=== PATIENT | male | born 1935 | race Hispanic/Latino ===

== ENCOUNTER 2019-06-24 15:06 | Observation (INO) | payer MEDICARE ==
[~2019-06-24] VITALS: Ht 172.7 cm; Wt 88.1 kg
[~2019-06-24 15:06] MED LIST: ASPI-1197 PO; DOCU100T PO; INSU200I SQ; INSU3INS3 SQ; LOSA1TAB54 PO; SERT25TA5 PO; SIMV20TA6 PO
[2019-06-24] MEDS ORDERED: AZITHROMYCIN 500MG+NS 250ML 250 ML IV ONE (15:35)
[2019-06-24] MEDS ORDERED: METHYLPREDNISOLONE SOD SUCC 40MG/ML 1ML ONE (15:35)
[2019-06-24] MEDS ORDERED: CEFTRIAXONE SODIUM 1 GM ONE (15:36)
[2019-06-24] MEDS ORDERED: 1/2 NORMAL SALINE 1,000 ML IV ONE (15:36)
[2019-06-24 15:37] LABS: BASOPHILS % (AUTO) 0.5 % (0.0-5.0); EOSINOPHILS % (AUTO) 2.3 % (0.0-8.0); HEMATOCRIT 35.9 % (42-54); LYMPHOCYTES % (AUTO) 16.8 % (21.0-51.0); MEAN CORPUSCULAR HGB CONC 33.4 g/dL (32.0-36.0); MEAN CORPUSCULAR VOLUME 83.8 fL (79-99); MONOCYTES % (AUTO) 5.6 % (3.0-13.0); NEUTROPHILS % (AUTO) 74.8 % (40.0-77.0); PLATELET COUNT (AUTO) 263 K/uL (130-400); RED BLOOD CELL COUNT(AUTO) 4.28 MIL/uL (4.50-6.20); RED CELL DISTRIBUTION WIDTH 14.7 % (11.0-15.5); WHITE BLOOD COUNT (AUTO) 15.5 K/uL (4.8-10.8)
[2019-06-24] MEDS ORDERED: SODIUM CHLORIDE 0.9% 50 ML IV ONE (15:37)
[2019-06-24 15:47] LABS: CREATININE 1.8 mg/dL (0.5-1.5); POTASSIUM 4.7 mmol/L (3.5-5.1)
[2019-06-24 15:52] LABS: ALBUMIN 3.3 g/dL (3.5-5.0); BILIRUBIN,DIRECT 0.1 mg/dL (0.0-0.3); BILIRUBIN,TOTAL 0.4 mg/dL (0.2-1.0); TOTAL PROTEIN, SERUM 8.2 g/dL (6.0-8.3)
[2019-06-24] MEDS ORDERED: IPRATROPIUM/ALBUTEROL SULFATE 3 ML SOLUTION IH ONE ×2 (16:11→18:04)
--- NOTE | 2019-06-24 19:30 | NUR ---
ADMISSION. PT ADMITTED INTO ROOM 415. PT AWAKE, ALERT AND RESPONSIVE ABLE TO VERBALIZE NEEDS. PT IN NO RESPIRATORY DISTRESS AT THIS TIME, ADMISSION VITALS ASSESSES OXYGEN SATURATION 97% ON ROOM AIR. PT DAUGHTER AT BEDSIDE, PT AND DAUGHTER ORIENTED TO ROOM, CALL GONZALEZ WITHIN REACH, BED IN LOWEST POSITION. Addendum: 06/24/19 at 2238 by ZARINA CARDONA RN Amended: Links added.
[2019-06-24 19:40] VITALS: BP 144/63
[2019-06-24 20:00] VITALS: BP 144/63
[2019-06-24] MEDS ORDERED: ENOXAPARIN SODIUM 40 MG/0.4 ML SYRINGE SQ SCH (20:00)
[2019-06-24] MEDS ORDERED: NITROGLYCERIN 0.4 MG SL TAB SL PRN (20:00)
[2019-06-24] MEDS ORDERED: DIPHENHYDRAMINE HCL 25 MG CAPSULE PO PRN (20:00)
[2019-06-24] MEDS ORDERED: GUAIFENESIN-DM 200/20 MG 10 ML PO PRN (20:00)
[2019-06-24] MEDS: 1/2 NORMAL SALINE 1,000 ML IV SCH (20:00)
[2019-06-24] MEDS ORDERED: ONDANSETRON HCL 4 MG/2 ML VIAL IVP PRN (20:00)
[2019-06-24] MEDS ORDERED: ALBUTEROL SULFATE 0.083% 2.5 MG/3 ML INH IH PRN (20:00)
[2019-06-24] MEDS ORDERED: ACETAMINOPHEN 325 MG TAB PO PRN (20:00)
[2019-06-24] MEDS ORDERED: ZOLPIDEM TARTRATE 5 MG TAB PO PRN (20:00)
[2019-06-24] MEDS ORDERED: GLUCAGON 1MG KIT 1 MG ML IM PRN (20:30)
[2019-06-24] MEDS ORDERED: DEXTROSE 50%-WATER 50 ML DISP.SYRIN IV PRN (20:30)
[2019-06-24] MEDS ORDERED: INSULIN LISPRO 100 UNIT/ML 3ML SQ SCH (21:00)
[2019-06-24] MEDS ORDERED: ALBU8.5H8 IH (23:07)
[2019-06-24] MEDS ORDERED: RIVA20TA PO (23:07)
[2019-06-24] MEDS ORDERED: IPRA3AMP24 IH (23:07)
[2019-06-24] MEDS ORDERED: FURO20TA4 PO (23:07)
[2019-06-24] MEDS ORDERED: LEVO100T12 PO (23:07)
[2019-06-24] MEDS ORDERED: DULA1.5P SQ (23:07)
[2019-06-24] MEDS ORDERED: MEMA10TA11 PO (23:07)
[2019-06-24] MEDS ORDERED: LOSA1TAB37 PO (23:07)
[2019-06-24] MEDS ORDERED: PROP150T28 PO (23:07)
[2019-06-24] MEDS ORDERED: OLME20TA22 PO (23:07)
[2019-06-24] MEDS ORDERED: MEMA10TA20 PO (23:07)
[2019-06-24] MEDS ORDERED: ATOR40TA71 PO (23:07)
[2019-06-24] MEDS ORDERED: BACL10TA PO (23:07)
[2019-06-24] MEDS ORDERED: DONE5TAB33 PO (23:07)
[2019-06-24] MEDS ORDERED: IBUP-2784 PO (23:07)
[2019-06-24] MEDS: IPRATROPIUM/ALBUTEROL SULFATE 3 ML SOLUTION IH SCH (23:31)
[2019-06-25 00:07] VITALS: BP 147/76
[2019-06-25 04:00] VITALS: BP 161/71
[2019-06-25 04:23] LABS: BASOPHILS % (AUTO) 0.2 % (0.0-5.0); EOSINOPHILS % (AUTO) 0.1 % (0.0-8.0); HEMATOCRIT 31.8 % (42-54); MEAN CORPUSCULAR HEMOGLOBIN 27.9 pg (27.0-33.0); MEAN CORPUSCULAR HGB CONC 33.9 g/dL (32.0-36.0); MEAN CORPUSCULAR VOLUME 82.4 fL (79-99); MONOCYTES % (AUTO) 1.2 % (3.0-13.0); NEUTROPHILS % (AUTO) 93.5 % (40.0-77.0); PLATELET COUNT (AUTO) 259 K/uL (130-400); RED BLOOD CELL COUNT(AUTO) 3.86 MIL/uL (4.50-6.20); RED CELL DISTRIBUTION WIDTH 14.9 % (11.0-15.5); WHITE BLOOD COUNT (AUTO) 13.3 K/uL (4.8-10.8)
[2019-06-25 04:41] LABS: BILIRUBIN,DIRECT 0.1 mg/dL (0.0-0.3); BILIRUBIN,TOTAL 0.3 mg/dL (0.2-1.0); CREATININE 1.8 mg/dL (0.5-1.5); TOTAL PROTEIN, SERUM 7.7 g/dL (6.0-8.3)
[2019-06-25] MEDS: INSULIN LISPRO 100 UNIT/ML 3ML SQ SCH ×2 (06:08→16:36)
[2019-06-25] MEDS: IPRATROPIUM/ALBUTEROL SULFATE 3 ML SOLUTION IH SCH ×3 (07:03→20:59)
[2019-06-25 07:30] VITALS: BP 129/63
[2019-06-25 11:00] VITALS: BP 122/61
[2019-06-25] MEDS ORDERED: AZITHROMYCIN 500MG+NS 250ML 250 ML IV SCH (15:00)
[2019-06-25] MEDS ORDERED: CEFTRIAXONE SODIUM 1 GM IVP SCH (15:00)
[2019-06-25 16:00] VITALS: BP 151/69
[2019-06-25] MEDS: METHYLPREDNISOLONE SOD SUCC 125MG/2ML VIAL IVP SCH (16:21)
[2019-06-25] MEDS: 1/2 NORMAL SALINE 1,000 ML IV SCH (16:22)
[2019-06-25 20:00] VITALS: BP 146/71
[2019-06-26 00:41] VITALS: BP 106/52
[2019-06-26] MEDS: IPRATROPIUM/ALBUTEROL SULFATE 3 ML SOLUTION IH SCH ×2 (01:53→06:45)
[2019-06-26 04:11] LABS: HEMATOCRIT 31.1 % (42-54); MEAN CORPUSCULAR HEMOGLOBIN 28.1 pg (27.0-33.0); MEAN CORPUSCULAR HGB CONC 33.6 g/dL (32.0-36.0); MEAN CORPUSCULAR VOLUME 83.5 fL (79-99); PLATELET COUNT (AUTO) 222 K/uL (130-400); RED BLOOD CELL COUNT(AUTO) 3.72 MIL/uL (4.50-6.20); RED CELL DISTRIBUTION WIDTH 15.1 % (11.0-15.5); WHITE BLOOD COUNT (AUTO) 19.1 K/uL (4.8-10.8)
[2019-06-26] MEDS: METHYLPREDNISOLONE SOD SUCC 125MG/2ML VIAL IVP SCH (04:14)
[2019-06-26 04:38] VITALS: BP 129/62
[2019-06-26 04:42] LABS: CREATININE 1.6 mg/dL (0.5-1.5); POTASSIUM 4.1 mmol/L (3.5-5.1)
[2019-06-26] MEDS: INSULIN LISPRO 100 UNIT/ML 3ML SQ SCH (06:32)
--- NOTE | 2019-06-26 07:40 | NUR ---
Pt awake,alert, oriented and able to answer questions appropriately. Denies pain at the moment. He is sitting up on the edge of the bed having breakfast.
[2019-06-26 08:00] VITALS: BP 138/62
--- NOTE | 2019-06-26 09:45 | NUR ---
Pt's daughter called to check on pt, informed her that her father has been discharged and her father will need to be pick out hand, she said she will send her sister Ashli to pick him up
--- NOTE | 2019-06-26 10:40 | NUR ---
Discharge instructions and follow up appointment given to pt and his daughter Ashli, verbalized understanding.
== END 2019-06-26 10:55 | disposition home or self-care (01) ==
LOC: EDH 15:06 → EDHIP 15:07 → UNDOADMOB 15:07 → 3AH 15:07 → 4CH 19:31
PROVIDERS: ADMIT Internal Medicine; ATTEND Internal Medicine
DX: J44.1 Chronic obstructive pulmonary disease with (acute) exacerbation (principal); A41.9 Sepsis, unspecified organism; D64.9 Anemia, unspecified; E11.9 Type 2 diabetes mellitus without complications; E78.5 Hyperlipidemia, unspecified; N17.9 Acute kidney failure, unspecified; Z79.01 Long term (current) use of anticoagulants; Z95.2 Presence of prosthetic heart valve
CPT/HCPCS: 36415 ×3; 71046; 80048 ×3; 80076 ×2; 82948 ×5; 85025 ×2; 85027; 94640 ×7; 94664; 96365; 96366; 96372 ×3; 96375; 96376; 99284; G0378 ×37; J0456 ×2; J0696 ×2; J1650; J2920; J2930 ×2

== ENCOUNTER → 2021-12-30 | Outpatient (CLI) | payer MEDICARE ==
[~2021-12-30] MED LIST changes: +ALBU8.5H8 IH; +ATOR40TA71 PO; +BACL10TA PO; -DOCU100T PO; +DONE5TAB33 PO; +DULA1.5P SQ; +FURO20TA4 PO; +IBUP-2784 PO; -INSU200I SQ; +IPRA3AMP24 IH; +LEVO100T12 PO; +LOSA1TAB37 PO; -LOSA1TAB54 PO; +MEMA10TA11 PO; +MEMA10TA55 PO; +OLME20TA22 PO; +PROP150T28 PO; +RIVA20TA PO; +SERT-438 PO; -SERT25TA5 PO; -SIMV20TA6 PO
== END | disposition home or self-care (01) ==
LOC: SHCH 12:09
PROVIDERS: ATTEND Internal Medicine Cardiovascular Disease
DX: I08.0 Rheumatic disorders of both mitral and aortic valves (principal); I48.0 Paroxysmal atrial fibrillation; R00.2 Palpitations; Z95.2 Presence of prosthetic heart valve
CPT/HCPCS: 93306

== ENCOUNTER 2024-11-10 16:16 | Emergency (ER) | payer MEDICARE ==
[~2024-11-10] VITALS: Ht 182.9 cm; Wt 77.1 kg
[~2024-11-10 16:16] MED LIST changes: -ALBU8.5H8 IH; -ASPI-1197 PO; -ATOR40TA71 PO; -BACL10TA PO; -DONE5TAB33 PO; -DULA1.5P SQ; -FURO20TA4 PO; -IBUP-2784 PO; -INSU3INS3 SQ; -IPRA3AMP24 IH; -LEVO100T12 PO; +LINE600T11 PO; -LOSA1TAB37 PO; -MEMA10TA11 PO; -MEMA10TA55 PO; +NYST100033 PO; -OLME20TA22 PO; -PROP150T28 PO; -RIVA20TA PO; -SERT-438 PO
--- NOTE | 2024-11-10 16:43 | ERN ---
General Chief Complaint: Abnormal Labs Stated Complaint: ABNORMAL LABS Time Seen by MD: 16:19 Source: patient, EMS History of Present Illness Initial Comments Patient is a an 88-year-old male coming in to be evaluated for abnormal labs. Per EMS patient was sent in for further he evaluation due to abnormal labs. Unknown what labs are abnormal. Allergies: Coded Allergies: No Known Allergies (Unverified Allergy, Unknown, 06/20/15) Home Meds Reported Medications Linezolid (Zyvox) 600 Mg Tablet, 1 TAB PO BID for 14 Days, #28 TAB 0 Refills with food 10/20/24 Nystatin (Nystatin) 100,000 Unit/Ml Oral.susp, 5 ML PO QID for 10 Days, #200 ML 0 Refills 10/20/24 Past Medical History Past Medical History: A-Fib, CAD, COPD, Dementia, Depression, Diabetes-Type II, High Cholesterol, Heart Disease, Hypertension, Hypothyroid, Renal Disese Medical History Other: CELLULITIS, OSTEOMYLITIS, DYSPHAGIA, ULCERS TO LEFT HEEL & MIDFOOT, AMS Past Surgical History: None Family History Family History: Negative Social History Social History: Negative ROS Dictation CONSTITUTIONAL: No chills, no fever, no weakness, no diaphoresis, no malaise. HEAD/FACE: No signs of trauma. EENT: No eye pain, no blurred vision, no tearing, no double vision, no ear pain, no ear discharge, no nose pain, no nasal congestion, no throat pain, no throat swelling, no mouth pain. RESPIRATORY: No cough, no orthopnea, no SOB, no stridor, no wheezing. CARDIOVASCULAR: No chest pain, no edema, no palpitations, no syncope. GASTROINTESTINAL/ABDOMINAL: No abdominal pain, no constipation, no diarrhea, no nausea, no vomiting. GENITOURINARY: No abnormal discharge, no dysuria, no frequent urination, no hematuria. No complaints of pain in the genitals. MUSCULOSKELETAL: No back pain, no gout, no joint pain, no joint swelling, no muscle pain, no muscle stiffness, no neck pain. INTEGUMENTARY: No change in color, no change in hair/nails, no dryness, no lesion, no lumps, no rash. NEUROLOGICAL/PSYCH: No anxiety, not depressed, no emotional problem, no headache, no numbness, no pre-existing deficit, no history of seizures, no tremors, no weakness. HEMATOLOGIC/LYMPHATIC: Not anemic, no history of blood clots, no apparent bleeding, no bruising, glands not swollen. All Systems Negative, Except as Noted. Physical Exam Physical Exam Dictation VITAL SIGNS: Reviewed. GENERAL APPEARANCE: Alert, disoriented, no acute distress, obese. HEAD AND FACE: Non-traumatic. EYES: PERRL, pink conjunctivas, eyelid no trauma, anterior chamber clear. EARS: Pinnas intact and no signs of trauma or erythema. Ear canals clear and no discharge. TMs no erythema. NOSE: No discharge, no bleeding. OROPHARYNX: Mouth normal, teeth no caries, tongue pink. Pharynx clear, no erythema. Tonsils no exudates, no abscesses noted. Mucous membrane moist. NECK: Supple, non-tender, no thyromegaly, no masses, no JVD, no bruits. BREAST: Deferred. CHEST: No tenderness, no crepitus, no paradoxical movement, no retractions. LUNGS: Clear, well-ventilated, symmetric, no rales, no wheezing, no rhonchi, no stridor, good breath sounds bilaterally. HEART: Regular rate, regular rhythm, no murmur, no gallops. VASCULAR: No peripheral edema. ABDOMEN: Soft, positive bowel sounds, nondistended, no guarding, nontender, no rebound, no masses no hepatomegaly, no splenomegaly, no Juarez's sign, no hernias. RECTAL: Deferred. GENITAL: Deferred. NEUROLOGICAL: Normal speech, gross motor function intact, gross sensory function intact. MUSCULOSKELETAL: Neck nontender, full range of motion, back nontender, full range of motion. EXTREMITIES: Nontender, full range of motion. SKIN: Color pink, dry, no turgor, no rash, no lacerations, no abrasions, no contusions. LYMPHATICS: Deferred. Results Laboratory and Microbiology Lab and Micro Result Laboratory Tests Test 11/10/24 15:20 11/10/24 16:40 Urine Color YELLOW (YELLOW) Urine Appearance CLOUDY (CLEAR) H Urine pH 5.0 (5.0-8.0) Urine Specific [place] 1.014 (1.001-1.031) Urine Protein 50 mg/dL (NEGATIVE) H Urine Glucose (UA) 150 mg/dL (NEGATIVE) H Urine Ketones 5 mg/dL (NEGATIVE) H Urine Occult Blood SMALL (NEGATIVE) H Urine Nitrate 1+ (NEGATIVE) H Urine Bilirubin NEGATIVE mg/dL (NEGATIVE) Urine Urobilinogen 0.2 mg/dL (0.2-1.0) Urine Leukocyte Esterase 500 Parish/uL (NEGATIVE) H Urine RBC 26-50 /HPF (0-1) H Urine WBC 51-100 /HPF (0-1) H Urine WBC Clumps (Auto) FEW /HPF (0-1) Urine Other Crystals (Auto) 9 /HPF (None Seen) Urine Bacteria RARE /HPF (None Seen) Urine Yeast MOD /HPF (None Seen) White Blood Count 16.1 K/uL (4.8-10.8) H Red Blood Count 3.26 MIL/uL (4.50-6.20) L Hemoglobin 8.6 g/dL (14.0-18.0) L Hematocrit 29.4 % (42-54) L Mean Corpuscular Volume 90.2 fL (79-99) Mean Corpuscular Hemoglobin 26.4 pg (27.0-33.0) L Mean Corpuscular Hemoglobin Concent 29.3 g/dL (32.0-36.0) L Red Cell Distribution Width 16.9 % (11.0-15.5) H Platelet Count 259 K/uL (130-400) Mean Platelet Volume 9.1 fL (7.5-10.5) Immature Granulocyte % (Auto) 3.2 % (0-1) H Neutrophils (%) (Auto) 83.1 % (40.0-77.0) H Lymphocytes (%) (Auto) 6.3 % (21.0-51.0) L Monocytes (%) (Auto) 4.0 % (3.0-13.0) Eosinophils (%) (Auto) 3.0 % (0.0-8.0) Basophils (%) (Auto) 0.4 % (0.0-5.0) Neutrophils # (Auto) 13.4 K/uL (1.8-7.7) H Lymphocytes # (Auto) 1.0 K/uL (1.0-4.8) Monocytes # (Auto) 0.6 K/uL (0.1-1.0) Eosinophils # (Auto) 0.49 K/uL (0.00-0.70) Basophils # (Auto) 0.06 K/uL (0.00-0.20) Absolute Immature Granulocyte (auto 0.51 K/uL (0-1) Nucleated Red Blood Cells 0.0 % (0.0-0.19) Sodium Level 153 mmol/L (136-145) H Potassium Level 3.6 mmol/L (3.5-5.1) Chloride Level 102 mmol/L (101-111) Carbon Dioxide Level 35 mmol/L (21-32) H Blood Urea Nitrogen 179 mg/dL (7-18) *H Creatinine 14.6 mg/dL (0.5-1.3) *H Glomerular Filtration Rate Calc 3 mL/min (>90) Random Glucose 282 mg/dL (70-105) H Total Calcium 8.0 mg/dL (8.5-10.1) L EKG/XRAY/US/CT/MRI X-RAY Comment [place] [id number] [id number] IMAGING REPORT Signed PATIENT: IDANIA GOLD JR MR#: [id number] : 1935 SEX: M AGE: 88 LOCATION: [facility] ORDER 13 STATUS: REG REPORT#: [id number] SERVICE 12 REASON: cough ORDERING PHYSICIAN: CALVIN ESPANA MD PROCEDURE: CXR1VW - CHEST 1VW PORTABLE CHEST RADIOGRAPH INDICATION: cough COMPARISON: 10/19/2024 FINDINGS: desk monitor leads overlie the field of view. Median sternotomy wires are in appropriate alignment. Patient positioning is not optimal, in this exam is limited as result. Heart size is normal. The pulmonary vascularity and jessie appear normal. No abnormal pulmonary parenchymal opacity or consolidation identified. Right hilar/perihilar calcified lymph nodes and subcentimeter left upper lung calcified granulomas. No significant pleural effusion noted. No pneumothorax detected. IMPRESSION: Significant limitations as reported. Suspect mild left lung pulmonary edema, but may be artifactual secondary to suboptimal patient positioning. Follow-up dedicated two-view chest radiograph is advised in order to ensure resolution. DICTATED BY: DARLENE DEAN MD DATE: 11/10/241739 ELECTRONICALLY SIGNED BY: DARLENE DEAN MD DATE: 11/10/241743 [facility] MDM: Differential diagnosis: UTI, leukocytosis, history of dysphagia, Patient is a an 88-year-old male on hospitalist coming in for further evaluation. Per EMS patient had normal labs. In speaking to and the with the patient's primary care physician's patient was to be evaluated , patient did present with a urinary tract infection and mild leukocytosis. Patient was hydrated with 250 bag of IV fluids since he does have a history of end-stage renal disease in his not on dialysis and the urinary tract infection. Patient will be discharged back to custodial after receiving fluids and antibiotics. ED Course Orders Procedure Category Date Status Time Cbc With Differential LAB 11/10/24 In Process 16:26 Basic Metabolic Panel LAB 11/10/24 Complete 16:26 Urinalysis LAB 11/10/24 Complete W/Microscopic 16:26 Chest 1vw RAD 11/10/24 Resulted 17:13 0.9%Nacl 1000ml (Ns PHA 11/10/24 Complete 1000ml) 17:30 Culture Urine REAL 11/10/24 In Process 17:40 0.9% Nacl 250ml (Ns PHA 11/10/24 In Process 250ml) 19:00 Current Medications Medications (Trade) Dose Ordered Sig/Drew Route PRN Reason Start Time Stop Time Status Last Admin Dose Admin Sodium Chloride 1,000 ml @ 0 mls/hr ONCE ONCE IV 11/10/24 17:30 11/10/24 17:31 DC Sodium Chloride 1,551 ml @ 517 mls/hr ONCE ONCE IV 11/10/24 19:00 11/10/24 21:59 11/10/24 18:36 Vital Signs Date Time Temp Pulse Resp B/P (MAP) Pulse Ox O2 Delivery O2 Flow Rate FiO2 11/10/24 18:27 98.1 111 16 129/55 96 Nasal Cannula* 4 36 11/10/24 16:17 97.0 105 20 141/65 99 Nasal Cannula 4.0 DX & DISP Disposition: Discharge Departure Impression: Primary Impression: URINARY TRACT INFECTION, SITE NOT SPECIFIED Additional Impression: Hospice care Condition: Stable Additional Instructions: FOLLOW-UP WITH PRIMARY CARE PROVIDER IN 1 TO 2 DAYS. TAKE MEDICATIONS DIRECTED HERE IN THE EMERGENCY ROOM. OKAY TO CONTINUE HOME MEDICATIONS UNLESS OTHERWISE DISCUSSED DURING YOUR VISIT IN THE EMERGENCY ROOM TODAY. RETURN TO YOUR NEAREST EMERGENCY ROOM IF SYMPTOMS WORSEN OR IF THERE IS NO IMPROVEMENT. CALL 911 IF YOU NEED IMMEDIATE ASSISTANCE. TAKE TYLENOL [id number] NEEDED AND IF NO CONTRAINDICATIONS ARE PRESENT. INCREASE ORAL HYDRATION. A WOUND CULTURE OR URINE CULTURE WAS ORDERED HERE IN THE EMERGENCY ROOM DEPARTMENT PLEASE FOLLOW-UP WITH PRIMARY CARE PROVIDER AND ADVISE THEM TO GET REPEAT PORTS FROM OUR FACILITY. IF YOU HAD ANY ELE WRAP/SPLINTS THAT WERE APPLIED HERE, PLEASE DO NOT REMOVE THEM UNTIL YOU SEE YOUR PRIMARY CARE OR SPECIALTY. Referrals: Referrals: ROSLYN CURRY MD (PCP) Time of Disposition: 18:58 CALVIN ESPANA MD Nov 10, 2024 16:43
[2024-11-10 17:02] LABS: BASOPHILS # (AUTO) 0.06 K/uL (0.00-0.20); BASOPHILS % (AUTO) 0.4 % (0.0-5.0); EOSINOPHILS # (AUTO) 0.49 K/uL (0.00-0.70); HEMATOCRIT 29.4 % (42-54); IMMATURE GRANULOCYTE ABSOLUTE 0.51 K/uL (0-1); LYMPHOCYTES % (AUTO) 6.3 % (21.0-51.0); MEAN CORPUSCULAR HEMOGLOBIN 26.4 pg (27.0-33.0); MEAN CORPUSCULAR HGB CONC 29.3 g/dL (32.0-36.0); MEAN CORPUSCULAR VOLUME 90.2 fL (79-99); MONOCYTES # (AUTO) 0.6 K/uL (0.1-1.0); NEUTROPHILS # (AUTO) 13.4 K/uL (1.8-7.7); NEUTROPHILS % (AUTO) 83.1 % (40.0-77.0); PLATELET COUNT (AUTO) 259 K/uL (130-400); RED BLOOD CELL COUNT(AUTO) 3.26 MIL/uL (4.50-6.20); RED CELL DISTRIBUTION WIDTH 16.9 % (11.0-15.5); WHITE BLOOD COUNT (AUTO) 16.1 K/uL (4.8-10.8)
[2024-11-10 17:26] LABS: POTASSIUM 3.6 mmol/L (3.5-5.1)
--- NOTE | 2024-11-10 17:27 | NUR ---
URINE SPECIMEN WAS COLLECTED FROM PENA CATHETER PORT, PER DAUGHTER PENA WAS SURGICALLY INSERTED IN SEPTEMBER, THEREFORE SHOULD NOT BE REMOVED OR CHANGED. URINE IN PENA BAG IS CLOUDY, MILKY YELLOW IN COLOR WITH FOUL ODOR
[2024-11-10 17:33] LABS: APPEARANCE,URINE CLOUDY (CLEAR); BILIRUBIN,URINE NEGATIVE (NEGATIVE); COLOR,URINE YELLOW (YELLOW); GLUCOSE, URINE (UA) 150 mg/dL (NEGATIVE); KETONES,URINE 5 mg/dL (NEGATIVE); LEUKOCYTE ESTERASE ,URINE 500 Leu/uL (NEGATIVE); NITRATE,URINE 1+ (NEGATIVE); OCCULT BLOOD,URINE SMALL (NEGATIVE); PROTEIN,URINE 50 mg/dL (NEGATIVE); UROBILINOGEN,URINE 0.2 mg/dL (0.2-1.0)
[2024-11-10 17:37] LABS: CREATININE 14.6 mg/dL (0.5-1.3)
[2024-11-10 17:41] LABS: BACTERIA,URINE RARE /HPF (None Seen); MUCUS,URINE RARE LPF (None Seen); RBC,URINE 26-50 /HPF (0-1); UNCLASSIFIED CRYSTAL 9 /HPF (None Seen); WBC CLUMP FEW /HPF (0-1); WBC,URINE 51-100 /HPF (0-1); YEAST,URINE BUDDING MOD /HPF (None Seen)
--- NOTE | 2024-11-10 17:44 | HMCIMG ---
PORTABLE CHEST RADIOGRAPH INDICATION: cough COMPARISON: 10/19/2024 FINDINGS: clinical rn liaison leads overlie the field of view. Median sternotomy wires are in appropriate alignment. Patient positioning is not optimal, in this exam is limited as result. Heart size is normal. The pulmonary vascularity and jessie appear normal. No abnormal pulmonary parenchymal opacity or consolidation identified. Right hilar/perihilar calcified lymph nodes and subcentimeter left upper lung calcified granulomas. No significant pleural effusion noted. No pneumothorax detected. IMPRESSION: Significant limitations as reported. Suspect mild left lung pulmonary edema, but may be artifactual secondary to suboptimal patient positioning. Follow-up dedicated two-view chest radiograph is advised in order to ensure resolution.
--- NOTE | 2024-11-10 17:45 | NUR ---
DR. ESPANA MADE AWARE OF CRITICAL LABS BUN 179 CREAT 14.6, NO NEW ORDERS AT THIS TIME
[2024-11-10] MEDS: NACL IV ONE (18:36)
[2024-11-10] MEDS: 0.9%NACL 1000ML 1,000 ML IV ONE (18:37)
[2024-11-10] MEDS: cefTRIAXone 1G VIAL IVPB ONE (19:37)
[2024-11-10 22:29] VITALS: BP 136/40; PULSE 112; RESP 16; TEMP 98; O2SAT 97
--- NOTE | 2024-11-10 22:31 | NUR ---
[facility] EMS AT BEDSIDE FOR TRANSPORT BACK TO SNF, REPORT GIVEN TO EVERARDO LONGORIA AT [facility], NURSE EXPECTING PT ARRIVAL TO THE SNF, PT TO GO TO BED 404A. ALL QUESTIONS ANSWERED AT THIS TIME. NO SIGNS OF ACUTE DISTRESS NOTED AT TIME OF DEPARTURE, ALL PT BELONGINGS SENT WITH PT AT THIS TIME.
== END 2024-11-10 22:36 ==
LOC: EDH 16:16
DX: N39.0 Urinary tract infection, site not specified (principal); I48.91 Unspecified atrial fibrillation; E03.9 Hypothyroidism, unspecified; E11.9 Type 2 diabetes mellitus without complications; E78.00 Pure hypercholesterolemia, unspecified; F03.90 Unspecified dementia, unspecified severity, without behavioral disturbance, psychotic disturbance, mood disturbance, and anxiety; I10 Essential (primary) hypertension; I25.10 Atherosclerotic heart disease of native coronary artery without angina pectoris; J44.9 Chronic obstructive pulmonary disease, unspecified; Z79.899 Other long term (current) drug therapy
CPT/HCPCS: 99285; 96365; 96361; J0696; 36415; 71045; 80048; 81001; 85025; 87086; 87186

== ENCOUNTER 2024-11-11 15:43 | Inpatient (IN) | payer MEDICARE ==
[~2024-11-11] VITALS: Ht 172.7 cm; Wt 78.5 kg
--- NOTE | 2024-11-11 17:27 | HMCIMG ---
FRONTAL CHEST RADIOGRAPH INDICATION: hypoxia COMPARISON: 11/10/2024 FINDINGS/IMPRESSION: hall monitor leads overlie the field of view. Median sternotomy wires are in appropriate alignment. Patient positioning is not optimal, but the radiologic examination is still believed to be of reasonable diagnostic quality. Stable heart size without pulmonary vascular congestion. Unchanged left lung greater than right midlung pulmonary edema or other airspace disease, without pneumothorax.
[2024-11-11 17:33] LABS: BASOPHILS # (AUTO) 0.08 K/uL (0.00-0.20); BASOPHILS % (AUTO) 0.5 % (0.0-5.0); EOSINOPHILS # (AUTO) 0.48 K/uL (0.00-0.70); EOSINOPHILS % (AUTO) 3.2 % (0.0-8.0); HEMATOCRIT 29.5 % (42-54); IMMATURE GRANULOCYTE ABSOLUTE 0.69 K/uL (0-1); LYMPHOCYTES % (AUTO) 6.3 % (21.0-51.0); MEAN CORPUSCULAR HEMOGLOBIN 26.4 pg (27.0-33.0); MEAN CORPUSCULAR HGB CONC 29.5 g/dL (32.0-36.0); MEAN CORPUSCULAR VOLUME 89.7 fL (79-99); MONOCYTES # (AUTO) 0.6 K/uL (0.1-1.0); MONOCYTES % (AUTO) 3.9 % (3.0-13.0); NEUTROPHILS # (AUTO) 12.3 K/uL (1.8-7.7); NEUTROPHILS % (AUTO) 81.5 % (40.0-77.0); NUCLEATED RED BLOOD CELLS 0.1 % (0.0-0.19); PLATELET COUNT (AUTO) 234 K/uL (130-400); RED BLOOD CELL COUNT(AUTO) 3.29 MIL/uL (4.50-6.20); WHITE BLOOD COUNT (AUTO) 15.1 K/uL (4.8-10.8)
[2024-11-11 17:41] LABS: ABG BASE EXCESS 4.6 mmol/L (-2.0-3.0); ABG HCO3 29.1 mmol/L (21.0-28.0); ABG OXYGEN SATURATION 96.8 % (94.0-98.0); ABG PCO2 44 mmHg (35-48); ABG PH 7.444 (7.350-7.450); CARBON MONOXIDE 0.4 % (0.5-1.5); HHb 3.2; PO2, ARTERIAL BG 93.3 mmHg (83.0-108.0); VENT MODE, BG NC (ROOM AIR)
[2024-11-11 17:57] LABS: B-TYPE NATRIURETIC PEPTIDE 839 pg/mL (0-100)
--- NOTE | 2024-11-11 18:02 | ERN ---
General Chief Complaint: Shortness of Breath Stated Complaint: SOB Time Seen by MD: 15:49 History of Present Illness Initial Comments 88-year-old male brought in by EMS from [facility] for episodes of hypoxia. Patient has a history of dementia, currently being treated for UTI, bed-bound. According to family he has been a little bit more active than usual although he is not speak much. He is producing urine. Decreased oral intake. He was in no respiratory distress currently, EMS found him to be on 3 L of oxyg en which is his baseline. He was tachycardic heart rate in the 120s, appears to be AFib. According to family, patient was recently on hospice, but this was developed because they felt that he was doing better. They would like IV antibiotics, but patient is a DNR/DNI. Allergies: Coded Allergies: No Known Allergies (Unverified Allergy, Unknown, 06/20/15) Home Meds Reported Medications Linezolid (Zyvox) 600 Mg Tablet, 1 TAB PO BID for 14 Days, #28 TAB 0 Refills with food 10/20/24 Nystatin (Nystatin) 100,000 Unit/Ml Oral.susp, 5 ML PO QID for 10 Days, #200 ML 0 Refills 10/20/24 Past Medical History Past Medical History: A-Fib, CAD, COPD, Dementia, Depression, Diabetes-Type II, High Cholesterol, Heart Disease, Hypertension, Hypothyroid, Renal Disese Medical History Other: CELLULITIS, OSTEOMYLITIS, DYSPHAGIA, ULCERS TO LEFT HEEL & MIDFOOT, AMS Past Surgical History: None Family History Family History: Negative Social History Social History: Negative ROS Dictation Unable to obtain, patient has a history of dementia Physical Exam Physical Exam Dictation VITAL SIGNS: Reviewed. GENERAL APPEARANCE: Baseline mentation HEAD AND FACE: Non-traumatic. EYES: PERRL, pink conjunctivas, eyelid no trauma, anterior chamber clear. EARS: Pinnas intact and no signs of trauma or erythema. Ear canals clear and no discharge. TMs no erythema. NOSE: No discharge, no bleeding. OROPHARYNX: Mouth normal, teeth no caries, tongue pink. Pharynx clear, no erythema. Tonsils no exudates, no abscesses noted. Mucous membrane moist. NECK: Supple, non-tender, no thyromegaly, no masses, no JVD, no bruits. BREAST: Deferred. CHEST: No tenderness, no crepitus, no paradoxical movement, no retractions. LUNGS: Coarse lungs HEART: Regular rate, regular rhythm, no murmur, no gallops. VASCULAR: No peripheral edema. ABDOMEN: Soft, positive bowel sounds, nondistended, no guarding, nontender, no rebound, no masses no hepatomegaly, no splenomegaly, no Juarez's sign, no hernias. RECTAL: Deferred. GENITAL: Deferred. NEUROLOGICAL: Normal speech, gross motor function intact, gross sensory function intact. MUSCULOSKELETAL: Decreased range of motion baseline for patient EXTREMITIES: Nontender, full range of motion. SKIN: Color pink, dry, no turgor, no rash, no lacerations, no abrasions, no contusions. LYMPHATICS: Deferred. Results Laboratory and Microbiology Lab and Micro Result Laboratory Tests Test 11/11/24 17:00 11/11/24 17:40 White Blood Count 15.1 K/uL (4.8-10.8) H Red Blood Count 3.29 MIL/uL (4.50-6.20) L Hemoglobin 8.7 g/dL (14.0-18.0) L Hematocrit 29.5 % (42-54) L Mean Corpuscular Volume 89.7 fL (79-99) Mean Corpuscular Hemoglobin 26.4 pg (27.0-33.0) L Mean Corpuscular Hemoglobin Concent 29.5 g/dL (32.0-36.0) L Red Cell Distribution Width 17.0 % (11.0-15.5) H Platelet Count 234 K/uL (130-400) Mean Platelet Volume 9.1 fL (7.5-10.5) Immature Granulocyte % (Auto) 4.6 % (0-1) H Neutrophils (%) (Auto) 81.5 % (40.0-77.0) H Lymphocytes (%) (Auto) 6.3 % (21.0-51.0) L Monocytes (%) (Auto) 3.9 % (3.0-13.0) Eosinophils (%) (Auto) 3.2 % (0.0-8.0) Basophils (%) (Auto) 0.5 % (0.0-5.0) Neutrophils # (Auto) 12.3 K/uL (1.8-7.7) H Lymphocytes # (Auto) 1.0 K/uL (1.0-4.8) Monocytes # (Auto) 0.6 K/uL (0.1-1.0) Eosinophils # (Auto) 0.48 K/uL (0.00-0.70) Basophils # (Auto) 0.08 K/uL (0.00-0.20) Absolute Immature Granulocyte (auto 0.69 K/uL (0-1) Nucleated Red Blood Cells 0.1 % (0.0-0.19) Sodium Level 155 mmol/L (136-145) H Potassium Level 3.6 mmol/L (3.5-5.1) Chloride Level 105 mmol/L (101-111) Carbon Dioxide Level 33 mmol/L (21-32) H Blood Urea Nitrogen 182 mg/dL (7-18) *H Creatinine 13.7 mg/dL (0.5-1.3) *H Glomerular Filtration Rate Calc 3 mL/min (>90) Random Glucose 316 mg/dL (70-105) H Lactic Acid Level 1.8 mmol/L (0.8-2.5) Total Calcium 8.0 mg/dL (8.5-10.1) L Magnesium Level 2.20 mg/dL (1.80-2.40) Total Creatine Kinase 34 U/L (21-232) Troponin I High Sensitivity 55.1 ng/L (4-75) B-Type Natriuretic Peptide 839 pg/mL (0-100) H Blood Gas Specimen Type Arterial Arterial Blood pH 7.444 (7.350-7.450) Arterial Blood Partial Pressure CO2 44 mmHg (35-48) Arterial Blood Partial Pressure O2 93.3 mmHg (83.0-108.0) Arterial Blood HCO3 29.1 mmol/L (21.0-28.0) H Arterial Blood Oxygen Saturation 96.8 % (94.0-98.0) Arterial Blood Base Excess 4.6 mmol/L (-2.0-3.0) H Hemoglobin (Blood Gas) 9.0 g/dL (13.5-17.5) L Sodium (Blood Gas) 153 MMOL/L (136-145) H Bedside Potassium (Blood Gas) 3.5 MMOL/L (3.4-4.5) Bedside Chloride (Blood Gas) 106 MMOL/L (98-107) Bedside Glucose (Blood Gas) 282 MG/DL (65-95) H Bedside Ionized Calcium (Blood Gas) 0.94 MMOL/L (1.15-1.33) L Bedside Lactic Acid (Blood Gas) 1.59 MMOL/L (0.36-0.75) H Blood Gas Temperature 37.0 CELSIUS (35.5-37.0) Blood Gas Flow-by 3.00 L/min (0.00-15.00) Blood Gas Vent Mode NC (ROOM AIR) FiO2 32.0 % Blood Gas Specimen Comment LB DR FERNANDEZ MDM CC: Episodes of hypoxia, cough Historian: EMS, patient does not speak date of dementia at baseline. Comorbidities: Advanced age, hypertension, diabetes, atrial fibrillation, dementia. Differential diagnosis: Sepsis UTI other Vital signs: Heart rate 124, respiratory rate Toradol, blood pressure 114/67, 98% on 3 L oxygen. Labs (independently ordered and interpreted by me): Leukocytosis [id number] left shift. No bands. Normocytic anemia hemoglobin 8.7. Chemistry shows sodium 155 the creatinine 13.7 a BUN of 182. On chart review this appears to be NATASHA on CKD. Also hyperglycemia blood glucose 316. Patient meets sepsis criteria, so started on sepsis protocol. in the ER patient placed on oxygen, 4 L, 2 L lactated Ringer given, Rocephin IV. On sepsis focused re-evaluation patient was stable perfusion. CXR (independently interpreted by me): Some congestion on the left side, no cardiomegaly, no focal infiltrates. Consultation: Dr. Hernandez for admission ED Course Orders Procedure Category Date Status Time Cardiac Panel LAB 11/11/24 Complete 15:58 Cbc With Differential LAB 11/11/24 Complete 15:58 Basic Metabolic Panel LAB 11/11/24 Complete 15:58 B-Type Natriuretic LAB 11/11/24 Complete Peptide 15:58 Magnesium LAB 11/11/24 Complete 15:58 Urinalysis Profile LAB 11/11/24 Logged 15:58 Lactated Ringers PHA 11/11/24 Complete 1000ml (Lactated 16:00 12 Lead Ekg Tracing- EKG 11/11/24 Logged Technical 15:58 Chest 1vw RAD 11/11/24 Resulted 15:58 Arterial Blood Gas + RT 11/11/24 Transmitted 15:58 Lactic Acid LAB 11/11/24 Complete 16:20 Blood Cult REAL 11/11/24 Logged 16:20 Ceftriaxone 1g Vial PHA 11/11/24 Complete (Rocephine 1g Inj) 18:00 Arterial Blood Gas LAB 11/11/24 Complete Arterial + 17:40 Lactated Ringers PHA 11/11/24 Complete 1000ml (Lactated 18:30 Current Medications Medications (Trade) Dose Ordered Sig/Drew Route PRN Reason Start Time Stop Time Status Last Admin Dose Admin Ceftriaxone Sodium (ROCEphine 1G INJ) 1 gm ONCE ONCE IVPB 11/11/24 18:00 11/11/24 18:01 DC Lactated Ringer's 1,000 ml @ 0 mls/hr ONCE ONCE IV 11/11/24 16:00 11/11/24 16:01 DC Lactated Ringer's 1,000 ml @ 0 mls/hr ONCE ONCE IV 11/11/24 18:30 11/11/24 18:31 DC DX & DISP Disposition: Inpatient Departure Impression: Primary Impression: Sepsis Additional Impressions: Hypernatremia, Renal failure, Pneumonia, Dehydration, Respiratory failure with hypoxia Critical Time: 30 minutes (Critical Care Procedure NoteAuthorized and Performed by: meTotal critical care time: Approximately 36 minutesDue to a high probability of clinically significant, life threatening deterioration, the patient required my highest level of preparedness to intervene emergently and I personally spent this critical care time directly and personally managing the patient. This critical care time included obtaining a history; examining the patient; pulse oximetry; ordering and review of studies; arranging urgent treatment with development of a management plan; evaluation of patient's r esponse to treatment; frequent reassessment; and, discussions with other providers.This critical care time was performed to assess and manage the high probability of imminent, life-threatening deterioration that could result in multi-organ failure. It was exclusive of separately billable procedures and treating other patients and teaching time.Please see MDM section and the rest of the note for further information on patient assessment and treatment.) Condition: Stable Referrals: ROSLYN CURRY MD (PCP) ELIJAH FERNANDEZ DO Nov 11, 2024 18:02
[2024-11-11 18:07] LABS: MAGNESIUM 2.2 mg/dL (1.80-2.40); POTASSIUM 3.6 mmol/L (3.5-5.1)
--- NOTE | 2024-11-11 18:12 | NUR ---
SAYRA MADE AWARE
[2024-11-11 18:13] LABS: CREATININE 13.7 mg/dL (0.5-1.3)
[2024-11-11] MEDS: LACTATED RINGERS 1000ML 1,000 ML IV ONE ×2 (18:30→21:11)
--- NOTE | 2024-11-11 19:40 | NUR ---
assume care of this patient. at this time
--- NOTE | 2024-11-11 20:11 | HP ---
History of Present Illness Reason for Visit: sob History of Present Illness Mr. Robson mari is an 88-year-old male that was seen and examined today on 11/11/2024. Patient is a poor historian and personal health due to underlying dementia. There was no family members at bedside to provide any additional information. The following was obtained from a combination of emergency room physician report and previous medical records available to me from prior ad missions to this hospital. Patient came to the emergency department with a chief complaint of shortness of breath. Onset was 11/11/2024. Location is to lungs. Duration is constant. Character is described as labored respirations and low O2 saturation at the intermediate. There was no alleviating factors. There was no aggravating factors. There is associated tachycardia. Today in the emergency department WBCs 15.1, left shift neutrophils 81.5, sodium 155, creatinine 13.7, BUN 182, glucose 360 mg/dL, BNP 839, at time of admission there was no documented vital signs in the EMR, no urinalysis has been collected or sent to lab, chest x-ray shows pulmonary edema. Additionally [facility] 10[facility]24/2024 under hospice care. Today family decided to reverse hospice due to patient's declining condition. Patient's PCP, Dr. Ware was contacted who informed ER staff that he has since discharge this patient from his care. Also physician who resume care after patient was discharged from Dr. Sorensen service, Dr. Hernandez states that he no longer provides medical care to this patient. Therefore hospitalist service was contacted for admission. Past Medical History Patient History: Unknown ADDITIONAL PAST MEDICAL HISTORY: [Atrial fibrillation, CAD, aortic stenosis, Diabetes mellitius type2, COPD, hyperlipidemia, CKD, dementia, hypothyroidism] SOCIAL HISTORY: [Negative for current smoking, alcohol use, drug use] SURGICAL HISTORY: [CABG, heart catheterization, circumcision, aortic valve replacement] Review of Systems General: No Fever, No Chills, No Night Sweats, No Fatigue, No Malaise, No Appetite, No Other HEENT: No Head Aches, No Visual Changes, No Eye Pain, No Ear Pain, No Dysphasia, No Sinus Congestion, No Post Nasal Drip, No Sore Throat, No Other Pulmonary: Dyspnea; No Cough, No Pleuritic Chest Pain, No Other Cardiovascular: No: Chest Pain, Palpitations, Orthopnea, Paroxysmal Noc. Dyspnea, Edema, Lt Headedness, Other Gastrointestinal: No: Nausea, Vomiting, Abdominal Pain, Diarrhea, Constipation, Melena, Hematochezia, Other Genitourinary: No Dysuria, No Frequency, No Incontinence, No Hematuria, No Retention, No Other Musculoskeletal: No: other, neck pain, shoulder pain, arm pain, back pain, hand pain, leg pain, foot pain Skin: No Urticaria, No Rash, No Other Neurological: No: Weakness, Numbness, Incoordination, Change in speech, Confusion, Seizures, Other Allergies: Coded Allergies: No Known Allergies (Unverified Allergy, Unknown, 06/20/15) Scheduled Linezolid (Zyvox), 1 TAB PO BID, (Reported) Nystatin (Nystatin), 5 ML PO QID, (Reported) Exam General Appearance: Alert (X1), No acute distress HEENT: Atraumatic Respiratory: Other (Diminished air entry to bilateral lower lobes) Cardiovascular: Regular rate, Regular rhythm, Normal S1, Normal S2 Abdominal: Normal bowel sounds, Soft, No tenderness Extremities: No cyanosis, No edema Skin: Other (Unable to assess, no assistance to turn patient at this time, patient is in the hallway, details per nursing skin assessment) Neuro: Other (Unable to assess) Psych/Mental Status: Other (Patient unable to answer any questions.) Assessment/Plan ASSESSMENT: [ COPD exacerbation, POA Pulmonary edema, POA NATASHA on CKD, POA Uncontrolled Diabetes mellitius type2, POA Leukocytosis, POA Hypernatremia, POA Atrial fibrillation Hyperlipidemia Dementia Hypothyroidism] PLAN: [ Admit patient to [facility] as inpatient status. Place patient on telemetry monitoring. DuoNebs every 6 hours. Pulmicort twice daily. Supplemental oxygen to maintain O2 saturation greater 92%. Consult patient's manager store, Dr. Tim hair for evaluation and recommendations regarding patient's NATASHA on CKD and electrolyte derangement. For now, start 0.45% NS at 50 mL/HR Monitor intake and output every shift Weight patient daily Avoid nephrotoxic agents when possible Renally dose all medications when possible Monitor patient's labs Check glucometer a.c. and HS Consider starting 1800 ADA diet if patient is able to passed bedside swallow eval by TANK CAR REPAIRER Bedside swallow eval by TANK CAR REPAIRER in a.m. Humulin R sliding scale Check hemoglobin A1c in a.m. Check blood culture, follow up with the results Check urinalysis, follow up with the results Check procalcitonin, follow up with the results reviewed patient's lactic acid, unremarkable Consider restarting home medications once they are reconciled For now, Hydralazine 10 mg IV every 4 hours for systolic blood pressure greater than 160 mmHg Fall precautions Check TSH in a.m. GI prophylaxis, IV Protonix DVT prophylaxis, Beny's and SCDs This document was generated in part using voice recognition software, occasional wrong word or sound alike substitutions may have occurred due to the inherent limitations of voice recognition software. Read the chart carefully and recognize using context, where the substitutions have occurred. Although every effort was made to edit the content, outsole caser and typing errors may occur ATTESTATION BY PHYSICIAN I have seen and examined the patient. I reviewed the documentation, medical decision making, and treatment plan as noted by the mid-level provider above. I agree with the findings and plan of care. MIKE HERRMANN WASTE MANAGEMENT RECYCLING TECHNICIAN Nov 11, 2024 20:11
[2024-11-11] MEDS ORDERED: acetaMINOPHEN 650 MG SUPPOSITORY RC PRN (20:30)
[2024-11-11] MEDS ORDERED: morPHINE 2 MG SYG IVP PRN (20:30)
[2024-11-11] MEDS ORDERED: hydrALAZine 20MG/ML VIAL IV PRN (20:30)
[2024-11-11 21:04] VITALS: PULSE 110; RESP 20; O2SAT 100
[2024-11-11] MEDS: cefTRIAXone 1G VIAL IVPB ONE (21:12)
[2024-11-11] MEDS: INSULIN humuLIN R 100 UNIT/ML 3ML SQ SCH (21:15)
[2024-11-11 23:42] VITALS: PULSE 126; RESP 20; O2SAT 98
[2024-11-11] MEDS: IpraTROPium/alBUTERol SULFATE 3 ML SOLUTION IH SCH (23:42)
[2024-11-12] MEDS: 1/2 NS 1000ML 1,000 ML IV SCH (00:17)
--- NOTE | 2024-11-12 01:03 | NUR ---
ASSUMED CARE AT THIS TIME
[2024-11-12] MEDS: BUDESONIDE 0.5 MG/2 ML INH IH SCH (06:25)
[2024-11-12 06:28] VITALS: PULSE 117; RESP 21; O2SAT 98
--- NOTE | 2024-11-12 07:02 | EKG ---
[facility] Test Date: 2024-11-11 Test Time: 16:08:16 Pat Name: IDANIA GOLD Department: [facility] Room: 225 Gender: M Precipitator: [id number] [phone] [id number] Requested By: ELIJAH FERNANDEZ Order Number: [id number] Reading MD: Kip Leroy Measurements Intervals [place] Rate: 118 P: 0 [place]: 0 QRS: -20 QRSD: 89 T: 117 QT: 361 QTc: 506 Interpretive Statements Atrial fibrillation Nonspecific T abnormalities, lateral leads Prolonged QT interval Compared to ECG 10/19/2024 23:35:07 T-wave abnormality now present Sinus tachycardia no longer present Electronically Signed On 11-13-2024 17:36:06 TERRITORY ACCOUNT REPRESENTATIVE by Kip Leroy Please click the below link to view image of tracing.
[2024-11-12 07:28] LABS: BASOPHILS # (AUTO) 0.07 K/uL (0.00-0.20); BASOPHILS % (AUTO) 0.5 % (0.0-5.0); EOSINOPHILS # (AUTO) 0.54 K/uL (0.00-0.70); EOSINOPHILS % (AUTO) 3.5 % (0.0-8.0); HEMATOCRIT 29.4 % (42-54); IMMATURE GRANULOCYTE ABSOLUTE 0.69 K/uL (0-1); LYMPHOCYTES # (AUTO) 1.2 K/uL (1.0-4.8); LYMPHOCYTES % (AUTO) 7.7 % (21.0-51.0); MEAN CORPUSCULAR HEMOGLOBIN 25.9 pg (27.0-33.0); MEAN CORPUSCULAR HGB CONC 28.6 g/dL (32.0-36.0); MEAN CORPUSCULAR VOLUME 90.7 fL (79-99); MONOCYTES # (AUTO) 0.6 K/uL (0.1-1.0); MONOCYTES % (AUTO) 3.8 % (3.0-13.0); NEUTROPHILS # (AUTO) 12.3 K/uL (1.8-7.7); NUCLEATED RED BLOOD CELLS 0.1 % (0.0-0.19); PLATELET COUNT (AUTO) 253 K/uL (130-400); RED BLOOD CELL COUNT(AUTO) 3.24 MIL/uL (4.50-6.20); RED CELL DISTRIBUTION WIDTH 17.2 % (11.0-15.5); WHITE BLOOD COUNT (AUTO) 15.4 K/uL (4.8-10.8)
[2024-11-12 07:51] LABS: MAGNESIUM 1.9 mg/dL (1.80-2.40); PHOSPHORUS 8.2 mg/dL (2.5-4.9); POTASSIUM 3.5 mmol/L (3.5-5.1); THYROID STIMULATING HORMONE 26.56 uIU/mL (0.36-3.74)
[2024-11-12 08:14] LABS: CREATININE 12.5 mg/dL (0.5-1.3)
[2024-11-12] MEDS ORDERED: 0.9%NACL 1000ML 1,000 ML IV SCH (08:30)
[2024-11-12] MEDS ORDERED: 0.9% NACL 500ML IV.SOLN 500 ML IV ONE (08:30)
[2024-11-12 09:38] LABS: BILIRUBIN,URINE NEGATIVE (NEGATIVE); COLOR,URINE YELLOW (YELLOW); GLUCOSE, URINE (UA) NEGATIVE (NEGATIVE); KETONES,URINE NEGATIVE (NEGATIVE); LEUKOCYTE ESTERASE ,URINE 500 Leu/uL (NEGATIVE); NITRATE,URINE 2+ (NEGATIVE); PH,URINE 5.5 (5.0-8.0); PROTEIN,URINE 30 mg/dL (NEGATIVE); UROBILINOGEN,URINE 0.2 mg/dL (0.2-1.0)
[2024-11-12 09:39] LABS: ADD UA MICROSCOPIC YES; APPEARANCE,URINE CLOUDY (CLEAR)
[2024-11-12 09:40] LABS: CREATININE,URINE RANDOM 87.22 mg/dL (30-135); SODIUM,URINE RANDOM 47 mmol/l (40-220)
[2024-11-12 09:48] LABS: BACTERIA,URINE FEW /HPF (None Seen); WBC CLUMP RARE /HPF (0-1); WBC,URINE TNTC /HPF (0-1); YEAST,URINE BUDDING MANY /HPF (None Seen)
[2024-11-12] MEDS: cefTRIAXone 1G VIAL IVPB SCH (09:55)
[2024-11-12] MEDS: metoPROLOL tartRATE 25 MG TAB PO SCH (09:55)
[2024-11-12] MEDS ORDERED: metoPROLOL tartRATE 1 MG/ML 5ML VIAL IV PRN (10:00)
[2024-11-12] MEDS ORDERED: hydrALAZine 20MG/ML VIAL IV PRN ×2 (10:00→14:30)
[2024-11-12 10:03] LABS: INR 1.16 (0.85-1.15); PROTHROMBIN TIME 12.8 SEC (9.6-11.6)
[2024-11-12 10:09] LABS: % IRON SATURATION 19.3 % (30-44)
[2024-11-12 10:12] LABS: ABG OXYGEN SATURATION 53.4 % (94.0-98.0); BASE EXCESS,VENOUS BLOOD GAS -0.7 (-2.0-3.0); HCO3,VENOUS BLOOD GAS 24.8 (22.0-29.0); PCO2,VENOUS BLOOD GAS 45 (38-54); PH,VENOUS BLOOD GAS 7.362 (7.320-7.430); PO2,VENOUS BLOOD GAS 31.5 mmHg (23.0-48.0); VENT MODE, BG RA (ROOM AIR)
--- NOTE | 2024-11-12 10:15 | NUR ---
DAV PAGED CONSULTS, AWAITING CALL BACKS
[2024-11-12 10:24] LABS: COVID19 (SARS ANTIGEN RAPID) PRESUMPTIVE NEGATIVE (NEGATIVE); INFLUENZA TYPE A Negative For Type A (NEGATIVE); INFLUENZA TYPE B Negative For Type B (NEGATIVE)
--- NOTE | 2024-11-12 10:40 | HMCIMG ---
Exam Type: ABD 1VW Clinical Information: sepsis Comparison: None Findings: Abdomen demonstrates no evidence of pathologic calcification or soft tissue mass. There are no radiopacities to suggest calculous disease. The intestinal gas pattern is within normal limits without evidence of dilatation to suggest obstruction or adynamic ileus. The bony structures are unremarkable. There is residual contrast within bowel. IMPRESSION: Normal abdomen.
--- NOTE | 2024-11-12 10:56 | NUR ---
AWAITING PHARMACY TO DELIVER CARDIRAÚLM GUSTAVO
--- NOTE | 2024-11-12 10:56 | HMCIMG ---
Exam Type: CHEST 1VW Clinical Information: sepsis Comparison: None Findings: Status post median sternotomy. Ill-defined infiltrates of the left lower lobe are seen consistent with pneumonia. . The heart is large in size. The bony and soft tissue structures show no worrisome pathology. IMPRESSION: Findings consistent with pneumonia. Follow-up is advised.
--- NOTE | 2024-11-12 11:01 | NUR ---
SPOKE TO IAN RODRIGUEZ FOR PULMONOLOGY CONSULT, NO NEW ORDERS AT THIS TIME
[2024-11-12] MEDS: DOXYCYCLINE 100MG+NS 250ML 250 ML IV SCH (11:03)
[2024-11-12 11:05] VITALS: PULSE 113; RESP 21
[2024-11-12 11:07] VITALS: PULSE 113; RESP 21; O2SAT 95
--- NOTE | 2024-11-12 11:22 | NUR ---
DCP: RETURN TO [facility] WITHOUT HOSPICE Sw called and spoke to daughter Federico Chance 622 2016. Per daughter, pt has [facility] since 09/23. Pt was sent here 11/10 and returned to [facility] , with [facility]. Daughter revoked to bring back to [facility] and [place] not want hosp[place] services [place]. Daughter states they are working with [facility] for [facility] placement and pt will return at [place]. Daughter gave verbal consent for pt to return when medically cleared. Argelia skinner [facility] made aware Addendum: 11/12/24 at 1134 by RAYRAY GANT Amended: Links added.
--- NOTE | 2024-11-12 12:36 | HMCIMG ---
Exam Type: US RENAL SONOGRAM Clinical Information: renal failure Comparison: None Findings and impression: Right kidney is obscured. Left kidney is normal in size and echogenicity and vascularity. No hydronephrosis.
--- NOTE | 2024-11-12 12:45 | PN ---
[facility] PROGRESS NOTE Date of Service: Nov 12, 2024 Time of Service: 12:39 SUBJECTIVE: 11/12 patient is seen and examined at bedside, case discussed with the RN. No family members at bedside during my visit. BP 109/54, patient is still tachycardic, heart rate between 105-117, atrial fibrillation. Patient is saturating 97% on 3 L via nasal cannula. Blood tests reviewed, CBC with a hem oglobin 8.4, hematocrit 29.4, WBC 15.4, platelet count of 253. CMP with sodium 160, potassium 3.5, BUN of 159, creatinine 2.5. Chest x-ray showing left lung greater than right mid lung pulmonary edema or other space disease, without pneumothorax. REVIEW OF SYSTEMS CONSTITUTIONAL: Denies fevers, chills, or night sweats. No unintentional weight loss reported. NEUROLOGICAL: Denies headache, amaurosis fugax, motor weakness, sensory deficit, vertigo/spinning sensation, gait abnormalities, or tremors. ENT: No hearing loss, otalgia, otorrhea, rhinitis, rhinorrhea, hoarseness, or sore throat. CARDIOVASCULAR: Denies any exertional angina, dyspnea on exertion, orthopnea, paroxysmal nocturnal dyspnea, palpitations, life-threatening arrhythmias, claudication. PULMONARY: Denies any shortness of breath, cough, phlegm/sputum, hemoptysis, pleuritic chest pain. SLEEP: Denies morning headaches, daytime somnolence or napping. Denies difficulty falling asleep, staying asleep, waking from sleep. Denies knowledge of snoring. GASTROINTESTINAL: Denies any type of dysphagia to either liquids or solids. Denies nausea, vomiting, pyrosis, early satiety, abdominal pain, diarrhea, constipation, or changes in stool consistency or caliber. Denies coffee-ground emesis, hematemesis, hematochezia, or melanotic stools. GENITOURINARY: Denies frequency, urgency, nocturia, hematuria or incontinence (Storage/Irritative symptoms.) Low urinary stream, straining to void, urinary intermittency or hesitancy, splitting of the voiding stream, terminal dribbling. ENDOCRINOLOGIC: Denies polyuria, polydipsia, polyphagia or heat/cold intolerances. HEMATOLOGIC: Denies thrombophilia/previous clots, or coagulopathy/bleeding disorders. ONCOLOGIC: Denies personal history of malignancy. DERMATOLOGIC: Denies rashes or pruritus. PSYCHIATRIC: Denies any suicidal or homicidal ideation. Denies hallucinations. PHYSICAL EXAM GENERAL APPEARANCE: The patient comfortably in bed, not verbalizing, withdrawing to painful stimulation, looks very dehydrated. NEUROLOGICAL: Cranial nerves II-XII grossly intact. Motor is 5/5 in bilateral upper and lower extremities proximal to distal. No sensory deficits. HEENT: Face is symmetric. Pupils are equal and reactive. Extraocular movements are intact. NECK: Supple. No JVD. No thyromegaly. No submental, submandibular, pre- /postauricular, occipital or supraclavicular lymphadenopathy. CHEST: Normal chest expansion. No Telemetry. LUNGS: Absence of any rales, rhonchi or any wheezing. CARDIOVASCULAR: Regular. S1 and S2 normal. No appreciable rubs, murmurs or gallops. ABDOMEN: Soft, nontender, and nondistended. There is no rebound, voluntary guarding, or rigidity. : Deferred. No Rivas. EXTREMITIES: Non-edematous and not cyanotic. No clubbing. Good capillary refill. SKIN: No skin breakdown. Vital Signs (last 8hr) Date Time Temp Pulse Resp B/P (MAP) Pulse Ox O2 Delivery O2 Flow Rate FiO2 11/12/24 11:56 98.4 105 18 109/54 97 Nasal Cannula* 3.0 N/A 11/12/24 11:07 113 21 N/Cannula Low lpm 3.0 11/12/24 11:05 113 21 11/12/24 08:00 97.9 109 21 139/49 99 Nasal Cannula* 3 32 11/12/24 06:28 117 21 N/Cannula Low lpm 3.0 11/12/24 06:28 117 21 11/12/24 05:21 115 13 110/35 98 Nasal Cannula* 3 32 LABS: Laboratory: Test 11/12/24 11:42 11/12/24 10:10 11/12/24 09:23 11/12/24 06:57 Range/Units Group A Streptococcus Rapid negative NEGATIVE Blood Gas Specimen Type Venous Arterial Blood Oxygen Saturation 53.4 L 94.0-98.0 % Venous Blood pH 7.362 7.320-7.430 Venous Blood pCO2 at Patient Temp 45 38-54 Venous Blood pO2 at Patient Temp 31.5 23.0-48.0 mmHg Venous Blood HCO3 24.8 22.0-29.0 Venous Blood Base Excess -0.7 -2.0-3.0 Venous Blood Total Hemoglobin 8.8 L 13.5-17.5 Sodium (Blood Gas) 159 *H 136-145 MMOL/L Bedside Potassium (Blood Gas) 3.4 3.4-4.5 MMOL/L Bedside Chloride (Blood Gas) 108 H 98-107 MMOL/L Bedside Glucose (Blood Gas) 218 H 65-95 MG/DL Bedside Ionized Calcium (Blood Gas) 0.79 L 1.15-1.33 MMOL/L Bedside Lactic Acid (Blood Gas) 2.19 H 0.36-0.75 MMOL/L Blood Gas Temperature 37.0 35.5-37.0 CELSIUS Blood Gas Vent Mode RA ROOM AIR FiO2 21.0 % Blood Gas Specimen Comment BRITTANIE MCMANUS Influenza Type A Antigen Negative For Type A NEGATIVE Influenza Type B Antigen Negative For Type B NEGATIVE SARS-CoV-2 Antigen (Rapid) PRESUMPTIVE NEGATIVE NEGATIVE White Blood Count 15.4 H 4.8-10.8 K/uL Red Blood Count 3.24 L 4.50-6.20 MIL/uL Hemoglobin 8.4 L 14.0-18.0 g/dL Hematocrit 29.4 L 42-54 % Mean Corpuscular Volume 90.7 79-99 fL Mean Corpuscular Hemoglobin 25.9 L 27.0-33.0 pg Mean Corpuscular Hemoglobin Concent 28.6 L 32.0-36.0 g/dL Red Cell Distribution Width 17.2 H 11.0-15.5 % Platelet Count 253 130-400 K/uL Mean Platelet Volume 9.3 7.5-10.5 fL Immature Granulocyte % (Auto) 4.5 H 0-1 % Neutrophils (%) (Auto) 80.0 H 40.0-77.0 % Lymphocytes (%) (Auto) 7.7 L 21.0-51.0 % Monocytes (%) (Auto) 3.8 3.0-13.0 % Eosinophils (%) (Auto) 3.5 0.0-8.0 % Basophils (%) (Auto) 0.5 0.0-5.0 % Neutrophils # (Auto) 12.3 H 1.8-7.7 K/uL Lymphocytes # (Auto) 1.2 1.0-4.8 K/uL Monocytes # (Auto) 0.6 0.1-1.0 K/uL Eosinophils # (Auto) 0.54 0.00-0.70 K/uL Basophils # (Auto) 0.07 0.00-0.20 K/uL Absolute Immature Granulocyte (auto 0.69 0-1 K/uL Nucleated Red Blood Cells 0.1 0.0-0.19 % Prothrombin Time 12.8 H 9.6-11.6 SEC Prothromb Time International Ratio 1.16 H 0.85-1.15 Sodium Level 160 *H 136-145 mmol/L Potassium Level 3.5 3.5-5.1 mmol/L Chloride Level 109 101-111 mmol/L Carbon Dioxide Level 31 21-32 mmol/L Blood Urea Nitrogen 159 #*H 7-18 mg/dL Creatinine 12.5 *H 0.5-1.3 mg/dL Glomerular Filtration Rate Calc 4 >90 mL/min Random Glucose 216 H 70-105 mg/dL Total Calcium 7.9 L 8.5-10.1 mg/dL Phosphorus Level 8.2 H 2.5-4.9 mg/dL Magnesium Level 1.90 1.80-2.40 mg/dL Iron Level 24 L 65-175 mcg/dL Total Iron Binding Capacity 124 L 250-450 mcg/dL Percent Iron Saturation 19.3 L 30-44 % Thyroid Stimulating Hormone (TSH) 26.56 #H 0.36-3.74 uIU/mL Test 11/11/24 21:05 11/11/24 17:40 11/11/24 17:00 11/11/24 09:30 Range/Units Whole Blood Glucose 235 H 70-110 MG/DL Arterial Blood pH 7.444 7.350-7.450 Arterial Blood Partial Pressure CO2 44 35-48 mmHg Arterial Blood Partial Pressure O2 93.3 83.0-108.0 mmHg Arterial Blood HCO3 29.1 H 21.0-28.0 mmol/L Arterial Blood Base Excess 4.6 H -2.0-3.0 mmol/L Hemoglobin (Blood Gas) 9.0 L 13.5-17.5 g/dL Blood Gas Flow-by 3.00 0.00-15.00 L/min Lactic Acid Level 1.8 0.8-2.5 mmol/L Total Creatine Kinase 34 21-232 U/L Troponin I High Sensitivity 55.1 4-75 ng/L B-Type Natriuretic Peptide 839 H 0-100 pg/mL Procalcitonin 1.14 H 0.05-0.5 ng/mL Urine Color YELLOW YELLOW Urine Appearance CLOUDY H CLEAR Urine pH 5.5 5.0-8.0 Urine Specific [place] 1.016 1.001-1.031 Urine Protein 30 H NEGATIVE mg/dL Urine Glucose (UA) NEGATIVE NEGATIVE mg/dL Urine Ketones NEGATIVE NEGATIVE mg/dL Urine Occult Blood +- (TRACE) H NEGATIVE Urine Nitrate 2+ H NEGATIVE Urine Bilirubin NEGATIVE NEGATIVE mg/dL Urine Urobilinogen 0.2 0.2-1.0 mg/dL Urine Leukocyte Esterase 500 H NEGATIVE [place]/uL Urine RBC 11-25 H 0-1 /HPF Urine WBC TNTC H 0-1 /HPF Urine WBC Clumps (Auto) RARE 0-1 /HPF Urine Bacteria FEW None Seen /HPF Urine Yeast MANY None Seen /HPF Urine Random Creatinine 87.22 30-135 mg/dL Urine Random Sodium 47 40-220 mmol/l Current Medications Medications (Trade) Dose Ordered Sig/Drew Route PRN Reason Start Time Stop Time Status Last Admin Dose Admin Acetaminophen (TYLenol 650MG SUPPOSITORY) 650 mg Q6H PRN RC MILD PAIN (1-3) 11/11/24 20:30 12/11/24 20:29 Albuterol (DUOneb) 1 UDVIAL [id number] IH 11/12/24 00:00 12/12/24 00:00 11/12/24 11:04 1 UDVIAL Budesonide (Pulmicort 0.5 Mg/2ml) 0.5 mg BIDRESP IH 11/12/24 06:00 12/12/24 05:59 11/12/24 06:25 0.5 MG Ceftriaxone Sodium (ROCEphine 1G INJ) 1 gm Q24H IVPB 11/12/24 10:00 11/22/24 09:59 11/12/24 09:55 1 GM Diltiazem HCl 125 mg/Sodium Chloride 125 ml @ 0 mls/hr PROTOCOL IV 11/12/24 11:00 12/12/24 10:59 Doxycycline Hyclate 250 ml @ 125 mls/hr Q12H IV 11/12/24 11:00 11/22/24 10:59 11/12/24 11:03 125 MLS/HR Hydralazine HCl (APRESOLine 20MG INJ) 5 mg Q6H PRN IV ADMINISTER FOR SBP > 160 11/12/24 10:00 11/12/24 09:50 DC Hydralazine HCl (APRESOLine 20MG INJ) 5 mg Q6H PRN IV For:SBP above 160;DBP above 90 11/12/24 14:30 12/12/24 14:29 Hydralazine HCl (APRESOLine 20MG INJ) 10 mg Q6H PRN IV For:SBP above 160;DBP above 90 11/11/24 20:30 11/12/24 09:44 DC Insulin Human Regular (humuLIN R 100 UNIT/ML 3ML) INSULIN SLIDING SCAL... ACHS SQ 11/11/24 21:00 11/12/24 09:44 DC 11/12/24 09:26 3 UNIT Metoprolol Tartrate (loprESSOR) 5 mg Q6H PRN IV INCREASED HEART RATE 11/12/24 10:00 12/12/24 09:59 Metoprolol Tartrate (loprESSOR) 12.5 mg BID PO 11/12/24 10:00 12/12/24 09:59 11/12/24 09:55 12.5 MG Morphine Sulfate (morPHINE 2MG SYG) 2 mg Q4H PRN IVP SEVERE PAIN (7-10) 11/11/24 20:30 11/12/24 09:44 DC Ondansetron HCl (zoFRAN 4MG INJ) 4 mg Q6H PRN IV NAUSEA/VOMITING 11/11/24 20:30 12/11/24 20:29 Sodium Chloride 1,000 ml @ 50 mls/hr Q20H IV 11/11/24 20:30 12/11/24 20:29 11/12/24 00:17 50 MLS/HR Sodium Chloride 1,000 ml @ 120 mls/hr Q8H20M IV 11/12/24 08:30 11/12/24 08:27 DC DIAGNOSTICS / RADIOLOGY: [ ] FRONTAL CHEST RADIOGRAPH INDICATION: hypoxia COMPARISON: 11/10/2024 FINDINGS/IMPRESSION: drum barker operator leads overlie the field of view. Median sternotomy wires are in appropriate alignment. Patient positioning is not optimal, but the radiologic examination is still believed to be of reasonable diagnostic quality. Stable heart size without pulmonary vascular congestion. Unchanged left lung greater than right midlung pulmonary edema or other airspace disease, without pneumothorax. ASSESSMENT: Acute COPD exacerbation, POA Acute Pulmonary edema, POA NATASHA on CKD, POA Possible sepsis due to pneumonitis, POA Atrial fibrillation with a RVR Uncontrolled Diabetes mellitius type2, POA Leukocytosis, POA Hypernatremia, POA Hyperlipidemia Dementia Hypothyroidism Anemia of chronic disease can not exclude acute GI bleed PLAN: Patient to be admitted to the PCU Continue the patient on custom tailor apprentice Start the patient on Cardizem drip Echocardiogram to evaluate ejection fraction Cardiology consultation requested, follow input and recommendation Continue the patient on IV fluids, monitor renal function in a.m. Nephrology consultation requested, follow input and recommendation Venous blood gas requested to assess metabolic status Renal ultrasound to rule out obstructive uropathy Follow septic workup, start the patient on broad-spectrum IV antibiotics. Serology tests requested Infectious disease consulted, we will follow input and recommendation Pulmonary consultation requested, follow input and recommendation Follow stool occult blood, if positive we will request GI consultation Serial CBC transfuse as needed Follow iron level studies NEURO: Minimize central acting medications as possible. Fall Precautions. Well lighted room through the day and minimize interruptions through the night to prevent acute delirium. PULMONARY: Supplemental 02 as needed BiPAP as necessary, for respiratory distress Titrate Fio2 to keep Spo2 > or = 90% DuoNebs and CPT as needed IS hourly while awake for pulmonary hygiene prn Out of bed to chair as tolerated Maintain aspiration precautions at all times CARDIOVASCULAR: Follow hemodynamics. Vital signs per facility protocol GI & NUTRITION: Continue nutritional support Aspirations precautions Prokinetic agents and laxatives as needed KIDNEYS & ELECTROLYTES: Strict monitoring of intake and output Daily weights Avoid nephrotoxic agents Monitor electrolytes and replace as needed Goal urine output of 30mL/hr or 0.5mL/kg/hr Medications to be dosed according to renal function. Avoid contrast if possible ENDOCRINE: Maintain blood glucose between 100-180 at all times. Insulin sliding scale for blood glucose management Hypoglycemia and hyperglycemia protocol in place INFECTIOUS DISEASE: Trend temperature, WBC and procalcitonin level Follow cultures, deescalate antibiotics as soon as possible. Panculture if new onset fever HEMATOLOGY & COAGULATION: Monitor H&H. Keep Hgb > 7 Transfuse 1 unit of PRBC for Hgb < 7 Transfuse 1 pack of platelets of platelets < 20, 000 Watch for any signs and symptoms of bleeding SKIN: Pressure ulcer prevention per facility protocol Specialty mattress as needed ORTHO/REHAB Continue PT/OT PRN: MEDICATIONS Tylenol 650 mg po every 4 hrs for fever zofran 4 mg IV every 6 hrs for n/v Hydralazine 5 mg IV every 4 hrs systolic pressure > 160 bowel regiment: lactulose 20 gm PO BID PRN constipation Supportive measures: Continue GI and DVT prophylaxis Disposition: Admit the patient to the PCU. All questions answered time spent: > 35 min NAHID RICCI MD Nov 12, 2024 12:45
--- NOTE | 2024-11-12 12:47 | NUR ---
DR KIRK AT BEDSIDE CARDIOLOGY CONSULT
[2024-11-12] MEDS ORDERED: IRON sUCROse COMPLEX 100 MG/5 ML VIAL IV SCH (13:00)
--- NOTE | 2024-11-12 13:00 | NUR ---
CC SPEECH NOTE: MICA SIZER coordinated with nurse Dowling. Nurse recommended to hold off on bedside due to emesis. Will complete once patient is stable. All questions answered. Addendum: 11/13/24 at 1708 by GALA LEONARD Amended: Links added.
[2024-11-12 13:04] LABS: HEMATOCRIT 30.3 % (42-54); MEAN CORPUSCULAR HEMOGLOBIN 26.9 pg (27.0-33.0); MEAN CORPUSCULAR HGB CONC 29.7 g/dL (32.0-36.0); MEAN CORPUSCULAR VOLUME 90.4 fL (79-99); NUCLEATED RED BLOOD CELLS 0.1 % (0.0-0.19); RED BLOOD CELL COUNT(AUTO) 3.35 MIL/uL (4.50-6.20); RED CELL DISTRIBUTION WIDTH 17.4 % (11.0-15.5); WHITE BLOOD COUNT (AUTO) 17.8 K/uL (4.8-10.8)
--- NOTE | 2024-11-12 13:04 | CONS ---
[facility] CONSULTATION NOTE Date Patient Seen: Nov 12, 2024 Time of Visit: 13:04 Supervising Physician: [ ] Reason for Consultation: Primary Care Physician: Dr. Ware Outpatient Specialists: [ ] Inpatient Consults: Pulmonary, cardiology, Nephrology PROBLEM LIST: Acute respiratory failure currently requiring nasal cannula supplementation. Hospital-acquired pneumonia. Acute urinary tract infection, with the presence of indwelling catheter. Acute sepsis and shock suspect from pulmonary source versus urinary tract source. Acute hypernatremia. Dehydration. Atrial fibrillation with RVR, hypercoagulable state, not on anticoagulation due to recurrent anemia CKD stage V Hypothyroidism, TSH is elevated at 26.56 Iron deficiency Anemia Hypertension Dyslipidemia Diabetes mellitus type 2 History of SVT with successful ablation CAD s/p remote CABG Critical aortic stenosis s/p bioprosthetic valve replacement 06/2015 Dementia HPI: This is a 88-year-old male patient who is a poor historian. He is coming in from the local long term. Based on the emergency department documentation, the patient was admitted at the custodial facility under hospice care. He unfortunately, developed worsening respiratory distress and family members decided to recent hospice care and transfer the patient to the emergency department for further evaluation and management of his condition. The patient does have past medical history significant for HTN, DLD, DM type II, SVT with successful ablation, CAD s/p CABG, critical aortic stenosis s/p bioprosthetic valve replacement, paroxysmal atrial fibrillation with hypercoagulable state not on anticoagulation due to recurrent anemia, CKD stage V, hypothyroidism, and dementia. The patient was recently hospitalized for a left foot osteomyelitis prior to being discharged to the custodial facility. Upon presentation to the emergency department, the entry vital signs showed tachycardia, tachypnea and hypotensive changes as well as requirement for oxygen supplementation via nasal cannula. Laboratory data of significance showed elevated WBC initially at 15.1. H and H and platelet count has maintained stable. Chemistry panel did show hypernatremia currently sodium of 160 and elevated renal parameters with a BUN of 159, creatinine of 12.5 with a GFR of four. The random glucose was 216. TSH of 26.56. The patient had a PT of 12.8, INR of 1.16. Urinalysis did show suspicion for urinary tract infection. Of note, the patient has a Rivas catheter in place and urinary consistency was cloudy yellow. Urine WBC was too numerous to count, many budding yeast and leukocyte esterase was elevated with 2+ nitrates. Influenza capital A, B, SARS-CoV-2 and group a strep was negative. Blood and urine cultures have been ordered. Initial chest x-ray showed did sh ow concern for pneumonic infiltrates and early pulmonary congestion. Abdomen x- ray showed presence of residual contrast and there was increase colonic stool burden. Based on the finding, the patient was admitted. Pulmonology was consulted due to the underlying pneumonia and need for oxygen supplementation currently on nasal cannula. During my visit, the patient was in the emergency department awaiting bed assignment. During the ER stay, the patient developed AFib and was started on Cardizem drip. No new complaint. PAST MEDICAL HX: see above PAST SURGICAL HX: noncontributory SOCIAL HISTORY: No tobacco, ETOH, or illicit drug use Coded Allergies: No Known Allergies (Unverified Allergy, Unknown, 06/20/15) REVIEW OF SYSTEMS: 12 point ROS reviewed with patient. Pertinent positives mentioned above. Otherwise negative. PHYSICAL EXAM: GENERAL: alert, weak, awake oriented x self HEENT: EOMI, Sclera non icteric, moist mucosa NECK: Supple, no JVD, trachea midline LUNGS: Clear breath sounds bilaterally. No wheezes HEART: Regular rate and rhythm. Normal S1 and S2, without murmurs ABD: Abdomen soft, nontender. Bowel sounds present EXT: No clubbing cyanosis or edema NEURO: Alert and oriented to person, follows commands Vital Signs (last 8hr) Date Time Temp Pulse Resp B/P (MAP) Pulse Ox O2 Delivery O2 Flow Rate FiO2 11/12/24 11:56 98.4 105 18 109/54 97 Nasal Cannula* 3.0 N/A 11/12/24 11:07 113 21 N/Cannula Low lpm 3.0 11/12/24 11:05 113 21 11/12/24 08:00 97.9 109 21 139/49 99 Nasal Cannula* 3 32 11/12/24 06:28 117 21 N/Cannula Low lpm 3.0 11/12/24 06:28 117 21 11/12/24 05:21 115 13 110/35 98 Nasal Cannula* 3 32 LABS: Hematology Labs: Test 11/12/24 06:57 Range/Units White Blood Count 15.4 H 4.8-10.8 K/uL Red Blood Count 3.24 L 4.50-6.20 MIL/uL Hemoglobin 8.4 L 14.0-18.0 g/dL Hematocrit 29.4 L 42-54 % Mean Corpuscular Volume 90.7 79-99 fL Mean Corpuscular Hemoglobin 25.9 L 27.0-33.0 pg Mean Corpuscular Hemoglobin Concent 28.6 L 32.0-36.0 g/dL Red Cell Distribution Width 17.2 H 11.0-15.5 % Platelet Count 253 130-400 K/uL Mean Platelet Volume 9.3 7.5-10.5 fL Immature Granulocyte % (Auto) 4.5 H 0-1 % Neutrophils (%) (Auto) 80.0 H 40.0-77.0 % Lymphocytes (%) (Auto) 7.7 L 21.0-51.0 % Monocytes (%) (Auto) 3.8 3.0-13.0 % Eosinophils (%) (Auto) 3.5 0.0-8.0 % Basophils (%) (Auto) 0.5 0.0-5.0 % Neutrophils # (Auto) 12.3 H 1.8-7.7 K/uL Lymphocytes # (Auto) 1.2 1.0-4.8 K/uL Monocytes # (Auto) 0.6 0.1-1.0 K/uL Eosinophils # (Auto) 0.54 0.00-0.70 K/uL Basophils # (Auto) 0.07 0.00-0.20 K/uL Absolute Immature Granulocyte (auto 0.69 0-1 K/uL Nucleated Red Blood Cells 0.1 0.0-0.19 % Chemistry Labs: Test 11/12/24 06:57 11/11/24 21:05 11/11/24 17:00 Range/Units Sodium Level 160 *H 136-145 mmol/L Potassium Level 3.5 3.5-5.1 mmol/L Chloride Level 109 101-111 mmol/L Carbon Dioxide Level 31 21-32 mmol/L Blood Urea Nitrogen 159 #*H 7-18 mg/dL Creatinine 12.5 *H 0.5-1.3 mg/dL Glomerular Filtration Rate Calc 4 >90 mL/min Random Glucose 216 H 70-105 mg/dL Total Calcium 7.9 L 8.5-10.1 mg/dL Phosphorus Level 8.2 H 2.5-4.9 mg/dL Magnesium Level 1.90 1.80-2.40 mg/dL Iron Level 24 L 65-175 mcg/dL Total Iron Binding Capacity 124 L 250-450 mcg/dL Percent Iron Saturation 19.3 L 30-44 % Thyroid Stimulating Hormone (TSH) 26.56 #H 0.36-3.74 uIU/mL Whole Blood Glucose 235 H 70-110 MG/DL Lactic Acid Level 1.8 0.8-2.5 mmol/L Total Creatine Kinase 34 21-232 U/L Troponin I High Sensitivity 55.1 4-75 ng/L B-Type Natriuretic Peptide 839 H 0-100 pg/mL Procalcitonin 1.14 H 0.05-0.5 ng/mL Coagulation Labs: Test 11/12/24 06:57 Range/Units Prothrombin Time 12.8 H 9.6-11.6 SEC Prothromb Time International Ratio 1.16 H 0.85-1.15 DIAGNOSTICS / RADIOLOGY RESULTS: [ ] PLAN During my visit, the patient remained in the emergency department awaiting bed assignment. He was generally confused and was not able to participate in in his bedside assessment. There was no family members present at the bedside during my visit. The patient will continue on oxygen supplementation via nasal cannula and we will adjust as necessary. Cardiac-kowalski, he is hemodynamically stable and was started on Cardizem due to the recent AFib RVR event. Currently, the patient will remain NPO. Bedside swallow exam was ordered and we will possibly require an MBSS. The patient will remain on IV half NS and we will follow the sodium trend. The patient initially received antibiotic coverage with Rocephin and doxycycline. Hospitalist team brought in covered with IV Merrem. We will continue this regimen for now and we will follow the culture reports. We will monitor the patient's progress and response to management. We will repeat surveillance labs in the morning. We will continue to provide general supportive care, GI and DVT prophylaxis. Appreciate the opportunity given to participate in patient care. Further orders per attending MD and hospital course. NEURO: Minimize central acting medications as possible. Maintain fall precautions, adequate lighting during the day PULMONARY: Supplemental 02 as needed. Maintain aspiration precautions at all times CARDIOVASCULAR: Follow hemodynamics. Vital signs per facility protocol GI & NUTRITION: Continue with nutritional support. Continue stool softeners and laxatives as needed. KIDNEYS & ELECTROLYTES: Strict monitoring of intake, output and overall fluid balance. Avoid nephrotoxic medications to the extent possible. Medications to be dosed according to renal function. Monitor electrolytes and replace as needed ENDOCRINE: Maintain blood glucose between 100-180 at all times. Hypoglycemia protocol in place INFECTIOUS DISEASE: Trend temperature, WBC and procalcitonin level Follow cultures, deescalate antibiotics as soon as possible. Panculture if new onset fever ONCOLOGY/HEMATOLOGY/COAGULATION: Monitor for s/s of bleeding Monitor hemoglobin, coagulation studies as needed SKIN: Pressure ulcer prevention per facility protocol Specialty mattress ORTHO/REHAB: Continue PT/OT Prophylaxis: Continue GI and DVT prophylaxis Code Status: Full Resuscitation Disposition: TBD Other: Total patient care time exceeds 35 minutes excluding all procedures. TED SOSA NP Nov 12, 2024 13:04
--- NOTE | 2024-11-12 13:13 | NUR ---
CARDIZEM STARTED AT 5 MCG/HR AND GRADUALLY INCREASED Q 15 MINUTES TO 9 MCG. HR CAME FROM 120'S TO HIGH 90'S
[2024-11-12 13:17] LABS: ALBUMIN 1.9 g/dL (3.5-5.0); BILIRUBIN,TOTAL 0.3 mg/dL (0.2-1.0); MAGNESIUM 1.9 mg/dL (1.80-2.40); POTASSIUM 3.5 mmol/L (3.5-5.1); TOTAL PROTEIN, SERUM 7.6 g/dL (6.0-8.3)
[2024-11-12 13:20] LABS: CREATININE 12.5 mg/dL (0.5-1.3)
--- NOTE | 2024-11-12 14:29 | NUR ---
NOTIFIED DR. RICCI PT HAS PENA PLACED BY DR. PECK IN SEPTEMBER AFTER HAVING PENILE SURGERY, DAUGHTER STATES PENIS WAS REMOVED. DR. RICCI STATES NOT TO CHANGE PENA AND THAT HE WILL COME TO ASSESS THE SITUATION
--- NOTE | 2024-11-12 14:33 | NUR ---
[facility]POFER NOT AVAILABLE IN [place], HÉCTORIED [facility] IN PHARMACY, STATES WILL FIX PROBLEM
[2024-11-12] MEDS: MEROPENEM 500MG 500 MG VIAL IV SCH (14:53)
--- NOTE | 2024-11-12 15:04 | CONS ---
NEPHROLOGY CONSULTATION NOTE Date/Time Patient Seen: Nov 12, 2024 1415 Reason for Consultation: Shortness of breath, renal failure HISTORY OF PRESENT ILLNESS: This is an 88-year-old male with a past medical history of atrial fibrillation on chronic anticoagulation, coronary artery disease, aortic stenosis, diabetes mellitus type 2, COPD, hyperlipidemia, chronic kidney disease, dementia, hypothyroidism, history of osteomyelitis and history of ulcers on his heels and midfoot. Patient was discharged to a local [facility] facility on 10/24/2024 under hospice care. Family decided to revoke hospice due to patient's declining condition. He was noted with elevated BUN/creatinine, hypernatremia. We has been consulted for renal failure. Renal function remains elevated Sodium today was 161. Renal ultrasound showed obscured right kidney. Left kidney is normal in size and echogenicity and vascularity. No hydronephrosis Rivas catheter in place. Chest x-ray showed findings consistent with pneumonia He has been started on antibiotics. He was seen in the emergency room, in no acute distress Family at the bedside Condition is critical and guarded REVIEW OF SYSTEMS: Unable to obtain due to patient's status PAST MEDICAL HISTORY: Atrial fibrillation on chronic anticoagulation, coronary artery disease, aortic stenosis, diabetes mellitus type 2, COPD, hyperlipidemia, chronic kidney d isease, dementia, hypothyroidism, history of osteomyelitis and history of ulcers on his heels and midfoot. PAST SURGICAL HISTORY: CABG, heart catheterization, circumcision, aortic valve replacement PAST SOCIAL HISTORY: Denies use of alcohol, tobacco or illicit drugs FAMILY HISTORY: Noncontributory PHYSICAL EXAM: GENERAL: Lethargic No acute distress. Well-nourished. EYES: EOMI. Anicteric. HENT: Moist mucous membranes. No scleral icterus. No cervical lymphadenopathy. LUNGS: Clear to auscultation bilaterally. No accessory muscle use. CARDIOVASCULAR: Regular rate and rhythm. No murmur. No JVD. ABDOMEN: Soft, non-tender and non-distended. No palpable masses. EXTREMITIES: No edema. Non-tender. SKIN: No rashes or lesions. Warm. NEUROLOGIC: No focal neurological deficits. CN II-XII grossly intact, but not individually tested. PSYCHIATRIC: Cooperative. Appropriate mood and affect. MEDICATIONS: [ ] Current Medications Medications (Trade) Dose Ordered Sig/Drew Route PRN Reason Start Time Stop Time Status Last Admin Dose Admin Acetaminophen (TYLenol 650MG SUPPOSITORY) 650 mg Q6H PRN RC MILD PAIN (1-3) 11/11/24 20:30 12/11/24 20:29 Albuterol (DUOneb) 1 UDVIAL [id number] IH 11/12/24 00:00 12/12/24 00:00 11/12/24 11:04 1 UDVIAL Budesonide (Pulmicort 0.5 Mg/2ml) 0.5 mg BIDRESP IH 11/12/24 06:00 12/12/24 05:59 11/12/24 06:25 0.5 MG Ceftriaxone Sodium (ROCEphine 1G INJ) 1 gm Q24H IVPB 11/12/24 10:00 11/12/24 14:30 DC 11/12/24 09:55 1 GM Diltiazem HCl 125 mg/Sodium Chloride 125 ml @ 0 mls/hr PROTOCOL IV 11/12/24 11:00 12/12/24 10:59 Doxycycline Hyclate 250 ml @ 125 mls/hr Q12H IV 11/12/24 11:00 11/12/24 14:31 DC 11/12/24 11:03 125 MLS/HR Hydralazine HCl (APRESOLine 20MG INJ) 5 mg Q6H PRN IV ADMINISTER FOR SBP > 160 11/12/24 10:00 11/12/24 09:50 DC Hydralazine HCl (APRESOLine 20MG INJ) 5 mg Q6H PRN IV For:SBP above 160;DBP above 90 11/12/24 14:30 12/12/24 14:29 Hydralazine HCl (APRESOLine 20MG INJ) 10 mg Q6H PRN IV For:SBP above 160;DBP above 90 11/11/24 20:30 11/12/24 09:44 DC Insulin Human Regular (humuLIN R 100 UNIT/ML 3ML) INSULIN SLIDING SCAL... ACHS SQ 11/11/24 21:00 11/12/24 09:44 DC 11/12/24 09:26 3 UNIT Insulin Human Regular (humuLIN R 100 UNIT/ML 3ML) INSULIN SLIDING SCAL... ACHS SQ 11/12/24 16:30 12/12/24 16:29 Iron Sucrose (VenoFER) 100 mg DAILY IV 11/12/24 13:00 11/12/24 14:07 DC Iron Sucrose (VenoFER) 100 mg DAILY IV 11/12/24 14:30 12/12/24 14:29 Meropenem (Merrem 500mg) 500 mg Q12H9 IV 11/12/24 14:30 11/22/24 14:29 Metoprolol Tartrate (loprESSOR) 5 mg Q6H PRN IV INCREASED HEART RATE 11/12/24 10:00 12/12/24 09:59 Metoprolol Tartrate (loprESSOR) 12.5 mg BID PO 11/12/24 10:00 12/12/24 09:59 11/12/24 09:55 12.5 MG Morphine Sulfate (morPHINE 2MG SYG) 2 mg Q4H PRN IVP SEVERE PAIN (7-10) 11/11/24 20:30 11/12/24 09:44 DC Ondansetron HCl (zoFRAN 4MG INJ) 4 mg Q6H PRN IV NAUSEA/VOMITING 11/11/24 20:30 12/11/24 20:29 Sodium Chloride 1,000 ml @ 50 mls/hr Q20H IV 11/11/24 20:30 12/11/24 20:29 11/12/24 00:17 50 MLS/HR Sodium Chloride 1,000 ml @ 120 mls/hr Q8H20M IV 11/12/24 08:30 11/12/24 08:27 DC Thiamine HCl (Vitamin B-1) 100 mg DAILY IVP 11/13/24 09:00 12/13/24 08:59 Vital Signs (last 8hr) Date Time Temp Pulse Resp B/P (MAP) Pulse Ox O2 Delivery O2 Flow Rate FiO2 11/12/24 13:13 99 20 129/39 100 Nasal Cannula* 3.0 N/A 11/12/24 11:56 98.4 105 18 109/54 97 Nasal Cannula* 3.0 N/A 11/12/24 11:07 113 21 N/Cannula Low lpm 3.0 11/12/24 11:05 113 21 11/12/24 08:00 97.9 109 21 139/49 99 Nasal Cannula* 3 32 DIAGNOSTICS / RADIOLOGY: REASON: renal failure ORDERING PHYSICIAN: NAHID RICCI MD PROCEDURE: RENAL - US RENAL SONOGRAM Exam Type: US RENAL SONOGRAM Clinical Information: renal failure Comparison: None Findings and impression: Right kidney is obscured. Left kidney is normal in size and echogenicity and vascularity. No hydronephrosis. DICTATED BY: HENRY FRANKS MD DATE: 11/12/24 1233 REASON: sepsis ORDERING PHYSICIAN: NAHID RICCI MD PROCEDURE: CXR1VW - CHEST 1VW Exam Type: CHEST 1VW Clinical Information: sepsis Comparison: None Findings: Status post median sternotomy. Ill-defined infiltrates of the left lower lobe are seen consistent with pneumonia. . The heart is large in size. The bony and soft tissue structures show no worrisome pathology. IMPRESSION: Findings consistent with pneumonia. Follow-up is advised. DICTATED BY: HENRY FRANKS MD DATE: 11/12/24 1052 REASON: sepsis ORDERING PHYSICIAN: NAHID RICCI MD PROCEDURE: ABD 1VW - ABD 1VW Exam Type: ABD 1VW Clinical Information: sepsis Comparison: None Findings: Abdomen demonstrates no evidence of pathologic calcification or soft tissue mass. There are no radiopacities to suggest calculous disease. The intestinal gas pattern is within normal limits without evidence of dilatation to suggest obstruction or adynamic ileus. The bony structures are unremarkable. There is residual contrast within bowel. IMPRESSION: Normal abdomen. DICTATED BY: HENRY FRANKS MD DATE: 11/12/24 1036 REASON: hypoxia ORDERING PHYSICIAN: ELIJAH FERNANDEZ DO PROCEDURE: CXR1VW - CHEST 1VW FRONTAL CHEST RADIOGRAPH INDICATION: hypoxia COMPARISON: 11/10/2024 FINDINGS/IMPRESSION: monitor tech leads overlie the field of view. Median sternotomy wires are in appropriate alignment. Patient positioning is not optimal, but the radiologic examination is still believed to be of reasonable diagnostic quality. Stable heart size without pulmonary vascular congestion. Unchanged left lung greater than right midlung pulmonary edema or other airspace disease, without pneumothorax. DICTATED BY: DARLENE DEAN MD DATE: 11/11/24 1723 LABORATORY: [ ] Hematology Labs: Test 11/12/24 12:56 11/12/24 06:57 Range/Units White Blood Count 17.8 H 4.8-10.8 K/uL Red Blood Count 3.35 L 4.50-6.20 MIL/uL Hemoglobin 9.0 L 14.0-18.0 g/dL Hematocrit 30.3 L 42-54 % Mean Corpuscular Volume 90.4 79-99 fL Mean Corpuscular Hemoglobin 26.9 L 27.0-33.0 pg Mean Corpuscular Hemoglobin Concent 29.7 L 32.0-36.0 g/dL Red Cell Distribution Width 17.4 H 11.0-15.5 % Platelet Count 250 130-400 K/uL Mean Platelet Volume 9.0 7.5-10.5 fL Nucleated Red Blood Cells 0.1 0.0-0.19 % Immature Granulocyte % (Auto) 4.5 H 0-1 % Neutrophils (%) (Auto) 80.0 H 40.0-77.0 % Lymphocytes (%) (Auto) 7.7 L 21.0-51.0 % Monocytes (%) (Auto) 3.8 3.0-13.0 % Eosinophils (%) (Auto) 3.5 0.0-8.0 % Basophils (%) (Auto) 0.5 0.0-5.0 % Neutrophils # (Auto) 12.3 H 1.8-7.7 K/uL Lymphocytes # (Auto) 1.2 1.0-4.8 K/uL Monocytes # (Auto) 0.6 0.1-1.0 K/uL Eosinophils # (Auto) 0.54 0.00-0.70 K/uL Basophils # (Auto) 0.07 0.00-0.20 K/uL Absolute Immature Granulocyte (auto 0.69 0-1 K/uL Chemistry Labs: Test 11/12/24 12:56 11/12/24 06:57 11/11/24 21:05 11/11/24 17:00 Range/Units Sodium Level 161 *H 136-145 mmol/L Potassium Level 3.5 3.5-5.1 mmol/L Chloride Level 111 101-111 mmol/L Carbon Dioxide Level 33 H 21-32 mmol/L Blood Urea Nitrogen 163 *H 7-18 mg/dL Creatinine 12.5 *H 0.5-1.3 mg/dL Glomerular Filtration Rate Calc 4 >90 mL/min Random Glucose 168 H 70-105 mg/dL Total Calcium 8.0 L 8.5-10.1 mg/dL Magnesium Level 1.90 1.80-2.40 mg/dL Total Bilirubin 0.3 0.2-1.0 mg/dL Aspartate Amino Transf (AST/SGOT) 30 10-37 U/L Alanine Aminotransferase (ALT/SGPT) 8 L 12-78 U/L Alkaline Phosphatase 86 50-136 U/L Total Protein 7.6 6.0-8.3 g/dL Albumin 1.9 L 3.5-5.0 g/dL Phosphorus Level 8.2 H 2.5-4.9 mg/dL Iron Level 24 L 65-175 mcg/dL Total Iron Binding Capacity 124 L 250-450 mcg/dL Percent Iron Saturation 19.3 L 30-44 % Thyroid Stimulating Hormone (TSH) 26.56 #H 0.36-3.74 uIU/mL Whole Blood Glucose 235 H 70-110 MG/DL Lactic Acid Level 1.8 0.8-2.5 mmol/L Total Creatine Kinase 34 21-232 U/L Troponin I High Sensitivity 55.1 4-75 ng/L B-Type Natriuretic Peptide 839 H 0-100 pg/mL Procalcitonin 1.14 H 0.05-0.5 ng/mL Coagulation Labs: Test 11/12/24 06:57 Range/Units Prothrombin Time 12.8 H 9.6-11.6 SEC Prothromb Time International Ratio 1.16 H 0.85-1.15 ASSESSMENT: Hyponatremia Acute renal failure COPD exacerbation Pulmonary edema Uncontrolled diabetes mellitus type 2 Leukocytosis Atrial fibrillation Coronary artery disease Hypothyroidism Dementia PLAN: Labs, diagnostic, radiologic exams reviewed and interpreted by myself and supervising physician. We have reviewed external records in detail Recommend speech evaluation for possible aspiration Start thiamine 100 mg IV daily Recommend urology follow up for Rivas catheter management There is no need for emergent renal replacement therapy at this time Continue with D5W for hypernatremia We will continue to monitor the patient closely Require close monitoring of renal function and electrolytes Order CBC, CMP, and electrolytes in am Continue with renally dose antibiotics as per ID BiPAP as necessary, for respiratory distress Monitor blood pressure adjust medication doses as needed Continue with the renally dose antibiotic Avoid hypotensive episodes May use Dilaudid 0.5 mg IV every 6 hours as needed for severe pain Monitor blood sugars Strict intake, output, and daily weight should be monitored Please renally adjust medications Avoid nephrotoxic and nonsteroidal drugs Avoid contrast if possible Will continue to monitor renal function, anemia, electrolytes Treatment plan discussed with patient Questions were answered We have discussed with the other team physicians in detail about the care plan We will continue to monitor the patient closely Thank you for allowing us to participate in the care of this patient ATTESTATION BY PHYSICIAN I have seen and examined the patient. I reviewed the documentation, medical decision making, and treatment plan as noted by the mid-level provider above. I agree with the findings and plan of care. DAXA NARVAEZ MD, [facility] Nov 12, 2024 15:04
--- NOTE | 2024-11-12 15:09 | HMCSR ---
APPROVED REPORT EXAM: Two-dimensional and M-mode echocardiogram with Doppler and color Doppler. INDICATION ICD: Atrial fibrillation 2D Dimensions RVDd3.7 cmLVEF(%)51.9 (>50%)LVED Vol(simp.)53.9 mL IVSd0.8 (0.7-1.1cm)FS(%)27 %LVES Vol(simp.)21.9 mL LVDd4.9 (3.8-5.6cm)LA (2D)4.4 (1.6-4.0cm)LVEF(%, simp.)59 % PWd0.9 (0.7-1.1cm)Ao Root(2D)3.4 (2.0-3.7cm)LA ESV INDEX (4CH)22.40 mL/m2 IVSs1.0 cmLVOT diam2.1 (1.8-2.4cm)LA ESV INDEX (2CH)33.60 mL/m2 LVDs3.6 (2.5-4.0cm) PWs1.1 cm Aortic Valve AoV Vmax3.0 m/Keith Peak GR38.0 mmHgLVOT VTI0.11 m AoV VTI0.6 mAo Mean GR20.0 mmHgAVA (VTI) 0.6 cm2 HUGH (VMAX)0.7 cm2 Mitral Valve MV E Yffx244.6 cm/sDECEL [id number] msMV Mean GR6 mmHg MV A Lbyd730.8 cm/sMVA (VTI)1.0 cm2 E/A ratio1.1 MR Max PG74 mmHg Tricuspid Valve RAP (EST) 8 mmHgRVSP8.0 mmHg Left Ventricle The left ventricle is normal size. There is normal left ventricular wall thickness. The LVEF is 55-60 %. The LV diastolic function was unable to be assessed. E/A flow is fused. Right Ventricle The right ventricle is normal size. The right ventricular systolic function is reduced. Atria The left atrium size is normal. The right atrium size is normal. Aortic Valve Prosthetic aortic valve is present. No paravalvular/perivalvular leak noted. No aortic regurgitation is present. AV Dimensionless Index is 0.18 cm Prosthetic aortic valve gradients are elevated maximum pressure gradient of 38 mmHg and mean pressure gradient of 20 mmHg. PV 3.1 m/s. Abnormal DVI 0.18 cm . Mitral Valve The mitral valve is thickened. There is trace of mitral valve regurgitation noted. There is moderate mitral valve stenosis with a mean gradient of 6mmHg. Tricuspid Valve The tricuspid valve is normal in structure. There is no tricuspid valve regurgitation noted. Pulmonic Valve The pulmonary valve is normal in structure. There is no pulmonic valvular regurgitation. Great Vessels The aortic root is normal in size. IVC is not visualized. Pericardium There is no pericardial effusion. Conclusion The left ventricle is normal size. The LVEF is 55-60%. The LV diastolic function was unable to be assessed. E/A flow is fused. The right ventricle is normal size. The right ventricular systolic function is reduced. The left atrium size is normal. The right atrium size is normal. Prosthetic aortic valve is present. No paravalvular/perivalvular leak noted. Prosthetic aortic valve gradients are elevated maximum pressure gradient of 38 mmHg and mean pressure gradient of 20 mmHg. PV 3.1 m/s. Abnormal DVI 0.18 cm. The mitral valve is thickened. There is moderate mitral valve stenosis with a mean gradient of 6mmHg. There is no pericardial effusion.
--- NOTE | 2024-11-12 15:21 | NUR ---
CALLED PHARMACY AND NOTIFIED [facility] THAT VENOFER IS STILL NOT AVAILABLE IN [place], STATES WILL HAVE TECHS [place]
--- NOTE | 2024-11-12 15:27 | CONS ---
[facility] CARDIOLOGY CONSULTATION REPORT Date Patient Seen: Nov 12, 2024 Requesting Physician: Tonio Smith MD Reason for Consultation: Atrial fibrillation History of Present Illness: This is an 88-year-old male from [facility] who was brought in to the ED for hypoxia. 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 He was recently hospitalized 10/19- for left foot osteomyelitis, UTI, acute renal failure, and failure to thrive. He then had an ED visit on 11/10/2024 for UTI and leukocytosis. Cardiology has been consulted for atrial fibrillation. The patient is lethargic, noncommunicative, and bed-bound. HPI has been obtained from medical and clinic records. Bedside telemetry demonstrated atrial fibrillation with heart rates in the 100-120s. The patient was started on diltiazem drip at 5 mg/hr. Hospice was rescinded. WBC of 15.4, Hgb 8.4, Hct 29.4, BUN 159, creatinine 12.5, GFR 4, BNP 839, Troponin 55.1, procalcitonin is elevated at 1.14, TSH is elevated at 26.56. Chest x-ray demonstrated pneumonia. 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 Habits: The patient does not consume alcohol, tobacco, or illicit drugs. Home Meds: Medications pending reconciliation Current Meds: Current Medications Medications Dose Ordered Sig/Drew Start Time Stop Time Status Last Admin Sodium Chloride 1,000 ml @ 50 mls/hr Q20H 11/11/24 20:30 12/11/24 20:29 11/12/24 14:53 Acetaminophen 650 mg Q6H PRN 11/11/24 20:30 12/11/24 20:29 Ondansetron HCl 4 mg Q6H PRN 11/11/24 20:30 12/11/24 20:29 Albuterol 1 UDVIAL [id number] 11/12/24 00:00 12/12/24 00:00 11/12/24 11:04 Budesonide 0.5 mg BIDRESP 11/12/24 06:00 12/12/24 05:59 11/12/24 06:25 Metoprolol Tartrate 5 mg Q6H PRN 11/12/24 10:00 12/12/24 09:59 Metoprolol Tartrate 12.5 mg BID 11/12/24 10:00 12/12/24 09:59 11/12/24 09:55 Hydralazine HCl 5 mg Q6H PRN 11/12/24 14:30 12/12/24 14:29 Diltiazem HCl 125 mg/Sodium Chloride 125 ml @ 0 mls/hr PROTOCOL 11/12/24 11:00 12/12/24 10:59 Insulin Human Regular INSULIN SLIDING SCAL... ACHS 11/12/24 16:30 12/12/24 16:29 Iron Sucrose 100 mg DAILY 11/12/24 14:30 12/12/24 14:29 Thiamine HCl 100 mg DAILY 11/13/24 09:00 12/13/24 08:59 Meropenem 500 mg Q12H9 11/12/24 14:30 11/22/24 14:29 11/12/24 14:53 Review of Systems: Unable to obtain a review of systems as the patient is lethargic Physical Examination: GENERAL: No acute distress. On 3L of O2 via NC. HEAD: Normal with no signs of head trauma. EYES: PERRLA, EOMI, conjunctiva and sclera normal. ENT: Unable to assess hearing. Oropharynx is dry. NECK: Supple without JVD. No thyromegaly. Normal carotid upstrokes without bruits. LUNGS: Diminished breath sounds bilaterally heard anteriorly. Apneic episodes witnessed. HEART: Irregularly irregular rate and rhythm. 2/6 RENATA at the RUSB that radiates to the carotids. VASC: Unable to palpate bilateral DP pulses. ABD: Bowel sounds normal, soft, nontender, no masses, no organomegaly. No audible bruits. : Rivas catheter draining cloudy marielena urine. LYMPH: No lymphadenopathy noted. EXT: No clubbing, cyanosis or edema. SKIN: Left fifth toe with dry gangrene. Left heel with open ulcer and eschar. NEURO: Lethargic. Vital Signs (last 8hr) Date Time Temp Pulse Resp B/P (MAP) Pulse Ox O2 Delivery O2 Flow Rate FiO2 11/12/24 13:13 99 20 129/39 100 Nasal Cannula* 3.0 N/A 11/12/24 11:56 98.4 105 18 109/54 97 Nasal Cannula* 3.0 N/A 11/12/24 11:07 113 21 N/Cannula Low lpm 3.0 11/12/24 11:05 113 21 11/12/24 08:00 97.9 109 21 139/49 99 Nasal Cannula* 3 32 Laboratory: Hematology Labs: Test 11/12/24 12:56 11/12/24 06:57 Range/Units White Blood Count 17.8 H 4.8-10.8 K/uL Red Blood Count 3.35 L 4.50-6.20 MIL/uL Hemoglobin 9.0 L 14.0-18.0 g/dL Hematocrit 30.3 L 42-54 % Mean Corpuscular Volume 90.4 79-99 fL Mean Corpuscular Hemoglobin 26.9 L 27.0-33.0 pg Mean Corpuscular Hemoglobin Concent 29.7 L 32.0-36.0 g/dL Red Cell Distribution Width 17.4 H 11.0-15.5 % Platelet Count 250 130-400 K/uL Mean Platelet Volume 9.0 7.5-10.5 fL Nucleated Red Blood Cells 0.1 0.0-0.19 % Immature Granulocyte % (Auto) 4.5 H 0-1 % Neutrophils (%) (Auto) 80.0 H 40.0-77.0 % Lymphocytes (%) (Auto) 7.7 L 21.0-51.0 % Monocytes (%) (Auto) 3.8 3.0-13.0 % Eosinophils (%) (Auto) 3.5 0.0-8.0 % Basophils (%) (Auto) 0.5 0.0-5.0 % Neutrophils # (Auto) 12.3 H 1.8-7.7 K/uL Lymphocytes # (Auto) 1.2 1.0-4.8 K/uL Monocytes # (Auto) 0.6 0.1-1.0 K/uL Eosinophils # (Auto) 0.54 0.00-0.70 K/uL Basophils # (Auto) 0.07 0.00-0.20 K/uL Absolute Immature Granulocyte (auto 0.69 0-1 K/uL Chemistry Labs: Test 11/12/24 12:56 11/12/24 06:57 11/11/24 21:05 11/11/24 17:00 Range/Units Sodium Level 161 *H 136-145 mmol/L Potassium Level 3.5 3.5-5.1 mmol/L Chloride Level 111 101-111 mmol/L Carbon Dioxide Level 33 H 21-32 mmol/L Blood Urea Nitrogen 163 *H 7-18 mg/dL Creatinine 12.5 *H 0.5-1.3 mg/dL Glomerular Filtration Rate Calc 4 >90 mL/min Random Glucose 168 H 70-105 mg/dL Total Calcium 8.0 L 8.5-10.1 mg/dL Magnesium Level 1.90 1.80-2.40 mg/dL Total Bilirubin 0.3 0.2-1.0 mg/dL Aspartate Amino Transf (AST/SGOT) 30 10-37 U/L Alanine Aminotransferase (ALT/SGPT) 8 L 12-78 U/L Alkaline Phosphatase 86 50-136 U/L Total Protein 7.6 6.0-8.3 g/dL Albumin 1.9 L 3.5-5.0 g/dL Phosphorus Level 8.2 H 2.5-4.9 mg/dL Iron Level 24 L 65-175 mcg/dL Total Iron Binding Capacity 124 L 250-450 mcg/dL Percent Iron Saturation 19.3 L 30-44 % Thyroid Stimulating Hormone (TSH) 26.56 #H 0.36-3.74 uIU/mL Whole Blood Glucose 235 H 70-110 MG/DL Lactic Acid Level 1.8 0.8-2.5 mmol/L Total Creatine Kinase 34 21-232 U/L Troponin I High Sensitivity 55.1 4-75 ng/L B-Type Natriuretic Peptide 839 H 0-100 pg/mL Procalcitonin 1.14 H 0.05-0.5 ng/mL Coagulation Labs: Test 11/12/24 06:57 Range/Units Prothrombin Time 12.8 H 9.6-11.6 SEC Prothromb Time International Ratio 1.16 H 0.85-1.15 Diagnostics / Radiology: Impression and Plan: Atrial fibrillation with RVR, hypercoagulable state, not on anticoagulation due to recurrent anemia UTI Pneumonia Leukocytosis CKD stage V Hypothyroidism, TSH is elevated at 26.56 Iron deficiency Anemia Hypertension Dyslipidemia Diabetes mellitus type 2 History of SVT with successful ablation CAD s/p CABG (ROBLERO-LAD, VG-OM, without grafting of 85% posterior descending stenosis 06/2015) Critical aortic stenosis s/p post 23mm [employer] Trifecta bioprosthetic valve replacement 06/2015 2D echo on 12/30/2021 of poor quality with an EF of greater than 50%, mild aortic stenosis and mild mitral stenosis with mild mitral regurgitation, chamber dimensions could not be accurately measured and the right heart chambers did not appear dilated Dementia Recent hospitalization 10/19- for left foot osteomyelitis, UTI, acute renal failure, and failure to thrive Recent ED visit on 11/10/2024 for UTI and leukocytosis Atrial fibrillation with RVR Hypercoagulable state, not on anticoagulation due to recurrent anemia Telemetry demonstrated atrial fibrillation with heart rates in the 100-120s The patient has been placed on a Diltiazem drip at 5 mg/hr and Metoprolol tartrate 12.5mg BID Continue to treat inciting factors of UTI and Pneumonia and gangrenous left 5th toe -Echocardiogram to assess LV function and aortic bioprosthetic valve -Recommend primary team to speak to the daughter in regards to comfort care EMILY SAM Nov 12, 2024 15:27 MARK KIRK MD Nov 12, 2024 18:06
--- NOTE | 2024-11-12 15:32 | HMCIMG ---
Exam Type: CT ABDOMEN/PELVIS W/O CONTRAST Clinical Information: renal failure, r/o hydronephrosis Comparison: None CT Dose Index (CTDI): 10.20 mGy Dose Length Product (DLP): 530.00 total mGy-cm PROTOCOL: Routine noncontrast helical scanning of the abdomen and pelvis was performed at 5mm collimation. Findings: No evidence of nephro or ureterolithiasis is found. No hydronephrosis or ureteral dilatation is seen. Ill-defined densities of the left upper lobe, lingula and left lower lobe seen consistent with pneumonia. Coronary arterial and cardiac valvular calcifications are identified. The stomach is unremarkable. It shows no wall thickening. No gross ulceration is seen. It is not overly distended. There are no surrounding inflammatory changes. No wall lesions are identified to suggest cancer. The spleen is unremarkable except for benign calcifications. It is not enlarged. The pancreas shows normal anatomy. It is not fatty replaced. It shows no lesions. The pancreatic duct is not dilated. The gallbladder is surgically absent. The adrenal glands are unremarkable. There is no enlargement. No lesions are noted. The liver is unremarkable. It shows no focal masses. The appendix is unremarkable. It shows no evidence of inflammation. No appendicolith is seen. The small bowel is unremarkable. There is no evidence of dilatation to suggest obstruction. No evidence of adynamic ileus is seen. There is no small bowel wall thickening to suggest enteritis. The colon is unremarkable. The urinary bladder is unremarkable. There is no wall thickening to suggest tumor or inflammation. There are no intraluminal calculi. There are no diverticula. There is no evidence of chronic bladder outlet obstruction. There is no evidence of urinary bladder distention to suggest urinary retention. The other pelvic structures are unremarkable. The bony and vascular structures are unremarkable for the patient's age. IMPRESSION: Left-sided pneumonia. Follow-up to complete radiographic resolution recommended. Other chronic findings as noted. This study was performed using dose reduction techniques to include automated exposure control and/or adjustment of the mA and/or kV according to patient size.
[2024-11-12] MEDS: INSULIN humuLIN R 100 UNIT/ML 3ML SQ SCH (16:30)
[2024-11-12] MEDS: IRON sUCROse COMPLEX 100 MG/5 ML VIAL IV SCH (16:57)
[2024-11-12 19:10] VITALS: PULSE 101; RESP 18; O2SAT 97
[2024-11-12] MEDS ORDERED: PHARMACY COMMUNICATION MISC SCH (21:00)
[2024-11-12 22:01] LABS: HEMATOCRIT 30.5 % (42-54); MEAN CORPUSCULAR HEMOGLOBIN 26.3 pg (27.0-33.0); MEAN CORPUSCULAR HGB CONC 29.2 g/dL (32.0-36.0); MEAN CORPUSCULAR VOLUME 90.2 fL (79-99); NUCLEATED RED BLOOD CELLS 0.1 % (0.0-0.19); RED BLOOD CELL COUNT(AUTO) 3.38 MIL/uL (4.50-6.20); RED CELL DISTRIBUTION WIDTH 17.5 % (11.0-15.5); WHITE BLOOD COUNT (AUTO) 17.4 K/uL (4.8-10.8)
--- NOTE | 2024-11-12 23:08 | HMCIMG ---
CT HEAD/BRAIN W/O CONTRAST HISTORY: Dilated left pupil COMPARISON: None TECHNIQUE: Multiple sequential axial images of the head were obtained from the base of the skull through vertex. Patient was not given contrast through intravenous route. FINDINGS: The ventricles and extraventricular CSF spaces are dilated consistent with cerebral atrophy. Nonspecific white matter changes seen. Encephalomalacia changes are seen in the left frontal lobe. There is no midline shift, mass effect or herniation. No acute intracranial bleed is seen. Visualized portion of the paranasal sinuses are grossly within normal limits. IMPRESSION: 1. No acute intracranial bleed is seen. 2. Atrophy with white matter changes. Encephalomalacia changes are noted of the left frontal lobe. CT was performed with one or more following dose reduction techniques: automated exposure control, adjustment of the mA and kv according to patient's size, or use of a iterative reconstruction technique.
[2024-11-13] VITALS (14 sets, daily range): BP systolic 106–120; BP diastolic 45–52; PULSE 68–114; RESP 18–22; TEMP 97.3–98.4; O2SAT 95–99
--- NOTE | 2024-11-13 07:26 | PN ---
[facility] CARDIOLOGY PROGRESS NOTE Date Patient Seen: Nov 13, 2024 Time of Visit: 07:15 Interval History: [A-fib 110s bpm ] Physical Examination: GENERAL: [No acute distress.] HEAD: [Normal with no signs of head trauma.] EYES: [PERRLA, EOMI, conjunctiva and sclera normal.] ENT: [Hearing grossly intact, normal oropharynx.] NECK: [Supple without JVD. There is no tenderness, lymphadenopathy, or masses. No thyromegaly. Normal carotid upstrokes without bruits.] LUNGS: [Clear breath sounds bilaterally. There are right basilar rales one third of the way up the chest. No wheezes, or rhonchi.] HEART: [Normal rate and rhythm. Normal S1 and S2 without mumurs, gallop or rub.] VASC: [Peripheral pulses +2 bilaterally.] ABD: [Bowel sounds normal, soft, nontender, no masses, no organomegaly. No audible bruits.] : [Not examined] LYMPH: [No lymphadenopathy noted.] EXT: [No clubbing, cyanosis or edema.] SKIN: [No rashes or lesions noted.] NEURO: [Awake, alert, and oriented x3. No focal sensory or strength deficits noted.] Laboratory: [ ] Hematology Labs: Test 11/12/24 21:54 11/12/24 06:57 Range/Units White Blood Count 17.4 H 4.8-10.8 K/uL Red Blood Count 3.38 L 4.50-6.20 MIL/uL Hemoglobin 8.9 L 14.0-18.0 g/dL Hematocrit 30.5 L 42-54 % Mean Corpuscular Volume 90.2 79-99 fL Mean Corpuscular Hemoglobin 26.3 L 27.0-33.0 pg Mean Corpuscular Hemoglobin Concent 29.2 L 32.0-36.0 g/dL Red Cell Distribution Width 17.5 H 11.0-15.5 % Platelet Count 211 130-400 K/uL Mean Platelet Volume 9.0 7.5-10.5 fL Nucleated Red Blood Cells 0.1 0.0-0.19 % Immature Granulocyte % (Auto) 4.5 H 0-1 % Neutrophils (%) (Auto) 80.0 H 40.0-77.0 % Lymphocytes (%) (Auto) 7.7 L 21.0-51.0 % Monocytes (%) (Auto) 3.8 3.0-13.0 % Eosinophils (%) (Auto) 3.5 0.0-8.0 % Basophils (%) (Auto) 0.5 0.0-5.0 % Neutrophils # (Auto) 12.3 H 1.8-7.7 K/uL Lymphocytes # (Auto) 1.2 1.0-4.8 K/uL Monocytes # (Auto) 0.6 0.1-1.0 K/uL Eosinophils # (Auto) 0.54 0.00-0.70 K/uL Basophils # (Auto) 0.07 0.00-0.20 K/uL Absolute Immature Granulocyte (auto 0.69 0-1 K/uL Chemistry Labs: Test 11/12/24 20:17 11/12/24 12:56 11/12/24 06:57 11/11/24 17:00 Range/Units Whole Blood Glucose 195 H 70-110 MG/DL Sodium Level 161 *H 136-145 mmol/L Potassium Level 3.5 3.5-5.1 mmol/L Chloride Level 111 101-111 mmol/L Carbon Dioxide Level 33 H 21-32 mmol/L Blood Urea Nitrogen 163 *H 7-18 mg/dL Creatinine 12.5 *H 0.5-1.3 mg/dL Glomerular Filtration Rate Calc 4 >90 mL/min Random Glucose 168 H 70-105 mg/dL Total Calcium 8.0 L 8.5-10.1 mg/dL Magnesium Level 1.90 1.80-2.40 mg/dL Total Bilirubin 0.3 0.2-1.0 mg/dL Aspartate Amino Transf (AST/SGOT) 30 10-37 U/L Alanine Aminotransferase (ALT/SGPT) 8 L 12-78 U/L Alkaline Phosphatase 86 50-136 U/L Total Protein 7.6 6.0-8.3 g/dL Albumin 1.9 L 3.5-5.0 g/dL Phosphorus Level 8.2 H 2.5-4.9 mg/dL Iron Level 24 L 65-175 mcg/dL Total Iron Binding Capacity 124 L 250-450 mcg/dL Percent Iron Saturation 19.3 L 30-44 % Thyroid Stimulating Hormone (TSH) 26.56 #H 0.36-3.74 uIU/mL Lactic Acid Level 1.8 0.8-2.5 mmol/L Total Creatine Kinase 34 21-232 U/L Troponin I High Sensitivity 55.1 4-75 ng/L B-Type Natriuretic Peptide 839 H 0-100 pg/mL Procalcitonin 1.14 H 0.05-0.5 ng/mL Coagulation Labs: Test 11/12/24 06:57 Range/Units Prothrombin Time 12.8 H 9.6-11.6 SEC Prothromb Time International Ratio 1.16 H 0.85-1.15 Diagnostics / Radiology: [Copy/Paste Echos/Imaging Report here] Impression and Plan: [Atrial fibrillation with RVR, hypercoagulable state, not on anticoagulation due to recurrent anemia UTI Pneumonia Leukocytosis Gangrenous left 5th digit CKD stage V Hypothyroidism, TSH is elevated at 26.56 Iron deficiency Anemia Hypertension Dyslipidemia Diabetes mellitus type 2 History of SVT with successful ablation CAD s/p CABG (ROBLERO-LAD, VG-OM, without grafting of 85% posterior descending stenosis 06/2015) Critical aortic stenosis s/p post 23mm [employer] Trifecta bioprosthetic valve replacement 06/2015 now with abnormal DVI Moderate mitral stenosis 2D echo on 12/30/2021 of poor quality with an EF of greater than 50%, mild aortic stenosis and mild mitral stenosis with mild mitral regurgitation, chamber dimensions could not be accurately measured and the right heart chambers did not appear dilated Dementia Recent hospitalization 10/19- for left foot osteomyelitis, UTI, acute renal failure, and failure to thrive Recent ED visit on 11/10/2024 for UTI and leukocytosis Atrial fibrillation with RVR likely due to infections Hypercoagulable state, not on anticoagulation due to recurrent anemia Telemetry demonstrated atrial fibrillation with heart rates in the 100-120s The patient has been placed on a Diltiazem drip at 5 mg/hr and Metoprolol tartrate 12.5mg BID Continue to treat inciting factors of UTI and Pneumonia and gangrenous left 5th toe -Echocardiogram 11/12 with abnormal DVI 0.18 cm of prosthetic aortic valve and moderate mitral stenosis with mitral gradient of 6 mm hg. Further valve workup would require the use of contrast which will further cause renal decline -Recommend primary team to speak to the daughter (Martita) in regards to hospice reinitiation as patient's kidney failure is worsening and she has declined dialysis for him by stating this on phone with me last night Connie Avilez MD ] CONNIE AVILEZ MD Nov 13, 2024 07:26
[2024-11-13 07:52] LABS: BASOPHILS # (AUTO) 0.07 K/uL (0.00-0.20); BASOPHILS % (AUTO) 0.5 % (0.0-5.0); EOSINOPHILS # (AUTO) 0.46 K/uL (0.00-0.70); EOSINOPHILS % (AUTO) 3.1 % (0.0-8.0); HEMATOCRIT 27.9 % (42-54); LYMPHOCYTES # (AUTO) 1.1 K/uL (1.0-4.8); LYMPHOCYTES % (AUTO) 7.5 % (21.0-51.0); MEAN CORPUSCULAR HEMOGLOBIN 26.7 pg (27.0-33.0); MEAN CORPUSCULAR HGB CONC 29.4 g/dL (32.0-36.0); MEAN CORPUSCULAR VOLUME 90.9 fL (79-99); MONOCYTES # (AUTO) 0.6 K/uL (0.1-1.0); MONOCYTES % (AUTO) 3.9 % (3.0-13.0); NEUTROPHILS % (AUTO) 79.7 % (40.0-77.0); NUCLEATED RED BLOOD CELLS 0.3 % (0.0-0.19); PLATELET COUNT (AUTO) 218 K/uL (130-400); RED BLOOD CELL COUNT(AUTO) 3.07 MIL/uL (4.50-6.20); RED CELL DISTRIBUTION WIDTH 17.7 % (11.0-15.5); WHITE BLOOD COUNT (AUTO) 15.1 K/uL (4.8-10.8)
[2024-11-13 08:22] LABS: % IRON SATURATION 38.1 % (30-44)
[2024-11-13 08:39] LABS: ALBUMIN 1.7 g/dL (3.5-5.0); BILIRUBIN,TOTAL 0.4 mg/dL (0.2-1.0); MAGNESIUM 1.8 mg/dL (1.80-2.40); POTASSIUM 3.4 mmol/L (3.5-5.1); TOTAL PROTEIN, SERUM 6.7 g/dL (6.0-8.3)
[2024-11-13 09:01] LABS: CREATININE 11.9 mg/dL (0.5-1.3)
[2024-11-13 09:22] LABS: HEMATOCRIT 27.2 % (42-54); MEAN CORPUSCULAR HEMOGLOBIN 26.6 pg (27.0-33.0); MEAN CORPUSCULAR VOLUME 91.6 fL (79-99); NUCLEATED RED BLOOD CELLS 0.1 % (0.0-0.19); RED BLOOD CELL COUNT(AUTO) 2.97 MIL/uL (4.50-6.20); RED CELL DISTRIBUTION WIDTH 17.6 % (11.0-15.5)
[2024-11-13] MEDS: THIAMINE HCL 100 MG/ML 2ML VIAL IVP SCH (09:46)
--- NOTE | 2024-11-13 09:54 | PN ---
[facility] PROGRESS NOTE Date of Service: Nov 13, 2024 Time of Service: 09:51 SUBJECTIVE: 11/12 patient is seen and examined at bedside, case discussed with the RN. No family members at bedside during my visit. BP 109/54, patient is still tachycardic, heart rate between 105-117, atrial fibrillation. Patient is saturating 97% on 3 L via nasal cannula. Blood tests reviewed, CBC with a hem oglobin 8.4, hematocrit 29.4, WBC 15.4, platelet count of 253. CMP with sodium 160, potassium 3.5, BUN of 159, creatinine 2.5. Chest x-ray showing left lung greater than right mid lung pulmonary edema or other space disease, without pneumothorax. 11/13 patient seen and examined at bedside, case discussed with RN, no acute events overnight, patient more awake today compared to yesterday. He remains on Cardizem drip. Still mildly tachycardic, BP stable. Rivas catheter inserted, creatinine 11.9. The patient with a history of hypercoagulable state, not a candidate for anticoagulation secondary to history of recurrent anemia. Patient remains on metoprolol 12.5 mg p.o. b.i.d.. Patient getting broad-spectrum IV antibiotics at the time my visit, continue to follow results of septic workup. We will attempt to call the daughter over the phone to discuss considering hospice services as the prognosis of the patient is poor and guarded. REVIEW OF SYSTEMS CONSTITUTIONAL: Denies fevers, chills, or night sweats. No unintentional weight loss reported. NEUROLOGICAL: Denies headache, amaurosis fugax, motor weakness, sensory deficit, vertigo/spinning sensation, gait abnormalities, or tremors. ENT: No hearing loss, otalgia, otorrhea, rhinitis, rhinorrhea, hoarseness, or sore throat. CARDIOVASCULAR: Denies any exertional angina, dyspnea on exertion, orthopnea, paroxysmal nocturnal dyspnea, palpitations, life-threatening arrhythmias, claudication. PULMONARY: Denies any shortness of breath, cough, phlegm/sputum, hemoptysis, pleuritic chest pain. SLEEP: Denies morning headaches, daytime somnolence or napping. Denies difficulty falling asleep, staying asleep, waking from sleep. Denies knowledge of snoring. GASTROINTESTINAL: Denies any type of dysphagia to either liquids or solids. Denies nausea, vomiting, pyrosis, early satiety, abdominal pain, diarrhea, constipation, or changes in stool consistency or caliber. Denies coffee-ground emesis, hematemesis, hematochezia, or melanotic stools. GENITOURINARY: Denies frequency, urgency, nocturia, hematuria or incontinence (Storage/Irritative symptoms.) Low urinary stream, straining to void, urinary intermittency or hesitancy, splitting of the voiding stream, terminal dribbling. ENDOCRINOLOGIC: Denies polyuria, polydipsia, polyphagia or heat/cold intolerances. HEMATOLOGIC: Denies thrombophilia/previous clots, or coagulopathy/bleeding disorders. ONCOLOGIC: Denies personal history of malignancy. DERMATOLOGIC: Denies rashes or pruritus. PSYCHIATRIC: Denies any suicidal or homicidal ideation. Denies hallucinations. PHYSICAL EXAM GENERAL APPEARANCE: The patient comfortably in bed, not verbalizing, withdrawing to painful stimulation, looks very dehydrated. NEUROLOGICAL: Cranial nerves II-XII grossly intact. Motor is 5/5 in bilateral upper and lower extremities proximal to distal. No sensory deficits. HEENT: Face is symmetric. Pupils are equal and reactive. Extraocular movements are intact. NECK: Supple. No JVD. No thyromegaly. No submental, submandibular, pre- /postauricular, occipital or supraclavicular lymphadenopathy. CHEST: Normal chest expansion. No Telemetry. LUNGS: Absence of any rales, rhonchi or any wheezing. CARDIOVASCULAR: Regular. S1 and S2 normal. No appreciable rubs, murmurs or gallops. ABDOMEN: Soft, nontender, and nondistended. There is no rebound, voluntary guarding, or rigidity. : Deferred. No Rivas. EXTREMITIES: Non-edematous and not cyanotic. No clubbing. Good capillary refill. SKIN: No skin breakdown. Vital Signs (last 8hr) Date Time Temp Pulse Resp B/P (MAP) Pulse Ox O2 Delivery O2 Flow Rate FiO2 11/13/24 09:41 109 18 109/52 98 Nasal Cannula 2.0 11/13/24 08:00 97.9 106 18 117/45 97 Nasal Cannula 2.0 11/13/24 06:58 110 20 11/13/24 06:57 20 N/Cannula Low lpm 3.0 32 11/13/24 05:00 112 20 120/49 95 Nasal Cannula* 3.0 N/A 11/13/24 04:00 98.6 110 14 129/52 95 Nasal Cannula* 3.0 N/A 11/13/24 03:00 113 16 123/47 94 Nasal Cannula* 3.0 N/A 11/13/24 02:00 108 16 108/37 94 Nasal Cannula* 3.0 N/A LABS: Laboratory: Test 11/13/24 09:09 11/13/24 07:18 11/12/24 20:17 11/12/24 11:42 Range/Units White Blood Count 16.0 H 4.8-10.8 K/uL Red Blood Count 2.97 L 4.50-6.20 MIL/uL Hemoglobin 7.9 L 14.0-18.0 g/dL Hematocrit 27.2 L 42-54 % Mean Corpuscular Volume 91.6 79-99 fL Mean Corpuscular Hemoglobin 26.6 L 27.0-33.0 pg Mean Corpuscular Hemoglobin Concent 29.0 L 32.0-36.0 g/dL Red Cell Distribution Width 17.6 H 11.0-15.5 % Platelet Count 204 130-400 K/uL Mean Platelet Volume 9.1 7.5-10.5 fL Nucleated Red Blood Cells 0.1 0.0-0.19 % Immature Granulocyte % (Auto) 5.3 H 0-1 % Neutrophils (%) (Auto) 79.7 H 40.0-77.0 % Lymphocytes (%) (Auto) 7.5 L 21.0-51.0 % Monocytes (%) (Auto) 3.9 3.0-13.0 % Eosinophils (%) (Auto) 3.1 0.0-8.0 % Basophils (%) (Auto) 0.5 0.0-5.0 % Neutrophils # (Auto) 12.0 H 1.8-7.7 K/uL Lymphocytes # (Auto) 1.1 1.0-4.8 K/uL Monocytes # (Auto) 0.6 0.1-1.0 K/uL Eosinophils # (Auto) 0.46 0.00-0.70 K/uL Basophils # (Auto) 0.07 0.00-0.20 K/uL Absolute Immature Granulocyte (auto 0.80 0-1 K/uL Sodium Level 160 *H 136-145 mmol/L Potassium Level 3.4 L 3.5-5.1 mmol/L Chloride Level 111 101-111 mmol/L Carbon Dioxide Level 29 21-32 mmol/L Blood Urea Nitrogen 161 *H 7-18 mg/dL Creatinine 11.9 *H 0.5-1.3 mg/dL Glomerular Filtration Rate Calc 4 >90 mL/min Random Glucose 205 H 70-105 mg/dL Uric Acid 17.0 H 2.6-7.2 mg/dL Total Calcium 7.5 L 8.5-10.1 mg/dL Phosphorus Level 8.0 H 2.5-4.9 mg/dL Magnesium Level 1.80 1.80-2.40 mg/dL Iron Level 45 #L 65-175 mcg/dL Total Iron Binding Capacity 118 L 250-450 mcg/dL Percent Iron Saturation 38.1 30-44 % Ferritin 864 H 30-400 ng/mL Total Bilirubin 0.4 # 0.2-1.0 mg/dL Aspartate Amino Transf (AST/SGOT) 35 10-37 U/L Alanine Aminotransferase (ALT/SGPT) 7 L 12-78 U/L Alkaline Phosphatase 77 50-136 U/L Total Protein 6.7 6.0-8.3 g/dL Albumin 1.7 L 3.5-5.0 g/dL Free Thyroxine (T4) Direct 0.38 L 0.76-1.46 ng/dL Whole Blood Glucose 195 H 70-110 MG/DL Group A Streptococcus Rapid negative NEGATIVE Test 11/12/24 10:10 11/12/24 09:23 11/12/24 06:57 11/11/24 17:40 Range/Units Blood Gas Specimen Type Venous Arterial Blood Oxygen Saturation 53.4 L 94.0-98.0 % Venous Blood pH 7.362 7.320-7.430 Venous Blood pCO2 at Patient Temp 45 38-54 Venous Blood pO2 at Patient Temp 31.5 23.0-48.0 mmHg Venous Blood HCO3 24.8 22.0-29.0 Venous Blood Base Excess -0.7 -2.0-3.0 Venous Blood Total Hemoglobin 8.8 L 13.5-17.5 Sodium (Blood Gas) 159 *H 136-145 MMOL/L Bedside Potassium (Blood Gas) 3.4 3.4-4.5 MMOL/L Bedside Chloride (Blood Gas) 108 H 98-107 MMOL/L Bedside Glucose (Blood Gas) 218 H 65-95 MG/DL Bedside Ionized Calcium (Blood Gas) 0.79 L 1.15-1.33 MMOL/L Bedside Lactic Acid (Blood Gas) 2.19 H 0.36-0.75 MMOL/L Blood Gas Temperature 37.0 35.5-37.0 CELSIUS Blood Gas Vent Mode RA ROOM AIR FiO2 21.0 % Blood Gas Specimen Comment BRITTANIE MCMANUS Influenza Type A Antigen Negative For Type A NEGATIVE Influenza Type B Antigen Negative For Type B NEGATIVE SARS-CoV-2 Antigen (Rapid) PRESUMPTIVE NEGATIVE NEGATIVE Prothrombin Time 12.8 H 9.6-11.6 SEC Prothromb Time International Ratio 1.16 H 0.85-1.15 Thyroid Stimulating Hormone (TSH) 26.56 #H 0.36-3.74 uIU/mL Arterial Blood pH 7.444 7.350-7.450 Arterial Blood Partial Pressure CO2 44 35-48 mmHg Arterial Blood Partial Pressure O2 93.3 83.0-108.0 mmHg Arterial Blood HCO3 29.1 H 21.0-28.0 mmol/L Arterial Blood Base Excess 4.6 H -2.0-3.0 mmol/L Hemoglobin (Blood Gas) 9.0 L 13.5-17.5 g/dL Blood Gas Flow-by 3.00 0.00-15.00 L/min Test 11/11/24 17:00 Range/Units Lactic Acid Level 1.8 0.8-2.5 mmol/L Total Creatine Kinase 34 21-232 U/L Troponin I High Sensitivity 55.1 4-75 ng/L B-Type Natriuretic Peptide 839 H 0-100 pg/mL Procalcitonin 1.14 H 0.05-0.5 ng/mL Current Medications Medications (Trade) Dose Ordered Sig/Drew Route PRN Reason Start Time Stop Time Status Last Admin Dose Admin Acetaminophen (TYLenol 650MG SUPPOSITORY) 650 mg Q6H PRN RC MILD PAIN (1-3) 11/11/24 20:30 12/11/24 20:29 Albuterol (DUOneb) 1 UDVIAL [id number] IH 11/12/24 00:00 12/12/24 00:00 11/13/24 06:56 1 UDVIAL Budesonide (Pulmicort 0.5 Mg/2ml) 0.5 mg BIDRESP IH 11/12/24 06:00 12/12/24 05:59 11/13/24 06:56 0.5 MG Ceftriaxone Sodium (ROCEphine 1G INJ) 1 gm Q24H IVPB 11/12/24 10:00 11/12/24 14:30 DC 11/12/24 09:55 1 GM Diltiazem HCl 125 mg/Sodium Chloride 125 ml @ 0 mls/hr PROTOCOL IV 11/12/24 11:00 12/12/24 10:59 Doxycycline Hyclate 250 ml @ 125 mls/hr Q12H IV 11/12/24 11:00 11/12/24 14:31 DC 11/12/24 11:03 125 MLS/HR Hydralazine HCl (APRESOLine 20MG INJ) 5 mg Q6H PRN IV ADMINISTER FOR SBP > 160 11/12/24 10:00 11/12/24 09:50 DC Hydralazine HCl (APRESOLine 20MG INJ) 5 mg Q6H PRN IV For:SBP above 160;DBP above 90 11/12/24 14:30 12/12/24 14:29 Hydralazine HCl (APRESOLine 20MG INJ) 10 mg Q6H PRN IV For:SBP above 160;DBP above 90 11/11/24 20:30 11/12/24 09:44 DC Insulin Human Regular (humuLIN R 100 UNIT/ML 3ML) INSULIN SLIDING SCAL... ACHS SQ 11/11/24 21:00 11/12/24 09:44 DC 11/12/24 09:26 3 UNIT Insulin Human Regular (humuLIN R 100 UNIT/ML 3ML) INSULIN SLIDING SCAL... ACHS SQ 11/12/24 16:30 12/12/24 16:29 11/12/24 20:53 2 UNIT Iron Sucrose (VenoFER) 100 mg DAILY IV 11/12/24 13:00 11/12/24 14:07 DC Iron Sucrose (VenoFER) 100 mg DAILY IV 11/12/24 14:30 12/12/24 14:29 11/13/24 09:46 100 MG Meropenem (Merrem 500mg) 500 mg Q12H9 IV 11/12/24 14:30 11/22/24 14:29 11/13/24 09:46 500 MG Metoprolol Tartrate (loprESSOR) 5 mg Q6H PRN IV INCREASED HEART RATE 11/12/24 10:00 12/12/24 09:59 Metoprolol Tartrate (loprESSOR) 12.5 mg BID PO 11/12/24 10:00 12/12/24 09:59 11/13/24 09:45 12.5 MG Morphine Sulfate (morPHINE 2MG SYG) 2 mg Q4H PRN IVP SEVERE PAIN (7-10) 11/11/24 20:30 11/12/24 09:44 DC Ondansetron HCl (zoFRAN 4MG INJ) 4 mg Q6H PRN IV NAUSEA/VOMITING 11/11/24 20:30 12/11/24 20:29 Pharmacy Profile Note (Pharmacy Communication) 1 each AD MISC 11/12/24 21:00 11/19/24 20:59 Sodium Chloride 1,000 ml @ 50 mls/hr Q20H IV 11/11/24 20:30 12/11/24 20:29 11/12/24 14:53 50 MLS/HR Sodium Chloride 1,000 ml @ 120 mls/hr Q8H20M IV 11/12/24 08:30 11/12/24 08:27 DC Thiamine HCl (Vitamin B-1) 100 mg DAILY IVP 11/13/24 09:00 12/13/24 08:59 11/13/24 09:46 100 MG DIAGNOSTICS / RADIOLOGY: [ ] ASSESSMENT: Acute COPD exacerbation, POA Acute Pulmonary edema, POA NATASHA on CKD, POA Possible sepsis due to pneumonitis, POA Atrial fibrillation with a RVR Uncontrolled Diabetes mellitius type2, POA Leukocytosis, POA Hypernatremia, POA Hyperlipidemia Dementia Hypothyroidism Anemia of chronic disease can not exclude acute GI bleed PLAN: Patient to be admitted to the PCU Continue the patient on alarm security or surveillance monitor Start the patient on Cardizem drip Echocardiogram to evaluate ejection fraction Cardiology consultation requested, follow input and recommendation Continue the patient on IV fluids, monitor renal function in a.m. Nephrology consultation requested, follow input and recommendation Venous blood gas requested to assess metabolic status Renal ultrasound to rule out obstructive uropathy Follow septic workup, start the patient on broad-spectrum IV antibiotics. Serology tests requested Infectious disease consulted, we will follow input and recommendation Pulmonary consultation requested, follow input and recommendation Follow stool occult blood, if positive we will request GI consultation Serial CBC transfuse as needed Follow iron level studies NEURO: Minimize central acting medications as possible. Fall Precautions. Well lighted room through the day and minimize interruptions through the night to prevent acute delirium. PULMONARY: Supplemental 02 as needed BiPAP as necessary, for respiratory distress Titrate Fio2 to keep Spo2 > or = 90% DuoNebs and CPT as needed IS hourly while awake for pulmonary hygiene prn Out of bed to chair as tolerated Maintain aspiration precautions at all times CARDIOVASCULAR: Follow hemodynamics. Vital signs per facility protocol GI & NUTRITION: Continue nutritional support Aspirations precautions Prokinetic agents and laxatives as needed KIDNEYS & ELECTROLYTES: Strict monitoring of intake and output Daily weights Avoid nephrotoxic agents Monitor electrolytes and replace as needed Goal urine output of 30mL/hr or 0.5mL/kg/hr Medications to be dosed according to renal function. Avoid contrast if possible ENDOCRINE: Maintain blood glucose between 100-180 at all times. Insulin sliding scale for blood glucose management Hypoglycemia and hyperglycemia protocol in place INFECTIOUS DISEASE: Trend temperature, WBC and procalcitonin level Follow cultures, deescalate antibiotics as soon as possible. Panculture if new onset fever HEMATOLOGY & COAGULATION: Monitor H&H. Keep Hgb > 7 Transfuse 1 unit of PRBC for Hgb < 7 Transfuse 1 pack of platelets of platelets < 20, 000 Watch for any signs and symptoms of bleeding SKIN: Pressure ulcer prevention per facility protocol Specialty mattress as needed ORTHO/REHAB Continue PT/OT PRN: MEDICATIONS Tylenol 650 mg po every 4 hrs for fever zofran 4 mg IV every 6 hrs for n/v Hydralazine 5 mg IV every 4 hrs systolic pressure > 160 bowel regiment: lactulose 20 gm PO BID PRN constipation Supportive measures: Continue GI and DVT prophylaxis Disposition: Admit the patient to the PCU. All questions answered time spent: > 35 min NAHID RICCI MD Nov 13, 2024 09:54
[2024-11-13] MEDS: dilTIAZem 125 MG/25 ML INJ 125 MG in 0.9%NACL 100ML 100 ML IV SCH (13:00)
[2024-11-13] MEDS: DEXTROSE 5%-WATER 1,000 ML IV SCH (13:48)
--- NOTE | 2024-11-13 14:30 | NUR ---
ARRIVAL ADMISSION Unable to obtain complete history of patient due to patient not being oriented. Patient only oriented to name, responds to voice; with occasional requests for water. GOLDBEATER stated patient was coughing with water when given small sips. Bedside swallow study performed and failed. Patient not able to follow commands. Patient's daughter, Federico notified of need for patient's history and home meds. Patient's daughter, Federico, pending to come bring in home meds. [id number]-Dr. Smith notified of patient and patient's status. Dr. Smith stated to call when patient's daughter arrived.
--- NOTE | 2024-11-13 14:46 | PN ---
[facility] PROGRESS NOTE Date Patient Seen: Nov 13, 2024 Time of Visit: 14:27 Supervising Physician: Dr. Del Cid Primary Care Physician: Dr. Ware Outpatient Specialists: [ ] Inpatient Consults: Pulmonary, cardiology, Nephrology PROBLEM LIST: Acute respiratory failure currently requiring nasal cannula supplementation. Hospital-acquired pneumonia. Acute urinary tract infection, with the presence of indwelling catheter. Acute sepsis and shock suspect from pulmonary source versus urinary tract source. Acute hypernatremia. Dehydration. Atrial fibrillation with RVR, hypercoagulable state, not on anticoagulation due to recurrent anemia CKD stage V Hypothyroidism, TSH is elevated at 26.56 Iron deficiency Anemia Hypertension Dyslipidemia Diabetes mellitus type 2 History of SVT with successful ablation CAD s/p remote CABG Critical aortic stenosis s/p bioprosthetic valve replacement 06/2015 Dementia INTERVAL HISTORY: 09/12/2025: At the time of my evaluation, the patient is in his assigned room. He remains generally confused, not verbally interactive and unaware of his surroundings. Respiratory kowalski the patient is maintaining optimal oxygenation and saturation on nasal cannula 2 L. On the monitor, the patient remains normotensive, but tachycardic. He is currently on a Cardizem drip for management of his AFib and Cardiology remains on board. The patient failed his bedside swallow study and is not a candidate for oral feedings. The patient may need a NGT if RP permits nutritional support. The patient continues to void through a Rivas catheter. On laboratory, the WBC count improved from 17.4 yesterday to 16.0 today. He continues on antibiotic coverage currently on Meropenem. Also, the sodium count remains elevated at 160, potassium is low 3.4, BUN 161 and a creatinine of 11.9 with a GFR of four. The patient continues on IV infusion with D5 at 100 cc/hour. Blood cultures are currently showing no growth and urine culture showing Gram-negative rods. No new imaging for review. No other complaint. REVIEW OF SYSTEMS: 12 point ROS reviewed with patient. Pertinent positives mentioned above. Otherwise negative. PHYSICAL EXAM: GENERAL: alert, weak, awake oriented x self HEENT: EOMI, Sclera non icteric, moist mucosa NECK: Supple, no JVD, trachea midline LUNGS: Clear breath sounds bilaterally. No wheezes HEART: Regular rate and rhythm. Normal S1 and S2, without murmurs ABD: Abdomen soft, nontender. Bowel sounds present EXT: No clubbing cyanosis or edema NEURO: Unable to carry out neurologic evaluation as the patient is not following commands. Vital Signs (last 8hr) Date Time Temp Pulse Resp B/P (MAP) Pulse Ox O2 Delivery O2 Flow Rate FiO2 11/13/24 13:00 120 110/50 11/13/24 12:00 97.9 114 18 115/47 98 Nasal Cannula 2.0 11/13/24 11:00 111 20 11/13/24 09:41 109 18 109/52 98 Nasal Cannula 2.0 11/13/24 08:00 97.9 106 18 117/45 97 Nasal Cannula 2.0 11/13/24 06:58 110 20 11/13/24 06:57 20 N/Cannula Low lpm 3.0 32 LABS: Hematology Labs: Test 11/13/24 09:09 11/13/24 07:18 Range/Units White Blood Count 16.0 H 4.8-10.8 K/uL Red Blood Count 2.97 L 4.50-6.20 MIL/uL Hemoglobin 7.9 L 14.0-18.0 g/dL Hematocrit 27.2 L 42-54 % Mean Corpuscular Volume 91.6 79-99 fL Mean Corpuscular Hemoglobin 26.6 L 27.0-33.0 pg Mean Corpuscular Hemoglobin Concent 29.0 L 32.0-36.0 g/dL Red Cell Distribution Width 17.6 H 11.0-15.5 % Platelet Count 204 130-400 K/uL Mean Platelet Volume 9.1 7.5-10.5 fL Nucleated Red Blood Cells 0.1 0.0-0.19 % Immature Granulocyte % (Auto) 5.3 H 0-1 % Neutrophils (%) (Auto) 79.7 H 40.0-77.0 % Lymphocytes (%) (Auto) 7.5 L 21.0-51.0 % Monocytes (%) (Auto) 3.9 3.0-13.0 % Eosinophils (%) (Auto) 3.1 0.0-8.0 % Basophils (%) (Auto) 0.5 0.0-5.0 % Neutrophils # (Auto) 12.0 H 1.8-7.7 K/uL Lymphocytes # (Auto) 1.1 1.0-4.8 K/uL Monocytes # (Auto) 0.6 0.1-1.0 K/uL Eosinophils # (Auto) 0.46 0.00-0.70 K/uL Basophils # (Auto) 0.07 0.00-0.20 K/uL Absolute Immature Granulocyte (auto 0.80 0-1 K/uL Chemistry Labs: Test 11/13/24 11:10 11/13/24 07:18 11/12/24 06:57 11/11/24 17:00 Range/Units Whole Blood Glucose 204 H 70-110 MG/DL Sodium Level 160 *H 136-145 mmol/L Potassium Level 3.4 L 3.5-5.1 mmol/L Chloride Level 111 101-111 mmol/L Carbon Dioxide Level 29 21-32 mmol/L Blood Urea Nitrogen 161 *H 7-18 mg/dL Creatinine 11.9 *H 0.5-1.3 mg/dL Glomerular Filtration Rate Calc 4 >90 mL/min Random Glucose 205 H 70-105 mg/dL Uric Acid 17.0 H 2.6-7.2 mg/dL Total Calcium 7.5 L 8.5-10.1 mg/dL Phosphorus Level 8.0 H 2.5-4.9 mg/dL Magnesium Level 1.80 1.80-2.40 mg/dL Iron Level 45 #L 65-175 mcg/dL Total Iron Binding Capacity 118 L 250-450 mcg/dL Percent Iron Saturation 38.1 30-44 % Ferritin 864 H 30-400 ng/mL Total Bilirubin 0.4 # 0.2-1.0 mg/dL Aspartate Amino Transf (AST/SGOT) 35 10-37 U/L Alanine Aminotransferase (ALT/SGPT) 7 L 12-78 U/L Alkaline Phosphatase 77 50-136 U/L Total Protein 6.7 6.0-8.3 g/dL Albumin 1.7 L 3.5-5.0 g/dL Free Thyroxine (T4) Direct 0.38 L 0.76-1.46 ng/dL Hemoglobin A1c 7.4 H 4.8-5.6 % Thyroid Stimulating Hormone (TSH) 26.56 #H 0.36-3.74 uIU/mL Lactic Acid Level 1.8 0.8-2.5 mmol/L Total Creatine Kinase 34 21-232 U/L Troponin I High Sensitivity 55.1 4-75 ng/L B-Type Natriuretic Peptide 839 H 0-100 pg/mL Procalcitonin 1.14 H 0.05-0.5 ng/mL Coagulation Labs: Test 11/12/24 06:57 Range/Units Prothrombin Time 12.8 H 9.6-11.6 SEC Prothromb Time International Ratio 1.16 H 0.85-1.15 DIAGNOSTICS / RADIOLOGY RESULTS: [ ] PLAN During my visit, the patient remained in the emergency department awaiting bed assignment. He was generally confused and was not able to participate in in his bedside assessment. There was no family members present at the bedside during my visit. The patient will continue on oxygen supplementation via nasal cannula and we will adjust as necessary. Cardiac-kowalski, he is hemodynamically stable and was started on Cardizem due to the recent AFib RVR event. Currently, the patient will remain NPO. Bedside swallow exam was ordered and we will possibly require an MBSS. The patient will remain on IV half NS and we will follow the sodium trend. The patient initially received antibiotic coverage with Rocephin and doxycycline. Hospitalist team brought in covered with IV Merrem. We will continue this regimen for now and we will follow the culture reports. We will monitor the patient's progress and response to management. We will repeat surveillance labs in the morning. We will continue to provide general supportive care, GI and DVT prophylaxis. Appreciate the opportunity given to participate in patient care. Further orders per attending MD and hospital course. 11/13/2024: For now, going to continue current management for the patient. For going to continue monitoring his mental status. We will continue oxygen supplementation via the nasal cannula and we will adjust as necessary. The patient will remain on Cardizem drip and we will follow the advice of the montessori paraprofessional, who made mentioned that the AFib with RVR is likely due to his infectious process. 2D echo performed showed a LVEF of 55-60%. There was inability to assess the diastolic function. The patient will likely require a NGT for further feeding due to his high risk for aspiration if the daughter agrees. We will continue with D5 at 100 cc/hour, as ordered by the vice president and portfolio manager for rehydration and correction of his electrolyte imbalance. We will continue antibiotic therapy with IV Merrem and follow the urine and blood culture results. I do agree with the montessori paraprofessional's to revisit with the patient's daughter who is the RP to reinitiate hospice care as the patient is a DNR and she is declining any aggressive care such as hemodialysis that was previously offered. We will monitor the patient's progress and response to management. We will continue to provide general supportive care, GI and DVT prophylaxis. Further orders per attending MD and hospital course. NEURO: Minimize central acting medications as possible. Maintain fall precautions, adequate lighting during the day PULMONARY: Supplemental 02 as needed. Maintain aspiration precautions at all times CARDIOVASCULAR: Follow hemodynamics. Vital signs per facility protocol GI & NUTRITION: Continue with nutritional support. Continue stool softeners and laxatives as needed. KIDNEYS & ELECTROLYTES: Strict monitoring of intake, output and overall fluid balance. Avoid nephrotoxic medications to the extent possible. Medications to be dosed according to renal function. Monitor electrolytes and replace as needed ENDOCRINE: Maintain blood glucose between 100-180 at all times. Hypoglycemia protocol in place INFECTIOUS DISEASE: Trend temperature, WBC and procalcitonin level Follow cultures, deescalate antibiotics as soon as possible. Panculture if new onset fever ONCOLOGY/HEMATOLOGY/COAGULATION: Monitor for s/s of bleeding Monitor hemoglobin, coagulation studies as needed SKIN: Pressure ulcer prevention per facility protocol Specialty mattress ORTHO/REHAB: Continue PT/OT Prophylaxis: Continue GI and DVT prophylaxis Code Status: Full Resuscitation Disposition: TBD Other: Total patient care time exceeds 35 minutes excluding all procedures. TED SOSA NP Nov 13, 2024 14:46
[2024-11-13 15:28] LABS: HEMATOCRIT 26.2 % (42-54); MEAN CORPUSCULAR HEMOGLOBIN 26.8 pg (27.0-33.0); MEAN CORPUSCULAR HGB CONC 29.4 g/dL (32.0-36.0); MEAN CORPUSCULAR VOLUME 91.3 fL (79-99); NUCLEATED RED BLOOD CELLS 0.2 % (0.0-0.19); RED BLOOD CELL COUNT(AUTO) 2.87 MIL/uL (4.50-6.20); RED CELL DISTRIBUTION WIDTH 17.7 % (11.0-15.5)
--- NOTE | 2024-11-13 15:29 | PN ---
NEPHROLOGY PROGRESS NOTE Date/Time Patient Seen: Nov 13, 2024 Reason for Consultation: 15:22 SUBJECTIVE: This is an 88-year-old male with a past medical history of atrial fibrillation on chronic anticoagulation, coronary artery disease, aortic stenosis, diabetes mellitus type 2, COPD, hyperlipidemia, chronic kidney disease, dementia, hypothyroidism, history of osteomyelitis and history of ulcers on his heels and midfoot. Patient [facility]24 under hospice care. Family decided to revoke hospice due to patient's declining condition. He was noted with elevated BUN/creatinine, hypernatremia. We has been consulted for renal failure. Renal function remains elevated Sodium today was 160 Renal ultrasound showed obscured right kidney. Left kidney is normal in size and echogenicity and vascularity. No hydronephrosis Rivas catheter in place. Urine culture positive for gram negative roods He has been started on antibiotics. He was seen in the medical floor, in no acute distress He continues to ask for water No family at the bedside Condition is critical and guarded REVIEW OF SYSTEMS: Unable to obtain due to patient's status PHYSICAL EXAM: GENERAL: Lethargic No acute distress. Well-nourished. EYES: EOMI. Anicteric. HENT: Moist mucous membranes. No scleral icterus. No cervical lymphadenopathy. LUNGS: Clear to auscultation bilaterally. No accessory muscle use. CARDIOVASCULAR: Regular rate and rhythm. No murmur. No JVD. ABDOMEN: Soft, non-tender and non-distended. No palpable masses. EXTREMITIES: No edema. Non-tender. SKIN: No rashes or lesions. Warm. NEUROLOGIC: No focal neurological deficits. CN II-XII grossly intact, but not individually tested. PSYCHIATRIC: Cooperative. Appropriate mood and affect. LABORATORY: [ ] Hematology Labs: Test 11/13/24 09:09 11/13/24 07:18 Range/Units White Blood Count 16.0 H 4.8-10.8 K/uL Red Blood Count 2.97 L 4.50-6.20 MIL/uL Hemoglobin 7.9 L 14.0-18.0 g/dL Hematocrit 27.2 L 42-54 % Mean Corpuscular Volume 91.6 79-99 fL Mean Corpuscular Hemoglobin 26.6 L 27.0-33.0 pg Mean Corpuscular Hemoglobin Concent 29.0 L 32.0-36.0 g/dL Red Cell Distribution Width 17.6 H 11.0-15.5 % Platelet Count 204 130-400 K/uL Mean Platelet Volume 9.1 7.5-10.5 fL Nucleated Red Blood Cells 0.1 0.0-0.19 % Immature Granulocyte % (Auto) 5.3 H 0-1 % Neutrophils (%) (Auto) 79.7 H 40.0-77.0 % Lymphocytes (%) (Auto) 7.5 L 21.0-51.0 % Monocytes (%) (Auto) 3.9 3.0-13.0 % Eosinophils (%) (Auto) 3.1 0.0-8.0 % Basophils (%) (Auto) 0.5 0.0-5.0 % Neutrophils # (Auto) 12.0 H 1.8-7.7 K/uL Lymphocytes # (Auto) 1.1 1.0-4.8 K/uL Monocytes # (Auto) 0.6 0.1-1.0 K/uL Eosinophils # (Auto) 0.46 0.00-0.70 K/uL Basophils # (Auto) 0.07 0.00-0.20 K/uL Absolute Immature Granulocyte (auto 0.80 0-1 K/uL Chemistry Labs: Test 11/13/24 11:10 11/13/24 07:18 11/12/24 06:57 11/11/24 17:00 Range/Units Whole Blood Glucose 204 H 70-110 MG/DL Sodium Level 160 *H 136-145 mmol/L Potassium Level 3.4 L 3.5-5.1 mmol/L Chloride Level 111 101-111 mmol/L Carbon Dioxide Level 29 21-32 mmol/L Blood Urea Nitrogen 161 *H 7-18 mg/dL Creatinine 11.9 *H 0.5-1.3 mg/dL Glomerular Filtration Rate Calc 4 >90 mL/min Random Glucose 205 H 70-105 mg/dL Uric Acid 17.0 H 2.6-7.2 mg/dL Total Calcium 7.5 L 8.5-10.1 mg/dL Phosphorus Level 8.0 H 2.5-4.9 mg/dL Magnesium Level 1.80 1.80-2.40 mg/dL Iron Level 45 #L 65-175 mcg/dL Total Iron Binding Capacity 118 L 250-450 mcg/dL Percent Iron Saturation 38.1 30-44 % Ferritin 864 H 30-400 ng/mL Total Bilirubin 0.4 # 0.2-1.0 mg/dL Aspartate Amino Transf (AST/SGOT) 35 10-37 U/L Alanine Aminotransferase (ALT/SGPT) 7 L 12-78 U/L Alkaline Phosphatase 77 50-136 U/L Total Protein 6.7 6.0-8.3 g/dL Albumin 1.7 L 3.5-5.0 g/dL Free Thyroxine (T4) Direct 0.38 L 0.76-1.46 ng/dL Hemoglobin A1c 7.4 H 4.8-5.6 % Thyroid Stimulating Hormone (TSH) 26.56 #H 0.36-3.74 uIU/mL Lactic Acid Level 1.8 0.8-2.5 mmol/L Total Creatine Kinase 34 21-232 U/L Troponin I High Sensitivity 55.1 4-75 ng/L B-Type Natriuretic Peptide 839 H 0-100 pg/mL Procalcitonin 1.14 H 0.05-0.5 ng/mL Coagulation Labs: Test 11/12/24 06:57 Range/Units Prothrombin Time 12.8 H 9.6-11.6 SEC Prothromb Time International Ratio 1.16 H 0.85-1.15 DIAGNOSTICS / RADIOLOGY: REASON: dilated left pupil ORDERING PHYSICIAN: MIKE HERRMANN PROCEDURE: HEAD WO - CT HEAD/BRAIN W/O CONTRAST CT HEAD/BRAIN W/O CONTRAST HISTORY: Dilated left pupil COMPARISON: None TECHNIQUE: Multiple sequential axial images of the head were obtained from the base of the skull through vertex. Patient was not given contrast through intravenous route. FINDINGS: The ventricles and extraventricular CSF spaces are dilated consistent with cerebral atrophy. Nonspecific white matter changes seen. Encephalomalacia changes are seen in the left frontal lobe. There is no midline shift, mass effect or herniation. No acute intracranial bleed is seen. Visualized portion of the paranasal sinuses are grossly within normal limits. IMPRESSION: 1. No acute intracranial bleed is seen. 2. Atrophy with white matter changes. Encephalomalacia changes are noted of the left frontal lobe. CT was performed with one or more following dose reduction techniques: automated exposure control, adjustment of the mA and kv according to patient's size, or use of a iterative reconstruction technique. DICTATED BY: CARROLL KEENE MD DATE: 11/12/24 6976 REASON: renal failure, r/o hydronephrosis ORDERING PHYSICIAN: NAHID RICCI MD PROCEDURE: ABD PEL WO - CT ABDOMEN/PELVIS W/O CONTRAST Exam Type: CT ABDOMEN/PELVIS W/O CONTRAST Clinical Information: renal failure, r/o hydronephrosis Comparison: None CT Dose Index (CTDI): 10.20 mGy Dose Length Product (DLP): 530.00 total mGy-cm PROTOCOL: Routine noncontrast helical scanning of the abdomen and pelvis was performed at 5mm collimation. Findings: No evidence of nephro or ureterolithiasis is found. No hydronephrosis or ureteral dilatation is seen. Ill-defined densities of the left upper lobe, lingula and left lower lobe seen consistent with pneumonia. Coronary arterial and cardiac valvular calcifications are identified. The stomach is unremarkable. It shows no wall thickening. No gross ulceration is seen. It is not overly distended. There are no surrounding inflammatory changes. No wall lesions are identified to suggest cancer. The spleen is unremarkable except for benign calcifications. It is not enlarged. The pancreas shows normal anatomy. It is not fatty replaced. It shows no lesions. The pancreatic duct is not dilated. The gallbladder is surgically absent. The adrenal glands are unremarkable. There is no enlargement. No lesions are noted. The liver is unremarkable. It shows no focal masses. The appendix is unremarkable. It shows no evidence of inflammation. No appendicolith is seen. The small bowel is unremarkable. There is no evidence of dilatation to suggest obstruction. No evidence of adynamic ileus is seen. There is no small bowel wall thickening to suggest enteritis. The colon is unremarkable. The urinary bladder is unremarkable. There is no wall thickening to suggest tumor or inflammation. There are no intraluminal calculi. There are no diverticula. There is no evidence of chronic bladder outlet obstruction. There is no evidence of urinary bladder distention to suggest urinary retention. The other pelvic structures are unremarkable. The bony and vascular structures are unremarkable for the patient's age. IMPRESSION: Left-sided pneumonia. Follow-up to complete radiographic resolution recommended. Other chronic findings as noted. This study was performed using dose reduction techniques to include automated exposure control and/or adjustment of the mA and/or kV according to patient size. DICTATED BY: HENRY FRANKS MD DATE: 11/12/24 1527 REASON: renal failure ORDERING PHYSICIAN: NAHID RICCI MD PROCEDURE: RENAL - US RENAL SONOGRAM Exam Type: US RENAL SONOGRAM Clinical Information: renal failure Comparison: None Findings and impression: Right kidney is obscured. Left kidney is normal in size and echogenicity and vascularity. No hydronephrosis. DICTATED BY: HENRY FRANKS MD DATE: 11/12/24 1233 REASON: sepsis ORDERING PHYSICIAN: NAHID RICCI MD PROCEDURE: CXR1VW - CHEST 1VW Exam Type: CHEST 1VW Clinical Information: sepsis Comparison: None Findings: Status post median sternotomy. Ill-defined infiltrates of the left lower lobe are seen consistent with pneumonia. . The heart is large in size. The bony and soft tissue structures show no worrisome pathology. IMPRESSION: Findings consistent with pneumonia. Follow-up is advised. DICTATED BY: HENRY FRANKS MD DATE: 11/12/24 1052 REASON: sepsis ORDERING PHYSICIAN: NAHID RICCI MD PROCEDURE: ABD 1VW - ABD 1VW Exam Type: ABD 1VW Clinical Information: sepsis Comparison: None Findings: Abdomen demonstrates no evidence of pathologic calcification or soft tissue mass. There are no radiopacities to suggest calculous disease. The intestinal gas pattern is within normal limits without evidence of dilatation to suggest obstruction or adynamic ileus. The bony structures are unremarkable. There is residual contrast within bowel. IMPRESSION: Normal abdomen. DICTATED BY: HENRY FRANKS MD DATE: 11/12/24 1036 REASON: hypoxia ORDERING PHYSICIAN: ELIJAH FERNANDEZ DO PROCEDURE: CXR1VW - CHEST 1VW FRONTAL CHEST RADIOGRAPH INDICATION: hypoxia COMPARISON: 11/10/2024 FINDINGS/IMPRESSION: medical intern leads overlie the field of view. Median sternotomy wires are in appropriate alignment. Patient positioning is not optimal, but the radiologic examination is still believed to be of reasonable diagnostic quality. Stable heart size without pulmonary vascular congestion. Unchanged left lung greater than right midlung pulmonary edema or other airspace disease, without pneumothorax. DICTATED BY: DARLENE DEAN MD DATE: 11/11/24 1723 ASSESSMENT: Hyponatremia Acute renal failure COPD exacerbation Pulmonary edema Uncontrolled diabetes mellitus type 2 Leukocytosis Atrial fibrillation Coronary artery disease Hypothyroidism Dementia PLAN: Labs, diagnostic, radiologic exams reviewed and interpreted by myself and supervising physician. We have reviewed external records in detail There is no need for emergent renal replacement therapy at this time Continue with D5W for hypernatremia Keep NPO, order speech evaluation Patient may benefit from NGT placement if dysphagia is present. Recommend urology follow up for Rivas catheter management Continue with renally dose antibiotics as per ID We will continue to monitor the patient closely Require close monitoring of renal function and electrolytes Order CBC, CMP, and electrolytes in am BiPAP as necessary, for respiratory distress Monitor blood pressure adjust medication doses as needed Continue with the renally dose antibiotic Avoid hypotensive episodes May use Dilaudid 0.5 mg IV every 6 hours as needed for severe pain Monitor blood sugars Strict intake, output, and daily weight should be monitored Please renally adjust medications Avoid nephrotoxic and nonsteroidal drugs Avoid contrast if possible Will continue to monitor renal function, anemia, electrolytes Treatment plan discussed with patient Questions were answered We have discussed with the other team physicians in detail about the care plan We will continue to monitor the patient closely ATTESTATION BY PHYSICIAN I have seen and examined the patient. I reviewed the documentation, medical decision making, and treatment plan as noted by the mid-level provider above. I agree with the findings and plan of care. DAXA NARVAEZ MD, [facility] Nov 13, 2024 15:29
--- NOTE | 2024-11-13 16:00 | NUR ---
BEDSIDE SWALLOW EVAL COMPLETED. No s/s of aspiration. Recommend pureed solids, thin liquids, and meds crushed in pureed carrier. Compensatory strategies 1. Sit upright 2. slow oral intake 3. Alt between solids and liquids RO[employer] reviewed results and recommendations with patient and nurse Arlette. RO[employer] educated patient and family on risk and consequences of aspiration. Speech Therapy not warranted at this time. All questions answered. Addendum: 11/13/24 at 1720 by GALA LEONARD Amended: Links added.
[2024-11-13] MEDS ORDERED: FURO20TA4 PO (17:07)
[2024-11-13] MEDS ORDERED: DONE10TA43 PO (17:07)
[2024-11-13] MEDS ORDERED: ZOLP5TAB8 PO (17:07)
[2024-11-13] MEDS ORDERED: DULA0.75 SQ (17:07)
[2024-11-13] MEDS ORDERED: FERR-82 PO (17:07)
[2024-11-13] MEDS ORDERED: AUD NEB (17:07)
[2024-11-13] MEDS ORDERED: LOSA1TAB37 PO (17:07)
[2024-11-13] MEDS ORDERED: LEVO100C4 PO (17:07)
[2024-11-13] MEDS ORDERED: SERT-440 PO (17:07)
[2024-11-13] MEDS ORDERED: MEMA10TA21 PO (17:07)
[2024-11-13] MEDS ORDERED: ROSU20TA98 PO (17:07)
[2024-11-13] MEDS ORDERED: INSU100I24 SQ (17:07)
[2024-11-13] MEDS ORDERED: ALBUTEROL 0.083% 2.5 MG/3 ML INH IH PRN (17:30)
[2024-11-13] MEDS: ARTIFICAL TEARS SOL 15 ML OU PRN (17:32)
[2024-11-13] MEDS: FERROUS SULFATE 325 MG TABLET.DR PO SCH (17:34)
[2024-11-13] MEDS ORDERED: ALBUTEROL 0.083% 2.5 MG/3 ML INH IH SCH (18:00)
--- NOTE | 2024-11-13 18:46 | NUR ---
UROLOGY CONSULT Dr. Hogan called back and stated he is currently not nurse's companion, but that he would need more information concerning the patient's history and reasoning/evidence of why urinary catheter was placed. Patient is not able to give adequate medical history.
--- NOTE | 2024-11-13 20:47 | NUR ---
Orders Patient alert to self. Patient has pulled out 2 peripheral IV's in the past hour. Patient receiving IVF for elevated sodium level and on a cardizem drip for irregular heart rate of 100-110. Patient continues to remove telemetry electrodes, nasal canula, and gown. Orders for mittens not granted by Luis Chase NP. Alternative option given. .25mg xanax x1 dose now.
[2024-11-13 21:14] LABS: HEMATOCRIT 26.9 % (42-54); MEAN CORPUSCULAR HEMOGLOBIN 26.2 pg (27.0-33.0); MEAN CORPUSCULAR VOLUME 90.3 fL (79-99); NUCLEATED RED BLOOD CELLS 0.3 % (0.0-0.19); RED BLOOD CELL COUNT(AUTO) 2.98 MIL/uL (4.50-6.20); RED CELL DISTRIBUTION WIDTH 17.5 % (11.0-15.5); WHITE BLOOD COUNT (AUTO) 19.7 K/uL (4.8-10.8)
[2024-11-13] MEDS: CHLORHEXIDINE GLUCONATE 15 ML MOUTHWASH MM SCH (21:29)
[2024-11-13] MEDS: atorVAStatin 20 MG TABLET PO SCH (21:30)
[2024-11-13] MEDS: ALPRAZolam 0.25 MG TABLET PO ONE (21:39)
--- NOTE | 2024-11-13 23:52 | CONS ---
HISTORY OF PRESENT ILLNESS: The patient is an 88-year-old male who is known to me from previous encounters at the hospital. I followed the patient in the past at the [facility] and [facility]. He is a senior care resident from [facility]. He was admitted to the hospital on 11/11/2024 due to hypoxia. He has a history of dementia, urinary tract infection, bedbound status. He is being followed now for elevated renal function. Apparently, the patient was recently placed on hospice. Apparently, the hospice has been revoked but the patient is DNR/DNI status. ALLERGIES: He has no known drug allergies. He is currently receiving IV meropenem. He is afebrile at 98.4, pulse 104, respirations 22, blood pressure 110/47. He has a problem list that includes atrial fibrillation, coronary artery disease, peripheral vascular disease, chronic obstructive pulmonary disease, dementia, depression, diabetes type 2, high cholesterol, hypertension, hypothyroidism, renal insufficiency currently with a BUN and a creatinine of 161 and 11.9. His blood sugar is 190. PAST MEDICAL HISTORY: Also significant for cellulitis, osteomyelitis to his left fifth toe, dysphagia, ulcer to the left fifth toe, ulcer to the left heel. The patient's blood cultures, no growth x 48 hours. Urine cultures preliminary greater than 100,000 Gram-negative rods. REVIEW OF SYSTEMS: Could not be obtained. PHYSICAL EXAMINATION: EXTREMITIES: Today shows he has edema, +1 to his feet bilaterally. His feet are cool. His digits are ruborous. He has nonpalpable pedal pulses. He has dry gangrene to the left fifth toe. He has a dry eschar to the plantar aspect of the fifth metatarsophalangeal joint. There is no odor. There is no pus. There is no abscesses. There is no cellulitis. He has a dry hemorrhagic eschar to the posterior aspect of the left heel. No exposure of deeper structures, no abscess formation, no cellulitis. ASSESSMENT: An 88-year-old male with atrial fibrillation, coronary artery disease, peripheral vascular disease, aortic stenosis, diabetes type 2, dementia, chronic obstructive pulmonary disease, hyperlipidemia, chronic kidney disease, hypothyroidism, history of osteomyelitis of left fifth toe, left heel ulcer. The patient family decided to revoke hospice. The patient is being followed now for hyponatremia, acute renal failure, chronic obstructive pulmonary disease, pulmonary edema, uncontrolled diabetes, leukocytosis, atrial fibrillation, coronary artery disease, hypothyroidism, and dementia. The patient is being followed by the Nephrology Service. The patient is being followed by the primary care service. PLAN: We will continue with the IV Merrem. We will continue with offloading measures. We will begin Betadine dressings to the left fifth toe and left heel. We will continue to follow the patient closely while in-house. TID: [id number] RECEIPT: [id number]
[2024-11-14] VITALS (13 sets, daily range): BP systolic 88–112; BP diastolic 34–71; PULSE 64–101; RESP 11–22; TEMP 96.8–98.6; O2SAT 92–95
[2024-11-14 05:10] LABS: HEMATOCRIT 24.7 % (42-54); MEAN CORPUSCULAR HGB CONC 28.7 g/dL (32.0-36.0); MEAN CORPUSCULAR VOLUME 90.5 fL (79-99); NUCLEATED RED BLOOD CELLS 0.3 % (0.0-0.19); PLATELET COUNT (AUTO) 204 K/uL (130-400); RED BLOOD CELL COUNT(AUTO) 2.73 MIL/uL (4.50-6.20); RED CELL DISTRIBUTION WIDTH 17.6 % (11.0-15.5); WHITE BLOOD COUNT (AUTO) 20.2 K/uL (4.8-10.8)
[2024-11-14 05:40] LABS: EOSINOPHILS % (MANUAL) 9 % (1-6); LYMPHOCYTES % (MANUAL) 6 % (22-44); MAN.DIFF COMMENT-IMPRESSION MANUAL DIFFERENTIAL; MONOCYTES % (MANUAL) 7 % (2-9); SEGMENTED NEUTROPHILS % 78 % (40-70); TOTAL CELLS COUNTED 100
[2024-11-14 05:43] LABS: ALBUMIN 1.6 g/dL (3.5-5.0); ASPARTATE AMINOTRANSFERASE 30 U/L (10-37); BILIRUBIN,TOTAL 0.4 mg/dL (0.2-1.0); CARBON DIOXIDE 31 mmol/L (21-32); CHLORIDE 105 mmol/L (101-111); GLOMERULAR FILTR. RATE CALC 4 mL/min (>90); GLUCOSE,RANDOM 184 mg/dL (70-105); PHOSPHORUS 6.9 mg/dL (2.5-4.9); SODIUM SERUM 150 mmol/L (136-145); TOTAL PROTEIN, SERUM 6.3 g/dL (6.0-8.3)
[2024-11-14 05:47] LABS: ALANINE AMINOTRANSFERASE < 6 U/L (12-78)
[2024-11-14 05:48] LABS: CREATININE 11.2 mg/dL (0.5-1.3); UREA NITROGEN, BLOOD 147 mg/dL (7-18)
--- NOTE | 2024-11-14 05:55 | NUR ---
Luis Chase paged to notify of BUN of 147, Potassium level of 3.0, magnesium level of 1.5. Pending call back.
[2024-11-14] MEDS: levoTHYROxine 100 MCG TABLET PO SCH (06:17)
[2024-11-14] MEDS: MEROPENEM 500MG 500 MG VIAL IV SCH (09:39)
[2024-11-14] MEDS: doNEPEZil HCL 5 MG TAB PO SCH (09:39)
[2024-11-14] MEDS: SERTraline HCL 50 MG TABLET PO SCH (09:40)
[2024-11-14] MEDS: MEMANtine HCL 5 MG TABLET PO SCH (09:40)
--- NOTE | 2024-11-14 10:18 | PN ---
[facility] PROGRESS NOTE Date of Service: Nov 14, 2024 Time of Service: 10:11 SUBJECTIVE: 11/12 patient is seen and examined at bedside, case discussed with the RN. No family members at bedside during my visit. BP 109/54, patient is still tachycardic, heart rate between 105-117, atrial fibrillation. Patient is saturating 97% on 3 L via nasal cannula. Blood tests reviewed, CBC with a hem oglobin 8.4, hematocrit 29.4, WBC 15.4, platelet count of 253. CMP with sodium 160, potassium 3.5, BUN of 159, creatinine 2.5. Chest x-ray showing left lung greater than right mid lung pulmonary edema or other space disease, without pneumothorax. 11/13 patient seen and examined at bedside, case discussed with RN, no acute events overnight, patient more awake today compared to yesterday. He remains on Cardizem drip. Still mildly tachycardic, BP stable. Rivas catheter inserted, creatinine 11.9. The patient with a history of hypercoagulable state, not a candidate for anticoagulation secondary to history of recurrent anemia. Patient remains on metoprolol 12.5 mg p.o. b.i.d.. Patient getting broad-spectrum IV antibiotics at the time my visit, continue to follow results of septic workup. We will attempt to call the daughter over the phone to discuss considering hospice services as the prognosis of the patient is poor and guarded. 11/14 patient is seen and examined at bedside this morning, case discussed with the RN, no acute events overnight. During my visit the patient is awake, however due to advanced dementia not verbalizing, he does not following simple commands. 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 Total urine output during last night 12 hours shift 100 mL. He remains on Cardizem drip. Heart rate of 101, BP 105/55, afebrile. On nasal cannula at 3 L saturating 93-96%. WBC 20.2. Hemoglobin 7.1, hematocrit 24.7. Sodium slowly trending down 150. Potassium 3.0. Creatinine remains elevated 11.2. Magnesium 1.5. Urine culture positive for Pseudomonas aeruginosa. Patient getting IV antibiotics at the time of my visit. Daughter not present at the bedside during my visit, she has been updated over the phone since admission. All questions has been answered. I recommended to consider hospice as the patient a candidate for renal replacement therapy. We will discuss again today. REVIEW OF SYSTEMS CONSTITUTIONAL: Denies fevers, chills, or night sweats. No unintentional weight loss reported. NEUROLOGICAL: Denies headache, amaurosis fugax, motor weakness, sensory deficit, vertigo/spinning sensation, gait abnormalities, or tremors. ENT: No hearing loss, otalgia, otorrhea, rhinitis, rhinorrhea, hoarseness, or sore throat. CARDIOVASCULAR: Denies any exertional angina, dyspnea on exertion, orthopnea, paroxysmal nocturnal dyspnea, palpitations, life-threatening arrhythmias, claudication. PULMONARY: Denies any shortness of breath, cough, phlegm/sputum, hemoptysis, pleuritic chest pain. SLEEP: Denies morning headaches, daytime somnolence or napping. Denies difficulty falling asleep, staying asleep, waking from sleep. Denies knowledge of snoring. GASTROINTESTINAL: Denies any type of dysphagia to either liquids or solids. Denies nausea, vomiting, pyrosis, early satiety, abdominal pain, diarrhea, constipation, or changes in stool consistency or caliber. Denies coffee-ground emesis, hematemesis, hematochezia, or melanotic stools. GENITOURINARY: Denies frequency, urgency, nocturia, hematuria or incontinence (Storage/Irritative symptoms.) Low urinary stream, straining to void, urinary intermittency or hesitancy, splitting of the voiding stream, terminal dribbling. ENDOCRINOLOGIC: Denies polyuria, polydipsia, polyphagia or heat/cold intolerances. HEMATOLOGIC: Denies thrombophilia/previous clots, or coagulopathy/bleeding disorders. ONCOLOGIC: Denies personal history of malignancy. DERMATOLOGIC: Denies rashes or pruritus. PSYCHIATRIC: Denies any suicidal or homicidal ideation. Denies hallucinations. PHYSICAL EXAM GENERAL APPEARANCE: The patient comfortably in bed, not verbalizing, withdrawing to painful stimulation, looks very dehydrated. NEUROLOGICAL: Cranial nerves II-XII grossly intact. Motor is 5/5 in bilateral upper and lower extremities proximal to distal. No sensory deficits. HEENT: Face is symmetric. Pupils are equal and reactive. Extraocular movements are intact. NECK: Supple. No JVD. No thyromegaly. No submental, submandibular, pre- /postauricular, occipital or supraclavicular lymphadenopathy. CHEST: Normal chest expansion. No Telemetry. LUNGS: Absence of any rales, rhonchi or any wheezing. CARDIOVASCULAR: Regular. S1 and S2 normal. No appreciable rubs, murmurs or gallops. ABDOMEN: Soft, nontender, and nondistended. There is no rebound, voluntary guarding, or rigidity. : Deferred. No Rivas. EXTREMITIES: Non-edematous and not cyanotic. No clubbing. Good capillary refill. SKIN: No skin breakdown. Vital Signs (last 8hr) Date Time Temp Pulse Resp B/P (MAP) Pulse Ox O2 Delivery O2 Flow Rate FiO2 11/14/24 07:45 97.5 101 11 88/34 93 11/14/24 07:04 90 18 N/Cannula Low lpm 3.0 32 11/14/24 07:04 90 20 11/14/24 06:32 102 105/55 11/14/24 03:30 97.5 87 20 112/47 96 Room Air LABS: Laboratory: Test 11/14/24 05:41 11/14/24 04:49 11/13/24 07:18 11/12/24 11:42 Range/Units Whole Blood Glucose 181 H 70-110 MG/DL White Blood Count 20.2 H 4.8-10.8 K/uL Red Blood Count 2.73 L 4.50-6.20 MIL/uL Hemoglobin 7.1 L 14.0-18.0 g/dL Hematocrit 24.7 L 42-54 % Mean Corpuscular Volume 90.5 79-99 fL Mean Corpuscular Hemoglobin 26.0 L 27.0-33.0 pg Mean Corpuscular Hemoglobin Concent 28.7 L 32.0-36.0 g/dL Red Cell Distribution Width 17.6 H 11.0-15.5 % Platelet Count 204 130-400 K/uL Mean Platelet Volume 9.2 7.5-10.5 fL Segmented Neutrophils % 78 H 40-70 % Lymphocytes % (Manual) 6 L 22-44 % Monocytes % (Manual) 7 2-9 % Eosinophils % (Manual) 9 H 1-6 % Nucleated Red Blood Cells 0.3 H 0.0-0.19 % Differential Comment MANUAL DIFFERENTIAL White Cell Morphology Comment Platelet Morphology Comment See comments Red Blood Cell Morphology ANISO 1+ Sodium Level 150 H 136-145 mmol/L Potassium Level 3.0 *L 3.5-5.1 mmol/L Chloride Level 105 101-111 mmol/L Carbon Dioxide Level 31 21-32 mmol/L Blood Urea Nitrogen 147 *H 7-18 mg/dL Creatinine 11.2 *H 0.5-1.3 mg/dL Glomerular Filtration Rate Calc 4 >90 mL/min Random Glucose 184 H 70-105 mg/dL Total Calcium 7.1 L 8.5-10.1 mg/dL Phosphorus Level 6.9 H 2.5-4.9 mg/dL Magnesium Level 1.50 L 1.80-2.40 mg/dL Total Bilirubin 0.4 0.2-1.0 mg/dL Aspartate Amino Transf (AST/SGOT) 30 10-37 U/L Alanine Aminotransferase (ALT/SGPT) < 6 L 12-78 U/L Alkaline Phosphatase 66 50-136 U/L Total Protein 6.3 6.0-8.3 g/dL Albumin 1.6 L 3.5-5.0 g/dL Immature Granulocyte % (Auto) 5.3 H 0-1 % Neutrophils (%) (Auto) 79.7 H 40.0-77.0 % Lymphocytes (%) (Auto) 7.5 L 21.0-51.0 % Monocytes (%) (Auto) 3.9 3.0-13.0 % Eosinophils (%) (Auto) 3.1 0.0-8.0 % Basophils (%) (Auto) 0.5 0.0-5.0 % Neutrophils # (Auto) 12.0 H 1.8-7.7 K/uL Lymphocytes # (Auto) 1.1 1.0-4.8 K/uL Monocytes # (Auto) 0.6 0.1-1.0 K/uL Eosinophils # (Auto) 0.46 0.00-0.70 K/uL Basophils # (Auto) 0.07 0.00-0.20 K/uL Absolute Immature Granulocyte (auto 0.80 0-1 K/uL Uric Acid 17.0 H 2.6-7.2 mg/dL Iron Level 45 #L 65-175 mcg/dL Total Iron Binding Capacity 118 L 250-450 mcg/dL Percent Iron Saturation 38.1 30-44 % Ferritin 864 H 30-400 ng/mL Free Thyroxine (T4) Direct 0.38 L 0.76-1.46 ng/dL Group A Streptococcus Rapid negative NEGATIVE Current Medications Medications (Trade) Dose Ordered Sig/Drew Route PRN Reason Start Time Stop Time Status Last Admin Dose Admin Acetaminophen (TYLenol 650MG SUPPOSITORY) 650 mg Q6H PRN RC MILD PAIN (1-3) 11/11/24 20:30 12/11/24 20:29 Albuterol (DUOneb) 1 UDVIAL [id number] IH 11/12/24 00:00 12/12/24 00:00 11/14/24 07:03 1 UDVIAL Albuterol Sulfate (Proventil 0.083% 2.5mg/3ml) 2.5 mg [id number] IH 11/13/24 18:00 11/13/24 17:37 DC Albuterol Sulfate (Proventil 0.083% 2.5mg/3ml) 2.5 mg [id number] PRN IH SHORTNESS OF BREATH 11/13/24 17:30 12/13/24 17:59 Artificial Tears (Artificial Tears) 1 DROP OR AD Q2H PRN OU DRY EYES 11/13/24 14:30 12/13/24 14:29 11/13/24 17:32 1 DROP Atorvastatin Calcium (LIPItor 20MG) 20 mg HS PO 11/13/24 21:00 12/13/24 20:59 11/13/24 21:30 20 MG Budesonide (Pulmicort 0.5 Mg/2ml) 0.5 mg BIDRESP IH 11/12/24 06:00 12/12/24 05:59 11/14/24 07:04 0.5 MG Ceftriaxone Sodium (ROCEphine 1G INJ) 1 gm Q24H IVPB 11/12/24 10:00 11/12/24 14:30 DC 11/12/24 09:55 1 GM Chlorhexidine Gluconate (Peridex) 15 ml TID MM 11/13/24 21:00 11/27/24 20:59 11/14/24 09:38 15 ML Dextrose 1,000 ml @ 100 mls/hr Q10H IV 11/13/24 13:30 12/13/24 13:29 11/14/24 05:28 100 MLS/HR Diltiazem HCl 125 mg/Sodium Chloride 125 ml @ 0 mls/hr PROTOCOL IV 11/12/24 11:00 12/12/24 10:59 11/14/24 06:32 5 MLS/HR Donepezil HCl (ARIcept 5MG TAB) 5 mg DAILY PO 11/14/24 09:00 12/14/24 08:59 11/14/24 09:39 5 MG Doxycycline Hyclate 250 ml @ 125 mls/hr Q12H IV 11/12/24 11:00 11/12/24 14:31 DC 11/12/24 11:03 125 MLS/HR Ferrous Sulfate (Ferrous Sulfate) 1 mg BIDMEALS PO 11/13/24 17:34 12/13/24 17:33 Home Med (Home Medication) (Dulaglutide (Trulicity) 0.5 ML) QWEEK SQ 11/20/24 09:00 12/20/24 08:59 Hydralazine HCl (APRESOLine 20MG INJ) 5 mg Q6H PRN IV ADMINISTER FOR SBP > 160 11/12/24 10:00 11/12/24 09:50 DC Hydralazine HCl (APRESOLine 20MG INJ) 5 mg Q6H PRN IV For:SBP above 160;DBP above 90 11/12/24 14:30 12/12/24 14:29 Hydralazine HCl (APRESOLine 20MG INJ) 10 mg Q6H PRN IV For:SBP above 160;DBP above 90 11/11/24 20:30 11/12/24 09:44 DC Insulin Human Regular (humuLIN R 100 UNIT/ML 3ML) INSULIN SLIDING SCAL... ACHS SQ 11/11/24 21:00 11/12/24 09:44 DC 11/12/24 09:26 3 UNIT Insulin Human Regular (humuLIN R 100 UNIT/ML 3ML) INSULIN SLIDING SCAL... ACHS SQ 11/12/24 16:30 12/12/24 16:29 11/14/24 06:18 2 UNIT Iron Sucrose (VenoFER) 100 mg DAILY IV 11/12/24 13:00 11/12/24 14:07 DC Iron Sucrose (VenoFER) 100 mg DAILY IV 11/12/24 14:30 11/14/24 09:01 DC 11/14/24 09:38 100 MG Levothyroxine Sodium (SYNTHroid 100MCG TAB) 100 mcg SYN PO 11/14/24 06:30 12/14/24 06:29 11/14/24 06:17 100 MCG Memantine (NAmenDA 5 MG TAB) 10 mg DAILY PO 11/14/24 09:00 12/14/24 08:59 11/14/24 09:40 10 MG Meropenem (Merrem 500mg) 500 mg Q12H9 IV 11/12/24 14:30 11/13/24 12:54 DC 11/13/24 09:46 500 MG Meropenem (Merrem 500mg) 500 mg Q24H IV 11/14/24 09:00 11/22/24 14:29 11/14/24 09:39 500 MG Metoprolol Tartrate (loprESSOR) 5 mg Q6H PRN IV INCREASED HEART RATE 11/12/24 10:00 12/12/24 09:59 Metoprolol Tartrate (loprESSOR) 12.5 mg BID PO 11/12/24 10:00 12/12/24 09:59 11/14/24 09:39 12.5 MG Morphine Sulfate (morPHINE 2MG SYG) 2 mg Q4H PRN IVP SEVERE PAIN (7-10) 11/11/24 20:30 11/12/24 09:44 DC Ondansetron HCl (zoFRAN 4MG INJ) 4 mg Q6H PRN IV NAUSEA/VOMITING 11/11/24 20:30 12/11/24 20:29 Pharmacy Profile Note (Pharmacy Communication) 1 each AD MISC 11/12/24 21:00 11/13/24 14:28 DC Sertraline HCl (ZOloft 50 mg tab) 100 mg DAILY PO 11/14/24 09:00 12/14/24 08:59 11/14/24 09:40 100 MG Sodium Chloride 1,000 ml @ 50 mls/hr Q20H IV 11/11/24 20:30 11/13/24 13:33 DC 11/13/24 11:53 50 MLS/HR Sodium Chloride 1,000 ml @ 120 mls/hr Q8H20M IV 11/12/24 08:30 11/12/24 08:27 DC Thiamine HCl (Vitamin B-1) 100 mg DAILY IVP 11/13/24 09:00 12/13/24 08:59 11/14/24 09:39 100 MG DIAGNOSTICS / RADIOLOGY: [ ] ASSESSMENT: Acute COPD exacerbation, POA Acute Pulmonary edema, POA NATASHA on CKD, POA Possible sepsis due to pneumonitis, POA UTI secondary to Pseudomonas aeruginosa, POA History of penile cancer, with the indwelling catheter in place Atrial fibrillation with a RVR Uncontrolled Diabetes mellitius type2, POA Leukocytosis, POA Hypernatremia, POA Hyperlipidemia Dementia Hypothyroidism Anemia of chronic disease can not exclude acute GI bleed PLAN: Patient to be admitted to the PCU Continue the patient on flat sorter processor Continue the patient on Cardizem drip Echocardiogram to evaluate ejection fraction LVEF 55-60% Continue to follow Cardiology input recommendation Renal function remains elevated, the patient with minimal urine output, not a candidate for renal replacement therapy. Urology consulted for possible exchange of catheter. Case discussed. Continue the patient on meropenem IV, continue to follow ID input and recommendations. We will discuss with the daughter again today to consider hospice services. NEURO: Minimize central acting medications as possible. Fall Precautions. Well lighted room through the day and minimize interruptions through the night to prevent acute delirium. PULMONARY: Supplemental 02 as needed BiPAP as necessary, for respiratory distress Titrate Fio2 to keep Spo2 > or = 90% DuoNebs and CPT as needed IS hourly while awake for pulmonary hygiene prn Out of bed to chair as tolerated Maintain aspiration precautions at all times CARDIOVASCULAR: Follow hemodynamics. Vital signs per facility protocol GI & NUTRITION: Continue nutritional support Aspirations precautions Prokinetic agents and laxatives as needed KIDNEYS & ELECTROLYTES: Strict monitoring of intake and output Daily weights Avoid nephrotoxic agents Monitor electrolytes and replace as needed Goal urine output of 30mL/hr or 0.5mL/kg/hr Medications to be dosed according to renal function. Avoid contrast if possible ENDOCRINE: Maintain blood glucose between 100-180 at all times. Insulin sliding scale for blood glucose management Hypoglycemia and hyperglycemia protocol in place INFECTIOUS DISEASE: Trend temperature, WBC and procalcitonin level Follow cultures, deescalate antibiotics as soon as possible. Panculture if new onset fever HEMATOLOGY & COAGULATION: Monitor H&H. Keep Hgb > 7 Transfuse 1 unit of PRBC for Hgb < 7 Transfuse 1 pack of platelets of platelets < 20, 000 Watch for any signs and symptoms of bleeding SKIN: Pressure ulcer prevention per facility protocol Specialty mattress as needed ORTHO/REHAB Continue PT/OT PRN: MEDICATIONS Tylenol 650 mg po every 4 hrs for fever zofran 4 mg IV every 6 hrs for n/v Hydralazine 5 mg IV every 4 hrs systolic pressure > 160 bowel regiment: lactulose 20 gm PO BID PRN constipation Supportive measures: Continue GI and DVT prophylaxis Disposition: Pending improvement in clinical condition. Patient may benefit from hospice services. We will discuss again with the daughter today. All questions answered time spent: > 35 min NAHID RICCI MD Nov 14, 2024 10:18
--- NOTE | 2024-11-14 10:52 | PN ---
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 T-max 97.5, blood pressure 88/34, pulse 101, respirations 20. White count is 20.2, H and H 71 and 24.7. The patient has been evaluated by the Cardiology Service. He is being followed for atrial fibrillation. He has a history of hypertension, dyslipidemia, diabetes, SVT with successful ablation coronary artery disease, status post CABG, critical aortic stenosis status post [facility] Trifecta bioprosthetic valve placement, chronic kidney disease stage V with a BUN and creatinine of 147 and 11.2. Chest x-rays demonstrate pneumonia. The patient is currently receiving the IV meropenem. The patient is a resident of [facility]. He has a history of dementia, urinary tract infection, bedbound status. The patient's urine cultures, pseudomonas aeruginosa sensitive to the meropenem that he is receiving. Blood cultures, no growth 48 hours. Apparently, the patient's hospice has been revoked, but the patient is DNR/DNI status. OBJECTIVE: On examination today shows he has edema, +1 to his feet. His feet are cool. His digits are ruborous. He has nonpalpable pedal pulses. He has dry gangrene to the left fifth toe. He has a dry eschar to the plantar aspect of the left fifth metatarsophalangeal joint. There is no odor. There is no pus. There is no abscess formation, no cellulitis. He has a dry hemorrhagic eschar to the posterior heel on the left. No exposure of deeper structures. No odor, no pus, no abscess, no cellulitis. ASSESSMENT: An 88-year-old male with stage V renal insufficiency, being followed for atrial fibrillation, coronary artery disease, peripheral vascular disease, aortic stenosis, type 2 diabetes, dementia, chronic obstructive pulmonary disease, hyperlipidemia, chronic kidney disease, hypothyroidism, history of left fifth toe osteomyelitis, left heel ulcer and. Apparently the patient's family have revoked his hospice status. The patient is being followed for hyponatremia, acute renal failure, chronic obstructive pulmonary disease, pulmonary edema, uncontrolled diabetes, leukocytosis, atrial fibrillation, coronary artery disease, hypothyroidism and dementia The patient is being followed by the Nephrology Service. The patient is being followed by Primary Care Service. The patient is being followed by Cardiology Service. PLAN: We will continue with the Merrem. Continue with the offloading measures. Continue with Betadine dressings to the left heel and left fifth toe. Follow the patient closely while in-house. TID: [id number] RECEIPT: [id number]
[2024-11-14] MEDS ORDERED: MEROPENEM 500MG 500 MG VIAL IV SCH (13:30)
--- NOTE | 2024-11-14 14:30 | PN ---
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 The patient was recently hospitalized 10/19- for left foot osteomyelitis, UTI, acute renal failure, and failure to thrive. He then had an ED visit on 11/10/2024 for UTI and leukocytosis. On this occasion, he is being managed for sepsis, septic shock and pneumonia and in addition he has developed atrial fibrillation with rapid ventricular response. The patient has been hypotensive but is tolerating diltiazem at 5 milligrams/hour and metoprolol tartrate 12.5 mg p.o. b.i.d.. He has had acute on chronic renal failure with admission BUN of 159 and creatinine of 12.5 with estimated GFR of 4 (previously creatinine was 5.2 on 10/20/2024). He is not considered a candidate for renal replacement therapy and at this point, primary team is attempting to discuss overall management with the daughter and consider hospice care. He was also noted to have hypothyroidism with TSH of 26.5. Currently on diltiazem 5 milligrams/hour and metoprolol 12.5 mg p.o. b.i.d., his heart rate has been in the 90-100 beat per minute range. Physical Examination: GENERAL: Patient is confused, poorly communicative and bed-bound but no acute distress. HEAD: Normal with no signs of head trauma. EYES: PERRLA, EOMI, conjunctiva and sclera normal. NECK: Supple without JVD. There is no tenderness, lymphadenopathy, or masses. No thyromegaly. Normal carotid upstrokes without bruits. LUNGS: There are diminished breath sounds at the bases bilaterally. HEART: Irregularly irregular underlying rhythm, normal S1 and S2 and a 2/6 early peaking systolic ejection murmur at the right upper sternal border. VASC: Pedal pulses are difficult to palpate. There is a dressing to the left fo ot, trace of pedal edema EXT: No clubbing, cyanosis. Ecchymosis to the upper extremities is noted NEURO: Awakens to verbal command. Speech is incoherent and uncooperative with the exam. Laboratory: Hematology Labs: Test 11/14/24 04:49 11/13/24 07:18 Range/Units White Blood Count 20.2 H 4.8-10.8 K/uL Red Blood Count 2.73 L 4.50-6.20 MIL/uL Hemoglobin 7.1 L 14.0-18.0 g/dL Hematocrit 24.7 L 42-54 % Mean Corpuscular Volume 90.5 79-99 fL Mean Corpuscular Hemoglobin 26.0 L 27.0-33.0 pg Mean Corpuscular Hemoglobin Concent 28.7 L 32.0-36.0 g/dL Red Cell Distribution Width 17.6 H 11.0-15.5 % Platelet Count 204 130-400 K/uL Mean Platelet Volume 9.2 7.5-10.5 fL Segmented Neutrophils % 78 H 40-70 % Lymphocytes % (Manual) 6 L 22-44 % Monocytes % (Manual) 7 2-9 % Eosinophils % (Manual) 9 H 1-6 % Nucleated Red Blood Cells 0.3 H 0.0-0.19 % Differential Comment MANUAL DIFFERENTIAL White Cell Morphology Comment Platelet Morphology Comment See comments Red Blood Cell Morphology ANISO 1+ Immature Granulocyte % (Auto) 5.3 H 0-1 % Neutrophils (%) (Auto) 79.7 H 40.0-77.0 % Lymphocytes (%) (Auto) 7.5 L 21.0-51.0 % Monocytes (%) (Auto) 3.9 3.0-13.0 % Eosinophils (%) (Auto) 3.1 0.0-8.0 % Basophils (%) (Auto) 0.5 0.0-5.0 % Neutrophils # (Auto) 12.0 H 1.8-7.7 K/uL Lymphocytes # (Auto) 1.1 1.0-4.8 K/uL Monocytes # (Auto) 0.6 0.1-1.0 K/uL Eosinophils # (Auto) 0.46 0.00-0.70 K/uL Basophils # (Auto) 0.07 0.00-0.20 K/uL Absolute Immature Granulocyte (auto 0.80 0-1 K/uL Chemistry Labs: Test 11/14/24 13:14 11/14/24 04:49 11/13/24 07:18 Range/Units Whole Blood Glucose 144 H 70-110 MG/DL Sodium Level 150 H 136-145 mmol/L Potassium Level 3.0 *L 3.5-5.1 mmol/L Chloride Level 105 101-111 mmol/L Carbon Dioxide Level 31 21-32 mmol/L Blood Urea Nitrogen 147 *H 7-18 mg/dL Creatinine 11.2 *H 0.5-1.3 mg/dL Glomerular Filtration Rate Calc 4 >90 mL/min Random Glucose 184 H 70-105 mg/dL Total Calcium 7.1 L 8.5-10.1 mg/dL Phosphorus Level 6.9 H 2.5-4.9 mg/dL Magnesium Level 1.50 L 1.80-2.40 mg/dL Total Bilirubin 0.4 0.2-1.0 mg/dL Aspartate Amino Transf (AST/SGOT) 30 10-37 U/L Alanine Aminotransferase (ALT/SGPT) < 6 L 12-78 U/L Alkaline Phosphatase 66 50-136 U/L Total Protein 6.3 6.0-8.3 g/dL Albumin 1.6 L 3.5-5.0 g/dL Uric Acid 17.0 H 2.6-7.2 mg/dL Iron Level 45 #L 65-175 mcg/dL Total Iron Binding Capacity 118 L 250-450 mcg/dL Percent Iron Saturation 38.1 30-44 % Ferritin 864 H 30-400 ng/mL Free Thyroxine (T4) Direct 0.38 L 0.76-1.46 ng/dL Diagnostics / Radiology: 2D echocardiogram 11/12/2024: Conclusion The left ventricle is normal size. The LVEF is 55-60%. The LV diastolic function was unable to be assessed. E/A flow is fused. The right ventricle is normal size. The right ventricular systolic function is reduced. The left atrium size is normal. The right atrium size is normal. Prosthetic aortic valve is present. No paravalvular/perivalvular leak noted. Prosthetic aortic valve gradients are elevated maximum pressure gradient of 38 mmHg and mean pressure gradient of 20 mmHg. PV 3.1 m/s. Abnormal DVI 0.18 cm. The mitral valve is thickened. There is moderate mitral valve stenosis with a mean gradient of 6mmHg. There is no pericardial effusion. Impression and Plan: Sepsis secondary to left-sided pneumonia and urinary tract infection: -continues on IV antibiotic therapy Persistent atrial fibrillation of uncertain duration with rapid ventricular response Hypercoagulable state not a candidate for anticoagulation due to recurrent anemia Normal LV systolic function with an LVEF of 55-60% by 2D echocardiogram 11/12/2024: -medications as an outpatient were reviewed and it does not appear the patient was on a beta-farhan or rate limiting drugs -rapid heart rate is in the setting of his sepsis/pneumonia and UTI -discontinue IV diltiazem drip and monitor heart rate on low-dose metoprolol 12.5 mg p.o. b.i.d. Acute on chronic renal failure currently stage V renal failure with admission BUN of 159 and creatinine of 12: -nephrology is following and does not appear to be a candidate for renal replacement therapy given his hypotension Hypothyroidism, uncontrolled with TSH of 26 this admission: -continue with thyroid supplementation Per daughter's wishes, patient is a DNR and DNI but is not leaning towards hospice care at this time. Comorbidities: Chronic anemia of iron deficiency and chronic kidney disease Hypertension Dyslipidemia Type 2 diabetes mellitus History of SVT status post remote ablation procedure Coronary artery disease status post prior coronary artery bypass graft with (ROBLERO-LAD, VG-OM, without grafting of 85% posterior descending stenosis 06/2015) Critical aortic stenosis s/p post 23mm [employer] Trifecta bioprosthetic valve replacement 06/2015 Recent hospitalization 10/19- for left foot osteomyelitis, UTI, acute renal failure, and failure to thrive History of penile cancer, with the indwelling catheter in place PHYSICIAN ATTESTATION OF PHYSICIAN GENERAL MACHINE OPERATOR DOCUMENTATION: I attest that I was physically present for the meraz portions of the service and evaluated the patient with the Physician Brand Marketing Coordinator, and I reviewed and discussed the case with the Physician Brand Marketing Coordinator and made modifications to the Physician Brand Marketing Coordinator's findings and plans of care as documented above NACHO WELCH Nov 14, 2024 14:30 LAURENT BLISS MD Nov 14, 2024 16:50
--- NOTE | 2024-11-14 15:00 | NUR ---
DR. Jhon BLISS IN TO SEE PATIENT. ORDERS: DC IV CARDIZEM DRIP. IF HEART RATE IS GREATER THAN 120 BPM AND SUSTAINED, TO NOTIFY HIM.
--- NOTE | 2024-11-14 16:46 | PN ---
NEPHROLOGY PROGRESS NOTE Date/Time Patient Seen: Nov 14, 2024 Reason for Consultation: 16:43 SUBJECTIVE: This is an 88-year-old male with a past medical history of atrial fibrillation on chronic anticoagulation, coronary artery disease, aortic stenosis, diabetes mellitus type 2, COPD, hyperlipidemia, chronic kidney disease, dementia, hypothyroidism, history of osteomyelitis and history of ulcers on his heels and midfoot. Patient was discharged to a local [facility] facility on 10/24/2024 under hospice care. Family decided to revoke hospice due to patient's declining condition. He was noted with elevated BUN/creatinine, hypernatremia. We has been consulted for renal failure. Renal function remains elevated Sodium today was 150 Renal ultrasound showed obscured right kidney. Left kidney is normal in size and echogenicity and vascularity. No hydronephrosis Rivas catheter in place. Urine culture positive for Pseudomonas aeruginosa Continues on antibiotics. He was seen in the medical floor, in no acute distress He continues to ask for water No family at the bedside Condition is critical and guarded REVIEW OF SYSTEMS: Unable to obtain due to patient's status PHYSICAL EXAM: GENERAL: Lethargic No acute distress. Well-nourished. EYES: EOMI. Anicteric. HENT: Moist mucous membranes. No scleral icterus. No cervical lymphadenopathy. LUNGS: Clear to auscultation bilaterally. No accessory muscle use. CARDIOVASCULAR: Regular rate and rhythm. No murmur. No JVD. ABDOMEN: Soft, non-tender and non-distended. No palpable masses. EXTREMITIES: No edema. Non-tender. SKIN: No rashes or lesions. Warm. NEUROLOGIC: No focal neurological deficits. CN II-XII grossly intact, but not individually tested. PSYCHIATRIC: Cooperative. Appropriate mood and affect. LABORATORY: [ ] Hematology Labs: Test 11/14/24 04:49 11/13/24 07:18 Range/Units White Blood Count 20.2 H 4.8-10.8 K/uL Red Blood Count 2.73 L 4.50-6.20 MIL/uL Hemoglobin 7.1 L 14.0-18.0 g/dL Hematocrit 24.7 L 42-54 % Mean Corpuscular Volume 90.5 79-99 fL Mean Corpuscular Hemoglobin 26.0 L 27.0-33.0 pg Mean Corpuscular Hemoglobin Concent 28.7 L 32.0-36.0 g/dL Red Cell Distribution Width 17.6 H 11.0-15.5 % Platelet Count 204 130-400 K/uL Mean Platelet Volume 9.2 7.5-10.5 fL Segmented Neutrophils % 78 H 40-70 % Lymphocytes % (Manual) 6 L 22-44 % Monocytes % (Manual) 7 2-9 % Eosinophils % (Manual) 9 H 1-6 % Nucleated Red Blood Cells 0.3 H 0.0-0.19 % Differential Comment MANUAL DIFFERENTIAL White Cell Morphology Comment Platelet Morphology Comment See comments Red Blood Cell Morphology ANISO 1+ Immature Granulocyte % (Auto) 5.3 H 0-1 % Neutrophils (%) (Auto) 79.7 H 40.0-77.0 % Lymphocytes (%) (Auto) 7.5 L 21.0-51.0 % Monocytes (%) (Auto) 3.9 3.0-13.0 % Eosinophils (%) (Auto) 3.1 0.0-8.0 % Basophils (%) (Auto) 0.5 0.0-5.0 % Neutrophils # (Auto) 12.0 H 1.8-7.7 K/uL Lymphocytes # (Auto) 1.1 1.0-4.8 K/uL Monocytes # (Auto) 0.6 0.1-1.0 K/uL Eosinophils # (Auto) 0.46 0.00-0.70 K/uL Basophils # (Auto) 0.07 0.00-0.20 K/uL Absolute Immature Granulocyte (auto 0.80 0-1 K/uL Chemistry Labs: Test 11/14/24 13:14 11/14/24 04:49 11/13/24 07:18 Range/Units Whole Blood Glucose 144 H 70-110 MG/DL Sodium Level 150 H 136-145 mmol/L Potassium Level 3.0 *L 3.5-5.1 mmol/L Chloride Level 105 101-111 mmol/L Carbon Dioxide Level 31 21-32 mmol/L Blood Urea Nitrogen 147 *H 7-18 mg/dL Creatinine 11.2 *H 0.5-1.3 mg/dL Glomerular Filtration Rate Calc 4 >90 mL/min Random Glucose 184 H 70-105 mg/dL Total Calcium 7.1 L 8.5-10.1 mg/dL Phosphorus Level 6.9 H 2.5-4.9 mg/dL Magnesium Level 1.50 L 1.80-2.40 mg/dL Total Bilirubin 0.4 0.2-1.0 mg/dL Aspartate Amino Transf (AST/SGOT) 30 10-37 U/L Alanine Aminotransferase (ALT/SGPT) < 6 L 12-78 U/L Alkaline Phosphatase 66 50-136 U/L Total Protein 6.3 6.0-8.3 g/dL Albumin 1.6 L 3.5-5.0 g/dL Uric Acid 17.0 H 2.6-7.2 mg/dL Iron Level 45 #L 65-175 mcg/dL Total Iron Binding Capacity 118 L 250-450 mcg/dL Percent Iron Saturation 38.1 30-44 % Ferritin 864 H 30-400 ng/mL Free Thyroxine (T4) Direct 0.38 L 0.76-1.46 ng/dL DIAGNOSTICS / RADIOLOGY: REASON: dilated left pupil ORDERING PHYSICIAN: MIKE HERRMANN PROCEDURE: HEAD WO - CT HEAD/BRAIN W/O CONTRAST CT HEAD/BRAIN W/O CONTRAST HISTORY: Dilated left pupil COMPARISON: None TECHNIQUE: Multiple sequential axial images of the head were obtained from the base of the skull through vertex. Patient was not given contrast through intravenous route. FINDINGS: The ventricles and extraventricular CSF spaces are dilated consistent with cerebral atrophy. Nonspecific white matter changes seen. Encephalomalacia changes are seen in the left frontal lobe. There is no midline shift, mass effect or herniation. No acute intracranial bleed is seen. Visualized portion of the paranasal sinuses are grossly within normal limits. IMPRESSION: 1. No acute intracranial bleed is seen. 2. Atrophy with white matter changes. Encephalomalacia changes are noted of the left frontal lobe. CT was performed with one or more following dose reduction techniques: automated exposure control, adjustment of the mA and kv according to patient's size, or use of a iterative reconstruction technique. DICTATED BY: CARROLL KEENE MD DATE: 11/12/24 4649 REASON: renal failure, r/o hydronephrosis ORDERING PHYSICIAN: NAHID RICCI MD PROCEDURE: ABD PEL WO - CT ABDOMEN/PELVIS W/O CONTRAST Exam Type: CT ABDOMEN/PELVIS W/O CONTRAST Clinical Information: renal failure, r/o hydronephrosis Comparison: None CT Dose Index (CTDI): 10.20 mGy Dose Length Product (DLP): 530.00 total mGy-cm PROTOCOL: Routine noncontrast helical scanning of the abdomen and pelvis was performed at 5mm collimation. Findings: No evidence of nephro or ureterolithiasis is found. No hydronephrosis or ureteral dilatation is seen. Ill-defined densities of the left upper lobe, lingula and left lower lobe seen consistent with pneumonia. Coronary arterial and cardiac valvular calcifications are identified. The stomach is unremarkable. It shows no wall thickening. No gross ulceration is seen. It is not overly distended. There are no surrounding inflammatory changes. No wall lesions are identified to suggest cancer. The spleen is unremarkable except for benign calcifications. It is not enlarged. The pancreas shows normal anatomy. It is not fatty replaced. It shows no lesions. The pancreatic duct is not dilated. The gallbladder is surgically absent. The adrenal glands are unremarkable. There is no enlargement. No lesions are noted. The liver is unremarkable. It shows no focal masses. The appendix is unremarkable. It shows no evidence of inflammation. No appendicolith is seen. The small bowel is unremarkable. There is no evidence of dilatation to suggest obstruction. No evidence of adynamic ileus is seen. There is no small bowel wall thickening to suggest enteritis. The colon is unremarkable. The urinary bladder is unremarkable. There is no wall thickening to suggest tumor or inflammation. There are no intraluminal calculi. There are no diverticula. There is no evidence of chronic bladder outlet obstruction. There is no evidence of urinary bladder distention to suggest urinary retention. The other pelvic structures are unremarkable. The bony and vascular structures are unremarkable for the patient's age. IMPRESSION: Left-sided pneumonia. Follow-up to complete radiographic resolution recommended. Other chronic findings as noted. This study was performed using dose reduction techniques to include automated exposure control and/or adjustment of the mA and/or kV according to patient size. DICTATED BY: HENRY FRANKS MD DATE: 11/12/24 1527 REASON: renal failure ORDERING PHYSICIAN: NAHID RICCI MD PROCEDURE: RENAL - US RENAL SONOGRAM Exam Type: US RENAL SONOGRAM Clinical Information: renal failure Comparison: None Findings and impression: Right kidney is obscured. Left kidney is normal in size and echogenicity and vascularity. No hydronephrosis. DICTATED BY: HENRY FRANKS MD DATE: 11/12/24 1233 REASON: sepsis ORDERING PHYSICIAN: NAHID RICCI MD PROCEDURE: CXR1VW - CHEST 1VW Exam Type: CHEST 1VW Clinical Information: sepsis Comparison: None Findings: Status post median sternotomy. Ill-defined infiltrates of the left lower lobe are seen consistent with pneumonia. . The heart is large in size. The bony and soft tissue structures show no worrisome pathology. IMPRESSION: Findings consistent with pneumonia. Follow-up is advised. DICTATED BY: HENRY FRANKS MD DATE: 11/12/24 1052 REASON: sepsis ORDERING PHYSICIAN: NAHID RICCI MD PROCEDURE: ABD 1VW - ABD 1VW Exam Type: ABD 1VW Clinical Information: sepsis Comparison: None Findings: Abdomen demonstrates no evidence of pathologic calcification or soft tissue mass. There are no radiopacities to suggest calculous disease. The intestinal gas pattern is within normal limits without evidence of dilatation to suggest obstruction or adynamic ileus. The bony structures are unremarkable. There is residual contrast within bowel. IMPRESSION: Normal abdomen. DICTATED BY: HENRY FRANKS MD DATE: 11/12/24 1036 REASON: hypoxia ORDERING PHYSICIAN: ELIJAH FERNANDEZ DO PROCEDURE: CXR1VW - CHEST 1VW FRONTAL CHEST RADIOGRAPH INDICATION: hypoxia COMPARISON: 11/10/2024 FINDINGS/IMPRESSION: elementary school tutor leads overlie the field of view. Median sternotomy wires are in appropriate alignment. Patient positioning is not optimal, but the radiologic examination is still believed to be of reasonable diagnostic quality. Stable heart size without pulmonary vascular congestion. Unchanged left lung greater than right midlung pulmonary edema or other airspace disease, without pneumothorax. DICTATED BY: DARLENE DEAN MD DATE: 11/11/24 1723 ASSESSMENT: Hyponatremia Acute renal failure COPD exacerbation Pulmonary edema Uncontrolled diabetes mellitus type 2 Leukocytosis Atrial fibrillation Coronary artery disease Hypothyroidism Dementia PLAN: Labs, diagnostic, radiologic exams reviewed and interpreted by myself and supervising physician. We have reviewed external records in detail Patient remains poor candidate for any form of renal replacement therapy due to underlying conditions. Any form of renal replacement therapy is a high-risk procedure Continue with D5W for hypernatremia Patient may benefit from NGT placement if dysphagia is present. Recommend urology follow up for Rivas catheter management Continue with renally dose antibiotics as per ID We will continue to monitor the patient closely Require close monitoring of renal function and electrolytes Order CBC, CMP, and electrolytes in am BiPAP as necessary, for respiratory distress Monitor blood pressure adjust medication doses as needed Continue with the renally dose antibiotic Avoid hypotensive episodes May use Dilaudid 0.5 mg IV every 6 hours as needed for severe pain Monitor blood sugars Strict intake, output, and daily weight should be monitored Please renally adjust medications Avoid nephrotoxic and nonsteroidal drugs Avoid contrast if possible Will continue to monitor renal function, anemia, electrolytes Treatment plan discussed with patient Questions were answered We have discussed with the other team physicians in detail about the care plan We will continue to monitor the patient closely ATTESTATION BY PHYSICIAN I have seen and examined the patient. I reviewed the documentation, medical decision making, and treatment plan as noted by the mid-level provider above. I agree with the findings and plan of care. DAXA NARVAEZ MD, [facility] Nov 14, 2024 16:46
[2024-11-14] MEDS: FERROUS SULFATE 325 MG TABLET.DR PO SCH (17:16)
--- NOTE | 2024-11-14 17:22 | NUR ---
DISCHARGE DISPOSITION/CODE STATUS SW spoke with patient's daughter, Federico, regarding discharge disposition. She stated that patient would be returning to [place] for continued treatment. Daughter stated that patient would no longer be under hospice care. She stated that patient's spouse is also at nursing facility and will patient will be placed in same room as spouse. TATIANA also spoke to patient's daughter regarding Code status. She stated that she had spoken to Dr. Smith and was in agreement to have patient be Do Not Resuscitate Code status in the hospital. Daughter stated that [facility]. She also stated that she wanted to make sure that nursing were aware that patient is hard of hearing and needs to be talked to in a loud tone. Patient's nurse, TURNER Guidry, notified.
--- NOTE | 2024-11-14 17:32 | NUR ---
ATTEMPTED TO FEED PATIENT (PUREED DIET), AFTER GIVING HIM 2 SPOONFULS OF MEAT AND CORN...PATIENT WITH COUGH AND STARTING DOZING OFF. STOPPED FEEDING PATIENT. WILL INFORM DAUGHTER, KENYA. WILL CONTINUE TO MONITOR.
--- NOTE | 2024-11-14 18:39 | PN ---
[facility] PROGRESS NOTE Date Patient Seen: Nov 14, 2024 Time of Visit: 18:28 Supervising Physician: Dr. Del Cid Primary Care Physician: Dr. Ware Outpatient Specialists: [ ] Inpatient Consults: Pulmonary, cardiology, Nephrology PROBLEM LIST: Acute respiratory failure currently requiring nasal cannula supplementation. Hospital-acquired pneumonia. Acute urinary tract infection, with the presence of indwelling catheter. Culture positive for Pseudomonas aeruginosa Acute sepsis and shock suspect from pulmonary source versus urinary tract source. Acute hypernatremia. Dehydration. Atrial fibrillation with RVR, hypercoagulable state, not on anticoagulation due to recurrent anemia CKD stage V Hypothyroidism, TSH is elevated at 26.56 Iron deficiency Anemia Hypertension Dyslipidemia Diabetes mellitus type 2 History of SVT with successful ablation CAD s/p remote CABG Critical aortic stenosis s/p bioprosthetic valve replacement 06/2015 Dementia INTERVAL HISTORY: 11/13/2024: At the time of my evaluation, the patient is in his assigned room. He remains generally confused, not verbally interactive and unaware of his surroundings. Respiratory kowalski the patient is maintaining optimal oxygenation and saturation on nasal cannula 2 L. On the monitor, the patient remains normotensive, but tachycardic. He is currently on a Cardizem drip for management of his AFib and Cardiology remains on board. The patient failed his bedside swallow study and is not a candidate for oral feedings. The patient may need a NGT if RP permits nutritional support. The patient continues to void through a Rivas catheter. On laboratory, the WBC count improved from 17.4 yesterday to 16.0 today. He continues on antibiotic coverage currently on Meropenem. Also, the sodium count remains elevated at 160, potassium is low 3.4, BUN 161 and a creatinine of 11.9 with a GFR of four. The patient continues on IV infusion with D5 at 100 cc/hour. Blood cultures are currently showing no growth and urine culture showing Gram-negative rods. No new imaging for review. No other complaint. 11/14/2024: At the time of my evaluation, the patient was lying in bed and not following commands. Respiratory kowalski the patient is maintaining optimal oxygenation and saturation on nasal cannula 2 L. On the monitor, the patient remains normotensive, but tachycardic. Cardizem drip has been stopped and the patient is now on metoprolol 12.5 b.i.d. The patient failed his bedside swallow study and is currently NPO. The patient continues to void through a Rivas catheter. On laboratory, the WBC count worsened to 20.2 And H&H dropped to 70.1/24.5. On chemistry, the patient has widespread electrolyte derangement with a sodium of 150, potassium of 3.0, chloride of 105, CO2 of 31, renal parameters showed BUN of147 and a creatinine of 11.2 with a GFR of 4. He continues on antibiotic coverage currently on Meropenem. The patient continues on IV infusion with D5 at 100 cc/hour. Blood cultures are currently showing no growth and urine culture showing Pseudomonas aeruginosa. No new imaging for review. No other complaint. REVIEW OF SYSTEMS: 12 point ROS reviewed with patient. Pertinent positives mentioned above. Otherwise negative. PHYSICAL EXAM: GENERAL: alert, weak, awake oriented x self HEENT: EOMI, Sclera non icteric, moist mucosa NECK: Supple, no JVD, trachea midline LUNGS: Clear breath sounds bilaterally. No wheezes HEART: Regular rate and rhythm. Normal S1 and S2, without murmurs ABD: Abdomen soft, nontender. Bowel sounds present EXT: No clubbing cyanosis or edema NEURO: Unable to carry out neurologic evaluation as the patient is not follo wing commands. Vital Signs (last 8hr) Date Time Temp Pulse Resp B/P (MAP) Pulse Ox O2 Delivery O2 Flow Rate FiO2 11/14/24 15:24 98.6 94 18 107/49 92 11/14/24 12:03 96.8 98 13 91/71 99 11/14/24 11:35 96 20 LABS: Hematology Labs: Test 11/14/24 04:49 11/13/24 07:18 Range/Units White Blood Count 20.2 H 4.8-10.8 K/uL Red Blood Count 2.73 L 4.50-6.20 MIL/uL Hemoglobin 7.1 L 14.0-18.0 g/dL Hematocrit 24.7 L 42-54 % Mean Corpuscular Volume 90.5 79-99 fL Mean Corpuscular Hemoglobin 26.0 L 27.0-33.0 pg Mean Corpuscular Hemoglobin Concent 28.7 L 32.0-36.0 g/dL Red Cell Distribution Width 17.6 H 11.0-15.5 % Platelet Count 204 130-400 K/uL Mean Platelet Volume 9.2 7.5-10.5 fL Segmented Neutrophils % 78 H 40-70 % Lymphocytes % (Manual) 6 L 22-44 % Monocytes % (Manual) 7 2-9 % Eosinophils % (Manual) 9 H 1-6 % Nucleated Red Blood Cells 0.3 H 0.0-0.19 % Differential Comment MANUAL DIFFERENTIAL White Cell Morphology Comment Platelet Morphology Comment See comments Red Blood Cell Morphology ANISO 1+ Immature Granulocyte % (Auto) 5.3 H 0-1 % Neutrophils (%) (Auto) 79.7 H 40.0-77.0 % Lymphocytes (%) (Auto) 7.5 L 21.0-51.0 % Monocytes (%) (Auto) 3.9 3.0-13.0 % Eosinophils (%) (Auto) 3.1 0.0-8.0 % Basophils (%) (Auto) 0.5 0.0-5.0 % Neutrophils # (Auto) 12.0 H 1.8-7.7 K/uL Lymphocytes # (Auto) 1.1 1.0-4.8 K/uL Monocytes # (Auto) 0.6 0.1-1.0 K/uL Eosinophils # (Auto) 0.46 0.00-0.70 K/uL Basophils # (Auto) 0.07 0.00-0.20 K/uL Absolute Immature Granulocyte (auto 0.80 0-1 K/uL Chemistry Labs: Test 11/14/24 17:14 11/14/24 04:49 11/13/24 07:18 Range/Units Whole Blood Glucose 245 #H 70-110 MG/DL Sodium Level 150 H 136-145 mmol/L Potassium Level 3.0 *L 3.5-5.1 mmol/L Chloride Level 105 101-111 mmol/L Carbon Dioxide Level 31 21-32 mmol/L Blood Urea Nitrogen 147 *H 7-18 mg/dL Creatinine 11.2 *H 0.5-1.3 mg/dL Glomerular Filtration Rate Calc 4 >90 mL/min Random Glucose 184 H 70-105 mg/dL Total Calcium 7.1 L 8.5-10.1 mg/dL Phosphorus Level 6.9 H 2.5-4.9 mg/dL Magnesium Level 1.50 L 1.80-2.40 mg/dL Total Bilirubin 0.4 0.2-1.0 mg/dL Aspartate Amino Transf (AST/SGOT) 30 10-37 U/L Alanine Aminotransferase (ALT/SGPT) < 6 L 12-78 U/L Alkaline Phosphatase 66 50-136 U/L Total Protein 6.3 6.0-8.3 g/dL Albumin 1.6 L 3.5-5.0 g/dL Uric Acid 17.0 H 2.6-7.2 mg/dL Iron Level 45 #L 65-175 mcg/dL Total Iron Binding Capacity 118 L 250-450 mcg/dL Percent Iron Saturation 38.1 30-44 % Ferritin 864 H 30-400 ng/mL Free Thyroxine (T4) Direct 0.38 L 0.76-1.46 ng/dL DIAGNOSTICS / RADIOLOGY RESULTS: [ ] PLAN During my visit, the patient remained in the emergency department awaiting bed assignment. He was generally confused and was not able to participate in in his bedside assessment. There was no family members present at the bedside during my visit. The patient will continue on oxygen supplementation via nasal cannula and we will adjust as necessary. Cardiac-kowalski, he is hemodynamically stable and was started on Cardizem due to the recent AFib RVR event. Currently, the patient will remain NPO. Bedside swallow exam was ordered and we will possibly require an MBSS. The patient will remain on IV half NS and we will follow the sodium trend. The patient initially received antibiotic coverage with Rocephin and doxycycline. Hospitalist team brought in covered with IV Merrem. We will continue this regimen for now and we will follow the culture reports. We will monitor the patient's progress and response to management. We will repeat surveillance labs in the morning. We will continue to provide general supporti ve care, GI and DVT prophylaxis. Appreciate the opportunity given to participate in patient care. Further orders per attending MD and hospital course. 11/13/2024: For now, going to continue current management for the patient. For going to continue monitoring his mental status. We will continue oxygen supplementation via the nasal cannula and we will adjust as necessary. The p atient will remain on Cardizem drip and we will follow the advice of the graphic design intern, who made mentioned that the AFib with RVR is likely due to his infectious process. 2D echo performed showed a LVEF of 55-60%. There was inability to assess the diastolic function. The patient will likely require a NGT for further feeding due to his high risk for aspiration if the daughter agre es. We will continue with D5 at 100 cc/hour, as ordered by the headstart teacher for rehydration and correction of his electrolyte imbalance. We will continue antibiotic therapy with IV Merrem and follow the urine and blood culture results. I do agree with the graphic design intern's to revisit with the patient's daughter who is the RP to reinitiate hospice care as the patient is a DNR and sh e is declining any aggressive care such as hemodialysis that was previously offered. We will monitor the patient's progress and response to management. We will continue to provide general supportive care, GI and DVT prophylaxis. Further orders per attending MD and hospital course. 11/14/2024: For now, going to continue current management for the patient. Will continue monitoring his mental status. We will continue oxygen supplementation via the nasal cannula and we will adjust as necessary. We will continue to monitor for any arrhythmias or changes in vital signs. The patient will remain NPO and continue on D5 at 100 cc/hour, as ordered by the headstart teacher for rehydration and correction of his electrolyte imbalance. We will continue antibiotic therapy with IV Merrem, we will follow the WBC trend. Considering his condition is critical and prognosis is poor, primary MD discuss with the daughter who has now made the patient DNR/DNI. We will monitor the patient's progress and response to management. We will continue to provide general supportive care, GI and DVT prophylaxis. Further orders per attending MD and hospital course. NEURO: Minimize central acting medications as possible. Maintain fall precautions, adequate lighting during the day PULMONARY: Supplemental 02 as needed. Maintain aspiration precautions at all times CARDIOVASCULAR: Follow hemodynamics. Vital signs per facility protocol GI & NUTRITION: Continue with nutritional support. Continue stool softeners and laxatives as needed. KIDNEYS & ELECTROLYTES: Strict monitoring of intake, output and overall fluid balance. Avoid nephrotoxic medications to the extent possible. Medications to be dosed according to renal function. Monitor electrolytes and replace as needed ENDOCRINE: Maintain blood glucose between 100-180 at all times. Hypoglycemia protocol in place INFECTIOUS DISEASE: Trend temperature, WBC and procalcitonin level Follow cultures, deescalate antibiotics as soon as possible. Panculture if new onset fever ONCOLOGY/HEMATOLOGY/COAGULATION: Monitor for s/s of bleeding Monitor hemoglobin, coagulation studies as needed SKIN: Pressure ulcer prevention per facility protocol Specialty mattress ORTHO/REHAB: Continue PT/OT Prophylaxis: Continue GI and DVT prophylaxis Code Status: Full Resuscitation Disposition: TBD Other: Total patient care time exceeds 35 minutes excluding all procedures. TED SOSA NP Nov 14, 2024 18:39
[2024-11-15] VITALS (11 sets, daily range): BP systolic 80–91; BP diastolic 40–59; PULSE 56–107; RESP 16–22; TEMP 96.4–98.6; O2SAT 95–100
[2024-11-15 03:44] LABS: HEMATOCRIT 24.9 % (42-54); MEAN CORPUSCULAR HEMOGLOBIN 26.4 pg (27.0-33.0); MEAN CORPUSCULAR HGB CONC 29.3 g/dL (32.0-36.0); MEAN CORPUSCULAR VOLUME 89.9 fL (79-99); NUCLEATED RED BLOOD CELLS 0.4 % (0.0-0.19); RED BLOOD CELL COUNT(AUTO) 2.77 MIL/uL (4.50-6.20); RED CELL DISTRIBUTION WIDTH 17.6 % (11.0-15.5); WHITE BLOOD COUNT (AUTO) 24.8 K/uL (4.8-10.8)
[2024-11-15 04:01] LABS: ALBUMIN 1.5 g/dL (3.5-5.0); ASPARTATE AMINOTRANSFERASE 42 U/L (10-37); BILIRUBIN,TOTAL 0.4 mg/dL (0.2-1.0); CARBON DIOXIDE 30 mmol/L (21-32); CHLORIDE 99 mmol/L (101-111); GLOMERULAR FILTR. RATE CALC 4 mL/min (>90); GLUCOSE,RANDOM 103 mg/dL (70-105); POTASSIUM 3.2 mmol/L (3.5-5.1); SODIUM SERUM 144 mmol/L (136-145); TOTAL PROTEIN, SERUM 6.3 g/dL (6.0-8.3)
[2024-11-15 04:02] LABS: ALANINE AMINOTRANSFERASE < 6 U/L (12-78)
[2024-11-15 04:04] LABS: CREATININE 10.7 mg/dL (0.5-1.3); UREA NITROGEN, BLOOD 149 mg/dL (7-18)
--- NOTE | 2024-11-15 08:33 | PN ---
SUBJECTIVE: The patient is an 88-year-old diabetic, Latin-Australian male being followed for gangrene and osteomyelitis left fifth toe, ulcer sub-fifth metatarsophalangeal joint and ulcer posterior heel on the left. He has a white count of 24.8. He has an hemoglobin and hematocrit of 7.3 and 24.9, BUN 149, creatinine 10.7, albumin 1.5. The patient is currently receiving IV meropenem. The patient has advanced dementia, unresponsive to verbal commands, being followed by the Nephrology Service. He has problems list that includes atrial fibrillation, on chronic anticoagulation therapy, coronary artery disease, aortic stenosis, diabetes type 2, chronic obstructive pulmonary disease, hyperlipidemia, chronic kidney disease, dementia, hypothyroidism, history of osteomyelitis left fifth toe, history of ulcer to the heel and fifth metatarsophalangeal joint on the left. The patient has had his hospice status revoked by his family. Urine cultures positive for pseudomonas aeruginosa. The patient is currently receiving the IV Merrem. Nephrology feels the patient is a poor candidate for any form of renal replacement therapy. The patient is currently afebrile at 98.6, pulse 97, respiration 18, blood pressure 89/54. The patient had blood cultures that showed no growth. Urine cultures are growing back pseudomonas aeruginosa, for which the patient receives IV Merrem. The patient's review of systems could not be obtained. Apparently, he is DNR/DNI status. OBJECTIVE: His examination today shows he has pitting edema to his feet bilaterally. His feet are cold. His digits are ruborous. He has nonpalpable pedal pulses. He has dry gangrene to the left fifth toe. He has a dry eschar with a black necrotic base plantar aspect of the fifth metatarsophalangeal joint. He has dry necrotic eschar ulcer to the posterior aspect of the left heel in an area approximately 35 x 35 mm. There is no evidence of any abscess, no purulent drainage. No exposure of deeper structures from his wound. ASSESSMENT: An 88-year-old male with stage 5 renal insufficiency. Consider a poor candidate for renal replacement per the Nephrology Service, being followed for atrial fibrillation, coronary artery disease, peripheral vascular disease, aortic stenosis, type 2 diabetes, dementia, chronic obstructive pulmonary disease, hyperlipidemia, chronic kidney disease, hypothyroidism, history of left fifth toe osteomyelitis, left heel ulcer. Apparently, the family has revoked his hospice status. He is being followed for hyponatremia, which is improved, acute renal failure, which is worsening, chronic obstructive pulmonary disease, pulmonary edema and uncontrolled diabetes, leukocytosis, atrial fibrillation, pulmonary edema. The patient is being followed by Primary Care Service. The patient is being followed by the Cardiology and Nephrology Service. PLAN: We will continue with Merrem IV. Continue with offloading measures. Continue with Betadine dressings to the wounds on the left foot, left fifth toe, fifth metatarsophalangeal joint and heel area. Continue with offloading measures, local wound care and the IV antibiotics and follow the patient closely while in-house. TID: [id number] RECEIPT: [id number]
[2024-11-15] MEDS ORDERED: MEROPENEM 500MG 500 MG VIAL IV SCH (09:00)
--- NOTE | 2024-11-15 10:00 | NUR ---
DR. EMANUEL IN TO SEE PATIENT, UPDATE GIVEN. LABS REVIEWED. NO NEW ORDERS. LAB CHECK ORDERED FOR TOMORROW MORNING.
--- NOTE | 2024-11-15 11:33 | PN ---
[facility] PROGRESS NOTE Date Patient Seen: Nov 15, 2024 Time of Visit: 11:32 Interval History: This is an 88-year-old Latin-[place] male, [facility] resident with a past medical history of hypertension, dyslipidemia, type 2 diabetes mellitus, SVT status post prior successful ablation, CAD s/p CABG (ROBLERO-LAD, VG-OM, without grafting of 85% posterior descending stenosis June 2015), critical aortic stenosis s/p post 23mm [employer] Trifecta bioprosthetic valve replacement June 2015, paroxysmal (now persistent) atrial fibrillation with hypercoagulable state not on anticoagulation due to recurrent anemia, CKD stage V, hypothyroidism, and dementia who was brought from the [place] [facility] due to hypoxemia. The patient was recently hospitalized 10/19- for left foot osteomyelitis, UTI, acute renal failure, and failure to thrive. He then had an ED visit on for UTI and leukocytosis. On this occasion, he is being managed for sepsis, septic shock and pneumonia and in addition he has developed atrial fibrillation with rapid ventricular response. The patient has been hypotensive but is tolerating diltiazem at 5 milligrams/hour and metoprolol tartrate 12.5 mg p.o. b.i.d.. He has had acute on chronic renal failure with admission BUN of 159 and creatinine of 12.5 with estimated GFR of 4 (previously creatinine was 5.2 on 10/20/2024). He is not considered a candidate for renal replacement therapy and at this point, primary team is attempting to discuss overall management with the daughter and consider hospice care. He was also noted to have hypothyroidism with TSH of 26.5. Diltiazem drip was withdrawn on 11/14/2024 and has been maintained on metoprolol 12.5 mg p.o. b.i.d.. He has been maintaining atrial fibrillation with a control led ventricular response in the 90 beat per minute range. His daughter has decided against initiation of dialysis and continued medical therapy conservatively, leaning towards comfort measures in the [facility] but she has declined hospice for now. Physical Examination: GENERAL: Patient is confused, poorly communicative and bed-bound but no acute distress. HEAD: Normal with no signs of head trauma. EYES: PERRLA, EOMI, conjunctiva and sclera normal. NECK: Supple without JVD. There is no tenderness, lymphadenopathy, or masses. No thyromegaly. Normal carotid upstrokes without bruits. LUNGS: There are diminished breath sounds at the bases bilaterally. HEART: Irregularly irregular underlying rhythm, normal S1 and S2 and a 2/6 early peaking systolic ejection murmur at the right upper sternal border. VASC: Pedal pulses are difficult to palpate. There is a dressing to the left foot, trace of pedal edema EXT: No clubbing, cyanosis. Ecchymosis to the upper extremities is noted NEURO: Awakens to verbal command. Speech is incoherent and uncooperative with the exam. Laboratory: Hematology Labs: Test 11/15/24 03:29 11/14/24 04:49 Range/Units White Blood Count 24.8 H 4.8-10.8 K/uL Red Blood Count 2.77 L 4.50-6.20 MIL/uL Hemoglobin 7.3 L 14.0-18.0 g/dL Hematocrit 24.9 L 42-54 % Mean Corpuscular Volume 89.9 79-99 fL Mean Corpuscular Hemoglobin 26.4 L 27.0-33.0 pg Mean Corpuscular Hemoglobin Concent 29.3 L 32.0-36.0 g/dL Red Cell Distribution Width 17.6 H 11.0-15.5 % Platelet Count 181 130-400 K/uL Mean Platelet Volume 9.3 7.5-10.5 fL Nucleated Red Blood Cells 0.4 H 0.0-0.19 % Segmented Neutrophils % 78 H 40-70 % Lymphocytes % (Manual) 6 L 22-44 % Monocytes % (Manual) 7 2-9 % Eosinophils % (Manual) 9 H 1-6 % Differential Comment MANUAL DIFFERENTIAL White Cell Morphology Comment Platelet Morphology Comment See comments Red Blood Cell Morphology ANISO 1+ Chemistry Labs: Test 11/15/24 11:09 11/15/24 03:29 11/14/24 04:49 Range/Units Whole Blood Glucose 189 H 70-110 MG/DL Sodium Level 144 136-145 mmol/L Potassium Level 3.2 L 3.5-5.1 mmol/L Chloride Level 99 L 101-111 mmol/L Carbon Dioxide Level 30 21-32 mmol/L Blood Urea Nitrogen 149 *H 7-18 mg/dL Creatinine 10.7 *H 0.5-1.3 mg/dL Glomerular Filtration Rate Calc 4 >90 mL/min Random Glucose 103 70-105 mg/dL Total Calcium 6.9 L 8.5-10.1 mg/dL Magnesium Level 1.40 L 1.80-2.40 mg/dL Total Bilirubin 0.4 0.2-1.0 mg/dL Aspartate Amino Transf (AST/SGOT) 42 H 10-37 U/L Alanine Aminotransferase (ALT/SGPT) < 6 L 12-78 U/L Alkaline Phosphatase 72 50-136 U/L Total Protein 6.3 6.0-8.3 g/dL Albumin 1.5 L 3.5-5.0 g/dL Phosphorus Level 6.9 H 2.5-4.9 mg/dL Diagnostics / Radiology: 2D echocardiogram 11/12/2024: Conclusion The left ventricle is normal size. The LVEF is 55-60%. The LV diastolic function was unable to be assessed. E/A flow is fused. The right ventricle is normal size. The right ventricular systolic function is reduced. The left atrium size is normal. The right atrium size is normal. Prosthetic aortic valve is present. No paravalvular/perivalvular leak noted. Prosthetic aortic valve gradients are elevated maximum pressure gradient of 38 mmHg and mean pressure gradient of 20 mmHg. PV 3.1 m/s. Abnormal DVI 0.18 cm. The mitral valve is thickened. There is moderate mitral valve stenosis with a mean gradient of 6mmHg. There is no pericardial effusion. Impression and Plan: Sepsis secondary to left-sided pneumonia and urinary tract infection: -continues on IV antibiotic therapy Persistent atrial fibrillation of uncertain duration with rapid ventricular response Hypercoagulable state not a candidate for anticoagulation due to recurrent anemia Normal LV systolic function with an LVEF of 55-60% by 2D echocardiogram 11/12/2024: -medications as an outpatient were reviewed and it does not appear the patient was on a beta-farhan or rate limiting drugs -rapid heart rate is in the setting of his sepsis/pneumonia and UTI -continue low-dose metoprolol 12.5 mg p.o. b.i.d. -continue with low-dose metoprolol, not a candidate for anticoagulation previously documented due to recurrent anemia -cardiology will sign off and re-evaluate upon request if any acute cardiac issues arise -continue low-dose metoprolol 12.5 mg p.o. b.i.d. at the [facility] Acute on chronic renal failure currently stage V renal failure with admission BUN of 159 and creatinine of 12: Daughter has declined dialysis Hypothyroidism, uncontrolled with TSH of 26 this admission: -continue with thyroid supplementation Per daughter's wishes, patient is a DNR and DNI leaning towards comfort care at the [facility] but not hospice at this time. Comorbidities: Chronic anemia of iron deficiency and chronic kidney disease Hypertension Dyslipidemia Type 2 diabetes mellitus History of SVT status post remote ablation procedure Coronary artery disease status post prior coronary artery bypass graft with (ROBLERO-LAD, VG-OM, without grafting of 85% posterior descending stenosis 06/2015) Critical aortic stenosis s/p post 23mm [employer] Trifecta bioprosthetic valve replacement 06/2015 Recent hospitalization 10/19- for left foot osteomyelitis, UTI, acute renal failure, and failure to thrive History of penile cancer, with the indwelling catheter in place PHYSICIAN ATTESTATION OF PHYSICIAN PHONOGRAPH CARTRIDGE ASSEMBLER DOCUMENTATION: I attest that I was physically present for the meraz portions of the service and evaluated the patient with the Physician Tenter Frame Back Tender, and I reviewed and discussed the case with the Physician Tenter Frame Back Tender and made modifications to the Physician Tenter Frame Back Tender's findings and plans of care as documented above NACHO WELCH Nov 15, 2024 11:33 LAURENT BLISS MD Nov 15, 2024 15:02
--- NOTE | 2024-11-15 14:07 | PN ---
NEPHROLOGY PROGRESS NOTE Date/Time Patient Seen: Nov 15, 2024 Reason for Consultation: 14:06 SUBJECTIVE: This is an 88-year-old male with a past medical history of atrial fibrillation on chronic anticoagulation, coronary artery disease, aortic stenosis, diabetes mellitus type 2, COPD, hyperlipidemia, chronic kidney disease, dementia, hypothyroidism, history of osteomyelitis and history of ulcers on his heels and midfoot. Patient was discharged to a local intermediate facility on 10/24/2024 under hospice care. Family decided to revoke hospice due to patient's declining condition. He was noted with elevated BUN/creatinine, hypernatremia. We has been consulted for renal failure. Renal function remains elevated Sodium today was 144 Renal ultrasound showed obscured right kidney. Left kidney is normal in size and echogenicity and vascularity. No hydronephrosis Rivas catheter in place. Urine culture positive for Pseudomonas aeruginosa Continues on antibiotics. He was seen in the medical floor, in no acute distress No family at the bedside Condition is critical and guarded REVIEW OF SYSTEMS: Unable to obtain due to patient's status PHYSICAL EXAM: GENERAL: Lethargic No acute distress. Well-nourished. EYES: EOMI. Anicteric. HENT: Moist mucous membranes. No scleral icterus. No cervical lymphadenopathy. LUNGS: Clear to auscultation bilaterally. No accessory muscle use. CARDIOVASCULAR: Regular rate and rhythm. No murmur. No JVD. ABDOMEN: Soft, non-tender and non-distended. No palpable masses. EXTREMITIES: No edema. Non-tender. SKIN: No rashes or lesions. Warm. NEUROLOGIC: No focal neurological deficits. CN II-XII grossly intact, but not individually tested. PSYCHIATRIC: Cooperative. Appropriate mood and affect. LABORATORY: [ ] Hematology Labs: Test 11/15/24 03:29 11/14/24 04:49 Range/Units White Blood Count 24.8 H 4.8-10.8 K/uL Red Blood Count 2.77 L 4.50-6.20 MIL/uL Hemoglobin 7.3 L 14.0-18.0 g/dL Hematocrit 24.9 L 42-54 % Mean Corpuscular Volume 89.9 79-99 fL Mean Corpuscular Hemoglobin 26.4 L 27.0-33.0 pg Mean Corpuscular Hemoglobin Concent 29.3 L 32.0-36.0 g/dL Red Cell Distribution Width 17.6 H 11.0-15.5 % Platelet Count 181 130-400 K/uL Mean Platelet Volume 9.3 7.5-10.5 fL Nucleated Red Blood Cells 0.4 H 0.0-0.19 % Segmented Neutrophils % 78 H 40-70 % Lymphocytes % (Manual) 6 L 22-44 % Monocytes % (Manual) 7 2-9 % Eosinophils % (Manual) 9 H 1-6 % Differential Comment MANUAL DIFFERENTIAL White Cell Morphology Comment Platelet Morphology Comment See comments Red Blood Cell Morphology ANISO 1+ Chemistry Labs: Test 11/15/24 11:09 11/15/24 03:29 11/14/24 04:49 Range/Units Whole Blood Glucose 189 H 70-110 MG/DL Sodium Level 144 136-145 mmol/L Potassium Level 3.2 L 3.5-5.1 mmol/L Chloride Level 99 L 101-111 mmol/L Carbon Dioxide Level 30 21-32 mmol/L Blood Urea Nitrogen 149 *H 7-18 mg/dL Creatinine 10.7 *H 0.5-1.3 mg/dL Glomerular Filtration Rate Calc 4 >90 mL/min Random Glucose 103 70-105 mg/dL Total Calcium 6.9 L 8.5-10.1 mg/dL Magnesium Level 1.40 L 1.80-2.40 mg/dL Total Bilirubin 0.4 0.2-1.0 mg/dL Aspartate Amino Transf (AST/SGOT) 42 H 10-37 U/L Alanine Aminotransferase (ALT/SGPT) < 6 L 12-78 U/L Alkaline Phosphatase 72 50-136 U/L Total Protein 6.3 6.0-8.3 g/dL Albumin 1.5 L 3.5-5.0 g/dL Phosphorus Level 6.9 H 2.5-4.9 mg/dL DIAGNOSTICS / RADIOLOGY: REASON: dilated left pupil ORDERING PHYSICIAN: MIKE HERRMANN PROCEDURE: HEAD WO - CT HEAD/BRAIN W/O CONTRAST CT HEAD/BRAIN W/O CONTRAST HISTORY: Dilated left pupil COMPARISON: None TECHNIQUE: Multiple sequential axial images of the head were obtained from the base of the skull through vertex. Patient was not given contrast through intravenous route. FINDINGS: The ventricles and extraventricular CSF spaces are dilated consistent with cerebral atrophy. Nonspecific white matter changes seen. Encephalomalacia changes are seen in the left frontal lobe. There is no midline shift, mass effect or herniation. No acute intracranial bleed is seen. Visualized portion of the paranasal sinuses are grossly within normal limits. IMPRESSION: 1. No acute intracranial bleed is seen. 2. Atrophy with white matter changes. Encephalomalacia changes are noted of the left frontal lobe. CT was performed with one or more following dose reduction techniques: automated exposure control, adjustment of the mA and kv according to patient's size, or use of a iterative reconstruction technique. DICTATED BY: CARROLL KEENE MD DATE: 11/12/242258 REASON: renal failure, r/o hydronephrosis ORDERING PHYSICIAN: NAHID RICCI MD PROCEDURE: ABD PEL WO - CT ABDOMEN/PELVIS W/O CONTRAST Exam Type: CT ABDOMEN/PELVIS W/O CONTRAST Clinical Information: renal failure, r/o hydronephrosis Comparison: None CT Dose Index (CTDI): 10.20 mGy Dose Length Product (DLP): 530.00 total mGy-cm PROTOCOL: Routine noncontrast helical scanning of the abdomen and pelvis was performed at 5mm collimation. Findings: No evidence of nephro or ureterolithiasis is found. No hydronephrosis or ureteral dilatation is seen. Ill-defined densities of the left upper lobe, lingula and left lower lobe seen consistent with pneumonia. Coronary arterial and cardiac valvular calcifications are identified. The stomach is unremarkable. It shows no wall thickening. No gross ulceration is seen. It is not overly distended. There are no surrounding inflammatory changes. No wall lesions are identified to suggest cancer. The spleen is unremarkable except for benign calcifications. It is not enlarged. The pancreas shows normal anatomy. It is not fatty replaced. It shows no lesions. The pancreatic duct is not dilated. The gallbladder is surgically absent. The adrenal glands are unremarkable. There is no enlargement. No lesions are noted. The liver is unremarkable. It shows no focal masses. The appendix is unremarkable. It shows no evidence of inflammation. No appendicolith is seen. The small bowel is unremarkable. There is no evidence of dilatation to suggest obstruction. No evidence of adynamic ileus is seen. There is no small bowel wall thickening to suggest enteritis. The colon is unremarkable. The urinary bladder is unremarkable. There is no wall thickening to suggest tumor or inflammation. There are no intraluminal calculi. There are no diverticula. There is no evidence of chronic bladder outlet obstruction. There is no evidence of urinary bladder distention to suggest urinary retention. The other pelvic structures are unremarkable. The bony and vascular structures are unremarkable for the patient's age. IMPRESSION: Left-sided pneumonia. Follow-up to complete radiographic resolution recommended. Other chronic findings as noted. This study was performed using dose reduction techniques to include automated exposure control and/or adjustment of the mA and/or kV according to patient size. DICTATED BY: HENRY FRANKS MD DATE: 11/12/24 1527 REASON: renal failure ORDERING PHYSICIAN: NAHID RICCI MD PROCEDURE: RENAL - US RENAL SONOGRAM Exam Type: US RENAL SONOGRAM Clinical Information: renal failure Comparison: None Findings and impression: Right kidney is obscured. Left kidney is normal in size and echogenicity and vascularity. No hydronephrosis. DICTATED BY: HENRY FRANKS MD DATE: 11/12/24 1233 REASON: sepsis ORDERING PHYSICIAN: NAHID RICCI MD PROCEDURE: CXR1VW - CHEST 1VW Exam Type: CHEST 1VW Clinical Information: sepsis Comparison: None Findings: Status post median sternotomy. Ill-defined infiltrates of the left lower lobe are seen consistent with pneumonia. . The heart is large in size. The bony and soft tissue structures show no worrisome pathology. IMPRESSION: Findings consistent with pneumonia. Follow-up is advised. DICTATED BY: HENRY FRANKS MD DATE: 11/12/24 1052 REASON: sepsis ORDERING PHYSICIAN: NAHID RICCI MD PROCEDURE: ABD 1VW - ABD 1VW Exam Type: ABD 1VW Clinical Information: sepsis Comparison: None Findings: Abdomen demonstrates no evidence of pathologic calcification or soft tissue mass. There are no radiopacities to suggest calculous disease. The intestinal gas pattern is within normal limits without evidence of dilatation to suggest obstruction or adynamic ileus. The bony structures are unremarkable. There is residual contrast within bowel. IMPRESSION: Normal abdomen. DICTATED BY: HENRY FRANKS MD DATE: 11/12/24 1036 REASON: hypoxia ORDERING PHYSICIAN: ELIJAH FERNANDEZ DO PROCEDURE: CXR1VW - CHEST 1VW FRONTAL CHEST RADIOGRAPH INDICATION: hypoxia COMPARISON: 11/10/2024 FINDINGS/IMPRESSION: cardiac monitor technician leads overlie the field of view. Median sternotomy wires are in appropriate alignment. Patient positioning is not optimal, but the radiologic examination is still believed to be of reasonable diagnostic quality. Stable heart size without pulmonary vascular congestion. Unchanged left lung greater than right midlung pulmonary edema or other airspace disease, without pneumothorax. DICTATED BY: DARLENE DEAN MD DATE: 11/11/24 0291 ASSESSMENT: Hyponatremia Acute renal failure COPD exacerbation Pulmonary edema Uncontrolled diabetes mellitus type 2 Leukocytosis Atrial fibrillation Coronary artery disease Hypothyroidism Dementia PLAN: Labs, diagnostic, radiologic exams reviewed and interpreted by myself and supervising physician. We have reviewed external records in detail Patient remains poor candidate for any form of renal replacement therapy due to underlying conditions. Any form of renal replacement therapy is a high-risk procedure There was no family at the time of our visit. Patient may benefit from NGT placement if dysphagia is present. Recommend urology follow up for Rivas catheter management Continue with renally dose antibiotics as per ID We will continue to monitor the patient closely Require close monitoring of renal function and electrolytes Order CBC, CMP, and electrolytes in am BiPAP as necessary, for respiratory distress Monitor blood pressure adjust medication doses as needed Continue with the renally dose antibiotic Avoid hypotensive episodes May use Dilaudid 0.5 mg IV every 6 hours as needed for severe pain Monitor blood sugars Strict intake, output, and daily weight should be monitored Please renally adjust medications Avoid nephrotoxic and nonsteroidal drugs Avoid contrast if possible Will continue to monitor renal function, anemia, electrolytes Treatment plan discussed with patient Questions were answered We have discussed with the other team physicians in detail about the care plan We will continue to monitor the patient closely ATTESTATION BY PHYSICIAN I have seen and examined the patient. I reviewed the documentation, medical decision making, and treatment plan as noted by the mid-level provider above. I agree with the findings and plan of care. DAXA NARVAEZ MD, ELIZABETH FNP Nov 15, 2024 14:07
--- NOTE | 2024-11-15 14:48 | PN ---
[facility] PROGRESS NOTE Date of Service: Nov 15, 2024 Time of Service: 14:43 SUBJECTIVE: 11/12 patient is seen and examined at bedside, case discussed with the RN. No family members at bedside during my visit. BP 109/54, patient is still tachycardic, heart rate between 105-117, atrial fibrillation. Patient is saturating 97% on 3 L via nasal cannula. Blood tests reviewed, CBC with a hem oglobin 8.4, hematocrit 29.4, WBC 15.4, platelet count of 253. CMP with sodium 160, potassium 3.5, BUN of 159, creatinine 2.5. Chest x-ray showing left lung greater than right mid lung pulmonary edema or other space disease, without pneumothorax. 11/13 patient seen and examined at bedside, case discussed with RN, no acute events overnight, patient more awake today compared to yesterday. He remains on Cardizem drip. Still mildly tachycardic, BP stable. Rivas catheter inserted, creatinine 11.9. The patient with a history of hypercoagulable state, not a candidate for anticoagulation secondary to history of recurrent anemia. Patient remains on metoprolol 12.5 mg p.o. b.i.d.. Patient getting broad-spectrum IV antibiotics at the time my visit, continue to follow results of septic workup. We will attempt to call the daughter over the phone to discuss considering hospice services as the prognosis of the patient is poor and guarded. 11/14 patient is seen and examined at bedside this morning, case discussed with the RN, no acute events overnight. During my visit the patient is awake, however due to advanced dementia not verbalizing, he does not following simple commands. 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 Total urine output during last night 12 hours shift 100 mL. He remains on Cardizem drip. Heart rate of 101, BP 105/55, afebrile. On nasal cannula at 3 L saturating 93-96%. WBC 20.2. Hemoglobin 7.1, hematocrit 24.7. Sodium slowly trending down 150. Potassium 3.0. Creatinine remains elevated 11.2. Magnesium 1.5. Urine culture positive for Pseudomonas aeruginosa. Patient getting IV antibiotics at the time of my visit. Daughter not present at the bedside during my visit, she has been updated over the phone since admission. All questions has been answered. I recommended to consider hospice as the patient a candidate for renal replacement therapy. We will discuss again today. 11/15 patient seen at bedside, no acute events overnight. Patient doing better with p.o. intake with daughter feeding at bedside. Plan is to transition back to senior living. Blood pressure has been on the low side of normal with systolics ranging between 80 up to 87, saturating well on 3 L nasal cannula. We will start midodrine 5 mg t.i.d. WBC increased from 20.2 up to 24.8, hemoglobin improved from 7.1 up to 7.3, creatinine improved from 11.2 down to 10.7, we will continue with D5 water for 24 hours more and consider discontinuing tomorrow to see how patient does with p.o. supplementation. We will discuss with Nephrology as they may want further IV fluids before discontinuing. REVIEW OF SYSTEMS CONSTITUTIONAL: Denies fevers, chills, or night sweats. No unintentional weight loss reported. NEUROLOGICAL: Denies headache, amaurosis fugax, motor weakness, sensory deficit, vertigo/spinning sensation, gait abnormalities, or tremors. ENT: No hearing loss, otalgia, otorrhea, rhinitis, rhinorrhea, hoarseness, or sore throat. CARDIOVASCULAR: Denies any exertional angina, dyspnea on exertion, orthopnea, paroxysmal nocturnal dyspnea, palpitations, life-threatening arrhythmias, claudication. PULMONARY: Denies any shortness of breath, cough, phlegm/sputum, hemoptysis, pleuritic chest pain. SLEEP: Denies morning headaches, daytime somnolence or napping. Denies difficulty falling asleep, staying asleep, waking from sleep. Denies knowledge of snoring. GASTROINTESTINAL: Denies any type of dysphagia to either liquids or solids. Denies nausea, vomiting, pyrosis, early satiety, abdominal pain, diarrhea, constipation, or changes in stool consistency or caliber. Denies coffee-ground emesis, hematemesis, hematochezia, or melanotic stools. GENITOURINARY: Denies frequency, urgency, nocturia, hematuria or incontinence (Storage/Irritative symptoms.) Low urinary stream, straining to void, urinary intermittency or hesitancy, splitting of the voiding stream, terminal dribbling. ENDOCRINOLOGIC: Denies polyuria, polydipsia, polyphagia or heat/cold intolerances. HEMATOLOGIC: Denies thrombophilia/previous clots, or coagulopathy/bleeding disorders. ONCOLOGIC: Denies personal history of malignancy. DERMATOLOGIC: Denies rashes or pruritus. PSYCHIATRIC: Denies any suicidal or homicidal ideation. Denies hallucinations. PHYSICAL EXAM GENERAL APPEARANCE: The patient comfortably in bed, not verbalizing, withdr awing to painful stimulation, looks very dehydrated. NEUROLOGICAL: Cranial nerves II-XII grossly intact. Motor is 5/5 in bilateral upper and lower extremities proximal to distal. No sensory deficits. HEENT: Face is symmetric. Pupils are equal and reactive. Extraocular movements are intact. NECK: Supple. No JVD. No thyromegaly. No submental, submandibular, pre- /postauricular, occipital or supraclavicular lymphadenopathy. CHEST: Normal chest expansion. No Telemetry. LUNGS: Absence of any rales, rhonchi or any wheezing. CARDIOVASCULAR: Regular. S1 and S2 normal. No appreciable rubs, murmurs or gallops. ABDOMEN: Soft, nontender, and nondistended. There is no rebound, voluntary guarding, or rigidity. : Deferred. No Rivas. EXTREMITIES: Non-edematous and not cyanotic. No clubbing. Good capillary refill. SKIN: No skin breakdown. Vital Signs (last 8hr) Date Time Temp Pulse Resp B/P (MAP) Pulse Ox O2 Delivery O2 Flow Rate FiO2 11/15/24 11:49 96.4 98 16 87/42 95 Nasal Cannula 3.0 11/15/24 11:11 101 18 11/15/24 08:35 98.2 63 16 80/51 100 Nasal Cannula 2.0 11/15/24 08:00 100 Nasal Cannula* 3 32 LABS: Laboratory: Test 11/15/24 11:09 11/15/24 03:29 11/14/24 04:49 Range/Units Whole Blood Glucose 189 H 70-110 MG/DL White Blood Count 24.8 H 4.8-10.8 K/uL Red Blood Count 2.77 L 4.50-6.20 MIL/uL Hemoglobin 7.3 L 14.0-18.0 g/dL Hematocrit 24.9 L 42-54 % Mean Corpuscular Volume 89.9 79-99 fL Mean Corpuscular Hemoglobin 26.4 L 27.0-33.0 pg Mean Corpuscular Hemoglobin Concent 29.3 L 32.0-36.0 g/dL Red Cell Distribution Width 17.6 H 11.0-15.5 % Platelet Count 181 130-400 K/uL Mean Platelet Volume 9.3 7.5-10.5 fL Nucleated Red Blood Cells 0.4 H 0.0-0.19 % Sodium Level 144 136-145 mmol/L Potassium Level 3.2 L 3.5-5.1 mmol/L Chloride Level 99 L 101-111 mmol/L Carbon Dioxide Level 30 21-32 mmol/L Blood Urea Nitrogen 149 *H 7-18 mg/dL Creatinine 10.7 *H 0.5-1.3 mg/dL Glomerular Filtration Rate Calc 4 >90 mL/min Random Glucose 103 70-105 mg/dL Total Calcium 6.9 L 8.5-10.1 mg/dL Magnesium Level 1.40 L 1.80-2.40 mg/dL Total Bilirubin 0.4 0.2-1.0 mg/dL Aspartate Amino Transf (AST/SGOT) 42 H 10-37 U/L Alanine Aminotransferase (ALT/SGPT) < 6 L 12-78 U/L Alkaline Phosphatase 72 50-136 U/L Total Protein 6.3 6.0-8.3 g/dL Albumin 1.5 L 3.5-5.0 g/dL Segmented Neutrophils % 78 H 40-70 % Lymphocytes % (Manual) 6 L 22-44 % Monocytes % (Manual) 7 2-9 % Eosinophils % (Manual) 9 H 1-6 % Differential Comment MANUAL DIFFERENTIAL White Cell Morphology Comment Platelet Morphology Comment See comments Red Blood Cell Morphology ANISO 1+ Phosphorus Level 6.9 H 2.5-4.9 mg/dL Current Medications Medications (Trade) Dose Ordered Sig/Drew Route PRN Reason Start Time Stop Time Status Last Admin Dose Admin Acetaminophen (TYLenol 650MG SUPPOSITORY) 650 mg Q6H PRN RC MILD PAIN (1-3) 11/11/24 20:30 12/11/24 20:29 Albuterol (DUOneb) 1 UDVIAL [id number] IH 11/12/24 00:00 12/12/24 00:00 11/15/24 11:10 1 UDVIAL Albuterol Sulfate (Proventil 0.083% 2.5mg/3ml) 2.5 mg [id number] IH 11/13/24 18:00 11/13/24 17:37 DC Albuterol Sulfate (Proventil 0.083% 2.5mg/3ml) 2.5 mg [id number] PRN IH SHORTNESS OF BREATH 11/13/24 17:30 12/13/24 17:59 Artificial Tears (Artificial Tears) 1 DROP OR AD Q2H PRN OU DRY EYES 11/13/24 14:30 12/13/24 14:29 11/13/24 17:32 1 DROP Atorvastatin Calcium (LIPItor 20MG) 20 mg HS PO 11/13/24 21:00 12/13/24 20:59 11/14/24 21:06 20 MG Budesonide (Pulmicort 0.5 Mg/2ml) 0.5 mg BIDRESP IH 11/12/24 06:00 12/12/24 05:59 11/15/24 06:24 0.5 MG Ceftriaxone Sodium (ROCEphine 1G INJ) 1 gm Q24H IVPB 11/12/24 10:00 11/12/24 14:30 DC 11/12/24 09:55 1 GM Chlorhexidine Gluconate (Peridex) 15 ml TID MM 11/13/24 21:00 11/27/24 20:59 11/15/24 09:31 15 ML Dextrose 1,000 ml @ 100 mls/hr Q10H IV 11/13/24 13:30 12/13/24 13:29 11/15/24 06:35 100 MLS/HR Diltiazem HCl 125 mg/Sodium Chloride 125 ml @ 0 mls/hr PROTOCOL IV 11/12/24 11:00 11/14/24 17:38 DC 11/14/24 06:32 5 MLS/HR Donepezil HCl (ARIcept 5MG TAB) 5 mg DAILY PO 11/14/24 09:00 12/14/24 08:59 11/15/24 09:30 5 MG Doxycycline Hyclate 250 ml @ 125 mls/hr Q12H IV 11/12/24 11:00 11/12/24 14:31 DC 11/12/24 11:03 125 MLS/HR Ferrous Sulfate (Ferrous Sulfate) 1 mg BIDMEALS PO 11/13/24 17:34 11/14/24 13:14 DC Ferrous Sulfate (Ferrous Sulfate) 325 mg BIDMEALS PO 11/14/24 17:00 12/13/24 17:33 11/15/24 09:30 325 MG Home Med (Home Medication) (Dulaglutide (Trulicity) 0.5 ML) QWEEK SQ 11/20/24 09:00 12/20/24 08:59 Hydralazine HCl (APRESOLine 20MG INJ) 5 mg Q6H PRN IV ADMINISTER FOR SBP > 160 11/12/24 10:00 11/12/24 09:50 DC Hydralazine HCl (APRESOLine 20MG INJ) 5 mg Q6H PRN IV For:SBP above 160;DBP above 90 11/12/24 14:30 12/12/24 14:29 Hydralazine HCl (APRESOLine 20MG INJ) 10 mg Q6H PRN IV For:SBP above 160;DBP above 90 11/11/24 20:30 11/12/24 09:44 DC Insulin Human Regular (humuLIN R 100 UNIT/ML 3ML) INSULIN SLIDING SCAL... ACHS SQ 11/11/24 21:00 11/12/24 09:44 DC 11/12/24 09:26 3 UNIT Insulin Human Regular (humuLIN R 100 UNIT/ML 3ML) INSULIN SLIDING SCAL... ACHS SQ 11/12/24 16:30 12/12/24 16:29 11/14/24 21:06 3 UNIT Iron Sucrose (VenoFER) 100 mg DAILY IV 11/12/24 13:00 11/12/24 14:07 DC Iron Sucrose (VenoFER) 100 mg DAILY IV 11/12/24 14:30 11/14/24 09:01 DC 11/14/24 09:38 100 MG Lactulose (Constulose 20gm/ 30ml Udcup) 20 gm BID PRN PO CONSTIPATION 11/15/24 11:00 12/15/24 10:59 Levothyroxine Sodium (SYNTHroid 100MCG TAB) 100 mcg SYN PO 11/14/24 06:30 12/14/24 06:29 11/15/24 05:33 100 MCG Memantine (NAmenDA 5 MG TAB) 10 mg DAILY PO 11/14/24 09:00 12/14/24 08:59 11/15/24 09:30 10 MG Meropenem (Merrem 500mg) 500 mg DAILY IV 11/15/24 09:00 11/14/24 14:11 DC Meropenem (Merrem 500mg) 500 mg Q12H9 IV 11/12/24 14:30 11/13/24 12:54 DC 11/13/24 09:46 500 MG Meropenem (Merrem 500mg) 500 mg Q24H IV 11/14/24 09:00 11/24/24 08:59 11/15/24 09:29 500 MG Meropenem (Merrem 500mg) 500 mg Q24H IV 11/14/24 13:30 11/14/24 13:15 DC Metoprolol Tartrate (loprESSOR) 5 mg Q6H PRN IV INCREASED HEART RATE 11/12/24 10:00 12/12/24 09:59 Metoprolol Tartrate (loprESSOR) 12.5 mg BID PO 11/12/24 10:00 12/12/24 09:59 11/14/24 21:06 12.5 MG Morphine Sulfate (morPHINE 2MG SYG) 2 mg Q4H PRN IVP SEVERE PAIN (7-10) 11/11/24 20:30 11/12/24 09:44 DC Ondansetron HCl (zoFRAN 4MG INJ) 4 mg Q6H PRN IV NAUSEA/VOMITING 11/11/24 20:30 12/11/24 20:29 Pharmacy Profile Note (Pharmacy Communication) 1 each AD MISC 11/12/24 21:00 11/13/24 14:28 DC Sertraline HCl (ZOloft 50 mg tab) 100 mg DAILY PO 11/14/24 09:00 12/14/24 08:59 11/15/24 09:30 100 MG Sodium Chloride 1,000 ml @ 50 mls/hr Q20H IV 11/11/24 20:30 11/13/24 13:33 DC 11/13/24 11:53 50 MLS/HR Sodium Chloride 1,000 ml @ 120 mls/hr Q8H20M IV 11/12/24 08:30 11/12/24 08:27 DC Thiamine HCl (Vitamin B-1) 100 mg DAILY IVP 11/13/24 09:00 12/13/24 08:59 11/15/24 09:29 100 MG DIAGNOSTICS / RADIOLOGY: [ ] ASSESSMENT: Acute COPD exacerbation, POA Acute Pulmonary edema, POA NATASHA on CKD, POA Possible sepsis due to pneumonitis, POA UTI secondary to Pseudomonas aeruginosa, POA History of penile cancer, with the indwelling catheter in place Atrial fibrillation with a RVR Uncontrolled Diabetes mellitius type2, POA Leukocytosis, POA Hypernatremia, POA Hyperlipidemia Dementia Hypothyroidism Anemia of chronic disease can not exclude acute GI bleed PLAN: Patient to be admitted to the PCU Continue the patient on floor tech Continue the patient on Cardizem drip Echocardiogram to evaluate ejection fraction LVEF 55-60% Continue to follow Cardiology input recommendation Renal function remains elevated, the patient with minimal urine output, not a candidate for renal replacement therapy. Urology consulted for possible exchange of catheter. Case discussed. Continue the patient on meropenem IV, continue to follow ID input and recommendations. We will discuss with the daughter again today to consider hospice services. NEURO: Minimize central acting medications as possible. Fall Precautions. Well lighted room through the day and minimize interruptions through the night to prevent acute delirium. PULMONARY: Supplemental 02 as needed BiPAP as necessary, for respiratory distress Titrate Fio2 to keep Spo2 > or = 90% DuoNebs and CPT as needed IS hourly while awake for pulmonary hygiene prn Out of bed to chair as tolerated Maintain aspiration precautions at all times CARDIOVASCULAR: Follow hemodynamics. Vital signs per facility protocol GI & NUTRITION: Continue nutritional support Aspirations precautions Prokinetic agents and laxatives as needed KIDNEYS & ELECTROLYTES: Strict monitoring of intake and output Daily weights Avoid nephrotoxic agents Monitor electrolytes and replace as needed Goal urine output of 30mL/hr or 0.5mL/kg/hr Medications to be dosed according to renal function. Avoid contrast if possible ENDOCRINE: Maintain blood glucose between 100-180 at all times. Insulin sliding scale for blood glucose management Hypoglycemia and hyperglycemia protocol in place INFECTIOUS DISEASE: Trend temperature, WBC and procalcitonin level Follow cultures, deescalate antibiotics as soon as possible. Panculture if new onset fever HEMATOLOGY & COAGULATION: Monitor H&H. Keep Hgb > 7 Transfuse 1 unit of PRBC for Hgb < 7 Transfuse 1 pack of platelets of platelets < 20, 000 Watch for any signs and symptoms of bleeding SKIN: Pressure ulcer prevention per facility protocol Specialty mattress as needed ORTHO/REHAB Continue PT/OT PRN: MEDICATIONS Tylenol 650 mg po every 4 hrs for fever zofran 4 mg IV every 6 hrs for n/v Hydralazine 5 mg IV every 4 hrs systolic pressure > 160 bowel regiment: lactulose 20 gm PO BID PRN constipation Supportive measures: Continue GI and DVT prophylaxis Disposition: Pending improvement in clinical condition. Patient may benefit from hospice services. We will discuss again with the daughter today. All questions answered time spent: > 35 min FABIOLA EMANUEL MD Nov 15, 2024 14:48
--- NOTE | 2024-11-15 15:00 | NUR ---
HOLD PT- pt BP 78/25 mmHg; RN present and notified. PT team advised.
[2024-11-15] MEDS: miDODRine HCL 5 MG TABLET PO SCH (15:26)
--- NOTE | 2024-11-15 15:34 | NUR ---
MEDICATED WITH MIDODRINE 5MG PO. WILL RE EVALUATE BP.
[2024-11-15] MEDS: LACTULOSE 20 GM/30 ML UDCUP PO PRN (15:36)
--- NOTE | 2024-11-15 15:37 | NUR ---
UNABLE TO DETERMINE LAST BOWEL MOVEMENT...MEDICATED WITH LACTULOSE 30 ML'S. WILL CONTINUE TO MONITOR.
[2024-11-15] MEDS: acetaMINOPHEN 325 MG/10.15ML UDCUP PO PRN (18:32)
--- NOTE | 2024-11-15 19:41 | PN ---
[facility] PROGRESS NOTE Date Patient Seen: Nov 15, 2024 Time of Visit: 19:34 Supervising Physician: Dr. Del Cid Primary Care Physician: Dr. Ware Outpatient Specialists: [ ] Inpatient Consults: Pulmonary, cardiology, Nephrology PROBLEM LIST: Acute respiratory failure currently requiring nasal cannula supplementation. Hospital-acquired pneumonia. Acute urinary tract infection, with the presence of indwelling catheter. Culture positive for Pseudomonas aeruginosa Acute sepsis and shock suspect from pulmonary source versus urinary tract source. Acute hypernatremia. Dehydration. Atrial fibrillation with RVR, hypercoagulable state, not on anticoagulation due to recurrent anemia CKD stage V Hypothyroidism, TSH is elevated at 26.56 Iron deficiency Anemia Hypertension Dyslipidemia Diabetes mellitus type 2 History of SVT with successful ablation CAD s/p remote CABG Critical aortic stenosis s/p bioprosthetic valve replacement 06/2015 Dementia INTERVAL HISTORY: 11/13/2024: At the time of my evaluation, the patient is in his assigned room. He remains generally confused, not verbally interactive and unaware of his surroundings. Respiratory kowalski the patient is maintaining optimal oxygenation and saturation on nasal cannula 2 L. On the monitor, the patient remains normotensive, but tachycardic. He is currently on a Cardizem drip for management of his AFib and Cardiology remains on board. The patient failed his bedside swallow study and is not a candidate for oral feedings. The patient may need a NGT if RP permits nutritional support. The patient continues to void through a Rivas catheter. On laboratory, the WBC count improved from 17.4 yesterday to 16.0 today. He continues on antibiotic coverage currently on Meropenem. Also, the sodium count remains elevated at 160, potassium is low 3.4, BUN 161 and a creatinine of 11.9 with a GFR of four. The patient continues on IV infusion with D5 at 100 cc/hour. Blood cultures are currently showing no growth and urine culture showing Gram-negative rods. No new imaging for review. No other complaint. 11/14/2024: At the time of my evaluation, the patient was lying in bed and not following commands. Respiratory kowalski the patient is maintaining optimal oxygenation and saturation on nasal cannula 2 L. On the monitor, the patient remains normotensive, but tachycardic. Cardizem drip has been stopped and the patient is now on metoprolol 12.5 b.i.d. The patient failed his bedside swallow study and is currently NPO. The patient continues to void through a Rivas catheter. On laboratory, the WBC count worsened to 20.2 And H&H dropped to 70.1/24.5. On chemistry, the patient has widespread electrolyte derangement with a sodium of 150, potassium of 3.0, chloride of 105, CO2 of 31, renal parameters showed BUN of147 and a creatinine of 11.2 with a GFR of 4. He continues on antibiotic coverage currently on Meropenem. The patient continues on IV infusion with D5 at 100 cc/hour. Blood cultures are currently showing no growth and urine culture showing Pseudomonas aeruginosa. No new imaging for review. No other complaint. 11/15/2024: At the time of my evaluation, the patient was lying in bed and not following commands. Respiratory kowalski the patient is maintaining optimal oxygenation and saturation on nasal cannula 2 L. On the monitor, the patient remains normotensive, but tachycardic, currently on metoprolol 12.5 b.i.d. He remains NPO. The patient continues to void through a Rivas catheter. On laboratory, the WBC count worsened to 24.8 from 20.2. H&H today 7.3/24.9. On chemistry, the electrolyte derangement is slowly improvement with a sodium today of 144, potassium of 3.2, chloride of 99, CO2 of 30, renal parameters showed BUN of 149 and a creatinine of 10.7 with a GFR of 4. He continues on antibiotic coverage currently on Meropenem. The patient continues on IV infusion with D5 at 100 cc/hour. Blood cultures are currently showing no growth and urine culture showing Pseudomonas aeruginosa. No new imaging for review. No other complaint. REVIEW OF SYSTEMS: 12 point ROS reviewed with patient. Pertinent positives mentioned above. Otherwise negative. PHYSICAL EXAM: GENERAL: alert, weak, awake oriented x self HEENT: EOMI, Sclera non icteric, moist mucosa NECK: Supple, no JVD, trachea midline LUNGS: Clear breath sounds bilaterally. No wheezes HEART: Regular rate and rhythm. Normal S1 and S2, without murmurs ABD: Abdomen soft, nontender. Bowel sounds present EXT: No clubbing cyanosis or edema NEURO: Unable to carry out neurologic evaluation as the patient is not following commands. Vital Signs (last 8hr) Date Time Temp Pulse Resp B/P (MAP) Pulse Ox O2 Delivery O2 Flow Rate FiO2 11/15/24 18:47 107 18 N/Cannula Low lpm 3.0 32 11/15/24 18:47 107 18 11/15/24 17:00 98.1 102 18 90/59 95 Nasal Cannula 3.0 11/15/24 11:49 96.4 98 16 87/42 95 Nasal Cannula 3.0 LABS: Hematology Labs: Test 11/15/24 03:29 11/14/24 04:49 Range/Units White Blood Count 24.8 H 4.8-10.8 K/uL Red Blood Count 2.77 L 4.50-6.20 MIL/uL Hemoglobin 7.3 L 14.0-18.0 g/dL Hematocrit 24.9 L 42-54 % Mean Corpuscular Volume 89.9 79-99 fL Mean Corpuscular Hemoglobin 26.4 L 27.0-33.0 pg Mean Corpuscular Hemoglobin Concent 29.3 L 32.0-36.0 g/dL Red Cell Distribution Width 17.6 H 11.0-15.5 % Platelet Count 181 130-400 K/uL Mean Platelet Volume 9.3 7.5-10.5 fL Nucleated Red Blood Cells 0.4 H 0.0-0.19 % Segmented Neutrophils % 78 H 40-70 % Lymphocytes % (Manual) 6 L 22-44 % Monocytes % (Manual) 7 2-9 % Eosinophils % (Manual) 9 H 1-6 % Differential Comment MANUAL DIFFERENTIAL White Cell Morphology Comment Platelet Morphology Comment See comments Red Blood Cell Morphology ANISO 1+ Chemistry Labs: Test 11/15/24 15:53 11/15/24 03:29 11/14/24 04:49 Range/Units Whole Blood Glucose 192 H 70-110 MG/DL Sodium Level 144 136-145 mmol/L Potassium Level 3.2 L 3.5-5.1 mmol/L Chloride Level 99 L 101-111 mmol/L Carbon Dioxide Level 30 21-32 mmol/L Blood Urea Nitrogen 149 *H 7-18 mg/dL Creatinine 10.7 *H 0.5-1.3 mg/dL Glomerular Filtration Rate Calc 4 >90 mL/min Random Glucose 103 70-105 mg/dL Total Calcium 6.9 L 8.5-10.1 mg/dL Magnesium Level 1.40 L 1.80-2.40 mg/dL Total Bilirubin 0.4 0.2-1.0 mg/dL Aspartate Amino Transf (AST/SGOT) 42 H 10-37 U/L Alanine Aminotransferase (ALT/SGPT) < 6 L 12-78 U/L Alkaline Phosphatase 72 50-136 U/L Total Protein 6.3 6.0-8.3 g/dL Albumin 1.5 L 3.5-5.0 g/dL Phosphorus Level 6.9 H 2.5-4.9 mg/dL DIAGNOSTICS / RADIOLOGY RESULTS: [ ] PLAN During my visit, the patient remained in the emergency department awaiting bed assignment. He was generally confused and was not able to participate in in his bedside assessment. There was no family members present at the bedside during my visit. The patient will continue on oxygen supplementation via nasal cannula and we will adjust as necessary. Cardiac-kowalski, he is hemodynamically stable and was started on Cardizem due to the recent AFib RVR event. Currently, the patient will remain NPO. Bedside swallow exam was ordered and we will possibly require an MBSS. The patient will remain on IV half NS and we will follow the sodium trend. The patient initially received antibiotic coverage with Rocephin and doxycycline. Hospitalist team brought in covered with IV Merrem. We will continue this regimen for now and we will follow the culture reports. We will monitor the patient's progress and response to management. We will repeat surveillance labs in the morning. We will continue to provide general supportive care, GI and DVT prophylaxis. Appreciate the opportunity given to participate in patient care. Further orders per attending MD and hospital course. 11/13/2024: For now, going to continue current management for the patient. For going to continue monitoring his mental status. We will continue oxygen supplementation via the nasal cannula and we will adjust as necessary. The patient will remain on Cardizem drip and we will follow the advice of the box office attendant, who made mentioned that the AFib with RVR is likely due to his infectious process. 2D echo performed showed a LVEF of 55-60%. There was inability to assess the diastolic function. The patient will likely require a NGT for further feeding due to his high risk for aspiration if the daughter agrees. We will continue with D5 at 100 cc/hour, as ordered by the metal punch press operator for rehydration and correction of his electrolyte imbalance. We will continue antibiotic therapy with IV Merrem and follow the urine and blood culture results. I do agree with the box office attendant's to revisit with the patient's daughter who is the RP to reinitiate hospice care as the patient is a DNR and she is declining any aggressive care such as hemodialysis that was previously offered. We will monitor the patient's progress and response to management. We will continue to provide general supportive care, GI and DVT prophylaxis. Further orders per attending MD and hospital course. 11/14/2024: For now, going to continue current management for the patient. Will continue monitoring his mental status. We will continue oxygen supplementation via the nasal cannula and we will adjust as necessary. We will continue to m onitor for any arrhythmias or changes in vital signs. The patient will remain NPO and continue on D5 at 100 cc/hour, as ordered by the metal punch press operator for rehydration and correction of his electrolyte imbalance. We will continue antibiotic therapy with IV Merrem, we will follow the WBC trend. Considering his condition is critical and prognosis is poor, primary MD discuss with the byron key who has now made the patient DNR/DNI. We will monitor the patient's progress and response to management. We will continue to provide general supportive care, GI and DVT prophylaxis. Further orders per attending MD and hospital course. 11/15/2024: For now, going to continue current management for the patient. Will continue monitoring his mental status. We will continue oxygen supplementation via the nasal cannula and we will adjust as necessary. We will continue to monitor for any arrhythmias or changes in vital signs. The patient will remain NPO and continue on D5 at 100 cc/hour, as ordered by the metal punch press operator for gurpreet ydration and correction of his electrolyte imbalance. We will continue antibiotic therapy with IV Merrem, we will follow the WBC trend. Considering his condition is critical and prognosis is poor, primary MD discuss with the daughter who has now made the patient DNR/DNI. We will monitor the patient's progress and response to management. We will continue to provide general suppor tive care, GI and DVT prophylaxis. Further orders per attending MD and hospital course. NEURO: Minimize central acting medications as possible. Maintain fall precautions, adequate lighting during the day PULMONARY: Supplemental 02 as needed. Maintain aspiration precautions at all times CARDIOVASCULAR: Follow hemodynamics. Vital signs per facility protocol GI & NUTRITION: Continue with nutritional support. Continue stool softeners and laxatives as needed. KIDNEYS & ELECTROLYTES: Strict monitoring of intake, output and overall fluid balance. Avoid nephrotoxic medications to the extent possible. Medications to be dosed according to renal function. Monitor electrolytes and replace as needed ENDOCRINE: Maintain blood glucose between 100-180 at all times. Hypoglycemia protocol in place INFECTIOUS DISEASE: Trend temperature, WBC and procalcitonin level Follow cultures, deescalate antibiotics as soon as possible. Panculture if new onset fever ONCOLOGY/HEMATOLOGY/COAGULATION: Monitor for s/s of bleeding Monitor hemoglobin, coagulation studies as needed SKIN: Pressure ulcer prevention per facility protocol Specialty mattress ORTHO/REHAB: Continue PT/OT Prophylaxis: Continue GI and DVT prophylaxis Code Status: Full Resuscitation Disposition: TBD Other: Total patient care time exceeds 35 minutes excluding all procedures. TED SOSA NP Nov 15, 2024 19:41
[2024-11-16] VITALS (14 sets, daily range): BP systolic 90–105; BP diastolic 35–55; PULSE 70–117; RESP 18–19; TEMP 97.1–98.8; O2SAT 94–100
[2024-11-16 04:58] LABS: HEMATOCRIT 21.9 % (42-54); MEAN CORPUSCULAR HEMOGLOBIN 26.4 pg (27.0-33.0); MEAN CORPUSCULAR HGB CONC 30.1 g/dL (32.0-36.0); MEAN CORPUSCULAR VOLUME 87.6 fL (79-99); NUCLEATED RED BLOOD CELLS 0.2 % (0.0-0.19); RED BLOOD CELL COUNT(AUTO) 2.5 MIL/uL (4.50-6.20); RED CELL DISTRIBUTION WIDTH 17.4 % (11.0-15.5); WHITE BLOOD COUNT (AUTO) 20.4 K/uL (4.8-10.8)
[2024-11-16 05:17] LABS: ALBUMIN 1.4 g/dL (3.5-5.0); BILIRUBIN,TOTAL 0.3 mg/dL (0.2-1.0); MAGNESIUM 1.3 mg/dL (1.80-2.40); PHOSPHORUS 7.5 mg/dL (2.5-4.9); TOTAL PROTEIN, SERUM 5.9 g/dL (6.0-8.3)
[2024-11-16 05:25] LABS: CREATININE 10.2 mg/dL (0.5-1.3); POTASSIUM 2.8 mmol/L (3.5-5.1)
[2024-11-16] MEDS ORDERED: PoTASSium chloRIDE 10MEQ SR 10 MEQ/TAB TAB.SR.24H PO ONE (06:00)
--- NOTE | 2024-11-16 06:18 | PN ---
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 He also has an ulcer sub-fifth metatarsophalangeal joint on the left. He also has an ulcer to the left heel. Hemoglobin is 6.6, white count is 20.4. Potassium is 2.8, BUN 140, creatinine 10.2. T-max 98.8, pulse 117, respirations 18. The patient is currently receiving IV meropenem. The patient is being followed by the Nephrology Service. He has a history of atrial fibrillation, on chronic anticoagulation therapy; coronary artery disease; aortic stenosis; diabetes; chronic obstructive pulmonary disease; hyperlipidemia; chronic kidney disease; dementia; hypothyroidism; history of osteomyelitis; history of ulcers to the heel and forefoot on the left. The patient apparently had his hospice status recently revoked. His urine cultures are positive for pseudomonas aeruginosa, being followed for hyponatremia, anemia, acute renal failure, chronic obstructive pulmonary disease, pulmonary edema, uncontrolled diabetes, leukocytosis, atrial fibrillation, coronary artery disease, hypothyroidism and dementia. The patient is felt to be a poor candidate for any form of renal replacement by the Nephrology Service. OBJECTIVE: On examination today, nonpalpable pedal pulses to his feet bilaterally, dry gangrene to the left fifth toe, dry necrotic eschar sub fifth metatarsophalangeal joint on the left, dry necrotic eschar to the posterior heel on the left. No abscesses or ascending cellulitis. Ulcer to the left heel is approximately 35 x 35 mm, black eschar base. No exposure of deeper structures. ASSESSMENT: An 88-year-old male, stage V renal insufficiency, considered a poor candidate for renal replacement per the Nephrology Service, being followed for atrial fibrillation, anemia, coronary artery disease, peripheral vascular disease, aortic stenosis, type 2 diabetes, dementia, chronic obstructive pulmonary disease, hyperlipidemia, chronic kidney disease, hypothyroidism, history of left fifth toe osteomyelitis, left heel ulcer. Apparently, the family has revoked his hospice status. He has been followed for hyponatremia, acute renal failure which is worsening, chronic obstructive pulmonary disease, uncontrolled diabetes, leukocytosis. The patient is being followed by primary care service. The patient is being followed by Cardiology and Nephrology Service. PLAN: We will continue with IV Merrem. Continue with offloading measures. Continue with Betadine dressings to his wounds to the left foot, fifth toe, fifth metatarsophalangeal joint and the left heel. Continue with offloading measures. Continue with IV antibiotics. Follow the patient closely while inhouse. TID: [id number] RECEIPT: [id number]
[2024-11-16] MEDS: PoTASSium chloRIDE 20MEQ ER 20 MEQ ERTAB PO ONE ×2 (07:00→10:14)
[2024-11-16 07:50] LABS: HEMATOCRIT 19.2 % (42-54)
--- NOTE | 2024-11-16 08:56 | CONS ---
INFECTIOUS DISEASE CONSULTATION NOTE DATE OF SERVICE: 11/14/2024 REQUESTING PHYSICIAN: Dr. Tonio Smith. REASON FOR CONSULTATION: Pneumonia and UTI. HISTORY OF PRESENT ILLNESS: This is an 88-year-old male with history of hypertension, coronary artery disease, diabetes mellitus, atrial fibrillation and ESRD, not on dialysis, who was brought from snf with shortness of breath and cough. The patient was in the ER two days earlier and found with pneumonia, was sent back. The patient was supposed to be on dialysis, which has been revoked by the family. The patient's urine culture growing Pseudomonas aeruginosa. Imaging of the lungs shows pneumonia. The patient was placed on meropenem. BUN was elevated at 147, creatinine of 11.2, potassium of 3.0, sodium of 150. The patient is not a candidate for dialysis by Nephrology. The patient is very confused and unable to give any history. PAST MEDICAL HISTORY: * Hypertension. * CAD. * UTI. * Diabetes mellitus. * . * Left foot osteomyelitis. * ESRD, not on dialysis. PAST SURGICAL HISTORY: * Cardiac catheterization. * CABG. * Toe amputation. ALLERGIES: No known drug allergy. CURRENT MEDICATIONS: Include: * Namenda. * Metoprolol. * Sotalol. * . * Tylenol. * Zofran. * Meropenem. SOCIAL HISTORY: The patient was in snf. No documented alcohol, tobacco, or illicit drug use. FAMILY HISTORY: Positive for diabetes mellitus. REVIEW OF SYSTEMS: Available history obtained from medical record. The patient is encephalopathic, not able to give any history. PHYSICAL EXAMINATION: GENERAL: Elderly male, conscious, awake. VITAL SIGNS: Temperature 96.8, pulse 90, respiratory rate 18, BP 91/71. EYES: No icterus. Pupils are equal and reactive. HENT: Dry oral mucosa. No oral thrush seen. NECK: Supple. No JVD or thyromegaly. LUNGS: Crackles bilaterally. No rhonchi. CARDIOVASCULAR: S1, S2 regular. No murmur heard. ABDOMEN: Obese, soft. Bowel sound is present. CENTRAL NERVOUS SYSTEM: The patient is awake, encephalopathic, nonverbal. SKIN: No rashes, no itchiness. LYMPHATIC:. There is left inguinal lymphadenopathy. BACK: No deformity, no pressure ulcer. LABORATORY DATA: Sodium 150, potassium 3.0, BUN 147, creatinine 11.3. WBC 20.2, hemoglobin 7.1, platelet 204. Urine culture growing Pseudomonas aeruginosa. Blood culture, no growth for two days. RADIOLOGY: CT chest shows left-sided pleural effusion. ASSESSMENT: An 88-year-old male with multiple problems, which include: * Pneumonia. * Urinary tract infection. * End-stage renal disease. * Hypokalemia. * Hypernatremia. * Anemia. * Encephalopathy. * Obesity. * Left foot osteomyelitis. PLAN: * Continue meropenem. * The patient should be . * Continue wound care. * Monitor electrolytes. * Continue pain management. * Continue DVT prophylaxis. * The patient's prognosis is extremely poor . TID: [id number] RECEIPT: [id number]
--- NOTE | 2024-11-16 11:03 | PN ---
[facility] PROGRESS NOTE Date of Service: Nov 16, 2024 Time of Service: 10:54 SUBJECTIVE: 11/12 patient is seen and examined at bedside, case discussed with the RN. No family members at bedside during my visit. BP 109/54, patient is still tachycardic, heart rate between 105-117, atrial fibrillation. Patient is saturating 97% on 3 L via nasal cannula. Blood tests reviewed, CBC with a he moglobin 8.4, hematocrit 29.4, WBC 15.4, platelet count of 253. CMP with sodium 160, potassium 3.5, BUN of 159, creatinine 2.5. Chest x-ray showing left lung greater than right mid lung pulmonary edema or other space disease, without pneumothorax. 11/13 patient seen and examined at bedside, case discussed with RN, no acute events overnight, patient more awake today compared to yesterday. He remains on Cardizem drip. Still mildly tachycardic, BP stable. Rivas catheter inserted, creatinine 11.9. The patient with a history of hypercoagulable state, not a candidate for anticoagulation secondary to history of recurrent anemia. Patient remains on metoprolol 12.5 mg p.o. b.i.d.. Patient getting broad-spectrum IV antibiotics at the time my visit, continue to follow results of septic workup. We will attempt to call the daughter over the phone to discuss considering hospice services as the prognosis of the patient is poor and guarded. 11/14 patient is seen and examined at bedside this morning, case discussed with the RN, no acute events overnight. During my visit the patient is awake, however due to advanced dementia not verbalizing, he does not following simple commands. 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 Total urine output during last night 12 hours shift 100 mL. He remains on Cardizem drip. Heart rate of 101, BP 105/55, afebrile. On nasal cannula at 3 L saturating 93-96%. WBC 20.2. Hemoglobin 7.1, hematocrit 24.7. Sodium slowly trending down 150. Potassium 3.0. Creatinine remains elevated 11.2. Magnesium 1.5. Urine culture positive for Pseudomonas aeruginosa. Patient getting IV antibiotics at the time of my visit. Daughter not present at the bedside during my visit, she has been updated over the phone since admission. All questions has been answered. I recommended to consider hospice as the patient a candidate for renal replacement therapy. We will discuss again today. 11/15 patient seen at bedside, no acute events overnight. Patient doing better with p.o. intake with daughter feeding at bedside. Plan is to transition back to senior care. Blood pressure has been on the low side of normal with systolics ranging between 80 up to 87, saturating well on 3 L nasal cannula. We will start midodrine 5 mg t.i.d. WBC increased from 20.2 up to 24.8, hemoglobin improved from 7.1 up to 7.3, creatinine improved from 11.2 down to 10.7, we will continue with D5 water for 24 hours more and consider discontinuing tomorrow to see how patient does with p.o. supplementation. We will discuss with Nephrology as they may want further IV fluids before discontinuing. 11/16 patient seen at bedside, no acute events overnight. He has low-grade tachycardia versus AFib ranging from 97 up to 106 beats per minute, saturating well on hemoglobin was 6.6 this morning, a repeat was ordered and was even lower at 5.8, we will transfuse 1 unit packed red blood cells, fecal occult has been ordered and if positive GI will be consulted. Potassium be increased from 3.2 down to 2.8, we will be repleted according to protocol. Creatinine improved from 10.7 down to 10.2, proximally 150 cc of urine output in the last 24 hours. We will follow up with Nephrology regarding further recommendations. Patient had some hypotension yesterday, was started on midodrine 5 mg 3 times daily. Blood pressure better regulated today systolics ranging from 90 up to 100. REVIEW OF SYSTEMS CONSTITUTIONAL: Denies fevers, chills, or night sweats. No unintentional weight loss reported. NEUROLOGICAL: Denies headache, amaurosis fugax, motor weakness, sensory deficit, vertigo/spinning sensation, gait abnormalities, or tremors. ENT: No hearing loss, otalgia, otorrhea, rhinitis, rhinorrhea, hoarseness, or sore throat. CARDIOVASCULAR: Denies any exertional angina, dyspnea on exertion, orthopnea, paroxysmal nocturnal dyspnea, palpitations, life-threatening arrhythmias, claudication. PULMONARY: Denies any shortness of breath, cough, phlegm/sputum, hemoptysis, pleuritic chest pain. SLEEP: Denies morning headaches, daytime somnolence or napping. Denies difficulty falling asleep, staying asleep, waking from sleep. Denies knowledge of snoring. GASTROINTESTINAL: Denies any type of dysphagia to either liquids or solids. Denies nausea, vomiting, pyrosis, early satiety, abdominal pain, diarrhea, constipation, or changes in stool consistency or caliber. Denies coffee-ground emesis, hematemesis, hematochezia, or melanotic stools. GENITOURINARY: Denies frequency, urgency, nocturia, hematuria or incontinence (Storage/Irritative symptoms.) Low urinary stream, straining to void, urinary intermittency or hesitancy, splitting of the voiding stream, terminal dribbling. ENDOCRINOLOGIC: Denies polyuria, polydipsia, polyphagia or heat/cold intolerances. HEMATOLOGIC: Denies thrombophilia/previous clots, or coagulopathy/bleeding disorders. ONCOLOGIC: Denies personal history of malignancy. DERMATOLOGIC: Denies rashes or pruritus. PSYCHIATRIC: Denies any suicidal or homicidal ideation. Denies hallucinations. PHYSICAL EXAM GENERAL APPEARANCE: The patient comfortably in bed, not verbalizing, withdrawing to painful stimulation, looks very dehydrated. NEUROLOGICAL: Cranial nerves II-XII grossly intact. Motor is 5/5 in bilateral upper and lower extremities proximal to distal. No sensory deficits. HEENT: Face is symmetric. Pupils are equal and reactive. Extraocular movements are intact. NECK: Supple. No JVD. No thyromegaly. No submental, submandibular, pre-/postauricular, occipital or supraclavicular lymphadenopathy. CHEST: Normal chest expansion. No Telemetry. LUNGS: Absence of any rales, rhonchi or any wheezing. CARDIOVASCULAR: Regular. S1 and S2 normal. No appreciable rubs, murmurs or gallops. ABDOMEN: Soft, nontender, and nondistended. There is no rebound, voluntary guarding, or rigidity. : Deferred. No Rivas. EXTREMITIES: Non-edematous and not cyanotic. No clubbing. Good capillary refill. SKIN: No skin breakdown. Vital Signs (last 8hr) Date Time Temp Pulse Resp B/P (MAP) Pulse Ox O2 Delivery O2 Flow Rate FiO2 11/16/24 08:36 98.8 106 18 100/48 96 Nasal Cannula 2.0 11/16/24 07:57 102 18 N/Cannula Low lpm 3.0 32 11/16/24 07:03 97 18 11/16/24 04:00 98.8 117 18 97/45 95 Nasal Cannula 3.0 LABS: Laboratory: Test 11/16/24 07:23 11/16/24 05:41 11/16/24 04:35 Range/Units Hemoglobin 5.8 *L 14.0-18.0 g/dL Hematocrit 19.2 *L 42-54 % Whole Blood Glucose 132 H 70-110 MG/DL White Blood Count 20.4 H 4.8-10.8 K/uL Red Blood Count 2.50 L 4.50-6.20 MIL/uL Mean Corpuscular Volume 87.6 79-99 fL Mean Corpuscular Hemoglobin 26.4 L 27.0-33.0 pg Mean Corpuscular Hemoglobin Concent 30.1 L 32.0-36.0 g/dL Red Cell Distribution Width 17.4 H 11.0-15.5 % Platelet Count 159 130-400 K/uL Mean Platelet Volume 9.4 7.5-10.5 fL Nucleated Red Blood Cells 0.2 H 0.0-0.19 % Sodium Level 139 136-145 mmol/L Potassium Level 2.8 *L 3.5-5.1 mmol/L Chloride Level 97 L 101-111 mmol/L Carbon Dioxide Level 25 21-32 mmol/L Blood Urea Nitrogen 140 *H 7-18 mg/dL Creatinine 10.2 *H 0.5-1.3 mg/dL Glomerular Filtration Rate Calc 5 >90 mL/min Random Glucose 126 H 70-105 mg/dL Total Calcium 6.2 L 8.5-10.1 mg/dL Phosphorus Level 7.5 H 2.5-4.9 mg/dL Magnesium Level 1.30 L 1.80-2.40 mg/dL Total Bilirubin 0.3 0.2-1.0 mg/dL Aspartate Amino Transf (AST/SGOT) 38 H 10-37 U/L Alanine Aminotransferase (ALT/SGPT) 8 L 12-78 U/L Alkaline Phosphatase 76 50-136 U/L Total Protein 5.9 L 6.0-8.3 g/dL Albumin 1.4 L 3.5-5.0 g/dL Current Medications Medications (Trade) Dose Ordered Sig/Drew Route PRN Reason Start Time Stop Time Status Last Admin Dose Admin Acetaminophen (TYLenol 325MG ELIXIR) 650 mg Q6H6 PRN PO PAIN LEVEL 4 TO 6 11/15/24 18:30 12/15/24 18:29 11/15/24 18:32 650 MG Acetaminophen (TYLenol 650MG SUPPOSITORY) 650 mg Q6H PRN RC MILD PAIN (1-3) 11/11/24 20:30 11/15/24 18:26 DC Albuterol (DUOneb) 1 UDVIAL [id number] IH 11/12/24 00:00 12/12/24 00:00 11/16/24 07:03 1 UDVIAL Albuterol Sulfate (Proventil 0.083% 2.5mg/3ml) 2.5 mg [id number] IH 11/13/24 18:00 11/13/24 17:37 DC Albuterol Sulfate (Proventil 0.083% 2.5mg/3ml) 2.5 mg [id number] PRN IH SHORTNESS OF BREATH 11/13/24 17:30 12/13/24 17:59 Artificial Tears (Artificial Tears) 1 DROP OR AD Q2H PRN OU DRY EYES 11/13/24 14:30 12/13/24 14:29 11/13/24 17:32 1 DROP Atorvastatin Calcium (LIPItor 20MG) 20 mg HS PO 11/13/24 21:00 12/13/24 20:59 11/15/24 22:04 20 MG Budesonide (Pulmicort 0.5 Mg/2ml) 0.5 mg BIDRESP IH 11/12/24 06:00 12/12/24 05:59 11/16/24 07:03 0.5 MG Ceftriaxone Sodium (ROCEphine 1G INJ) 1 gm Q24H IVPB 11/12/24 10:00 11/12/24 14:30 DC 11/12/24 09:55 1 GM Chlorhexidine Gluconate (Peridex) 15 ml TID MM 11/13/24 21:00 11/27/24 20:59 11/16/24 10:10 15 ML Dextrose 1,000 ml @ 100 mls/hr Q10H IV 11/13/24 13:30 12/13/24 13:29 11/16/24 04:37 100 MLS/HR Diltiazem HCl 125 mg/Sodium Chloride 125 ml @ 0 mls/hr PROTOCOL IV 11/12/24 11:00 11/14/24 17:38 DC 11/14/24 06:32 5 MLS/HR Donepezil HCl (ARIcept 5MG TAB) 5 mg DAILY PO 11/14/24 09:00 12/14/24 08:59 11/16/24 10:09 5 MG Doxycycline Hyclate 250 ml @ 125 mls/hr Q12H IV 11/12/24 11:00 11/12/24 14:31 DC 11/12/24 11:03 125 MLS/HR Ferrous Sulfate (Ferrous Sulfate) 1 mg BIDMEALS PO 11/13/24 17:34 11/14/24 13:14 DC Ferrous Sulfate (Ferrous Sulfate) 325 mg BIDMEALS PO 11/14/24 17:00 12/13/24 17:33 11/16/24 10:12 325 MG Home Med (Home Medication) (Dulaglutide (Trulicity) 0.5 ML) QWEEK SQ 11/20/24 09:00 12/20/24 08:59 Hydralazine HCl (APRESOLine 20MG INJ) 5 mg Q6H PRN IV ADMINISTER FOR SBP > 160 11/12/24 10:00 11/12/24 09:50 DC Hydralazine HCl (APRESOLine 20MG INJ) 5 mg Q6H PRN IV For:SBP above 160;DBP above 90 11/12/24 14:30 12/12/24 14:29 Hydralazine HCl (APRESOLine 20MG INJ) 10 mg Q6H PRN IV For:SBP above 160;DBP above 90 11/11/24 20:30 11/12/24 09:44 DC Insulin Human Regular (humuLIN R 100 UNIT/ML 3ML) INSULIN SLIDING SCAL... ACHS SQ 11/11/24 21:00 11/12/24 09:44 DC 11/12/24 09:26 3 UNIT Insulin Human Regular (humuLIN R 100 UNIT/ML 3ML) INSULIN SLIDING SCAL... ACHS SQ 11/12/24 16:30 12/12/24 16:29 11/15/24 22:09 5 UNIT Iron Sucrose (VenoFER) 100 mg DAILY IV 11/12/24 13:00 11/12/24 14:07 DC Iron Sucrose (VenoFER) 100 mg DAILY IV 11/12/24 14:30 11/14/24 09:01 DC 11/14/24 09:38 100 MG Lactulose (Constulose 20gm/ 30ml Udcup) 20 gm BID PRN PO CONSTIPATION 11/15/24 11:00 12/15/24 10:59 11/15/24 15:36 20 GM Levothyroxine Sodium (SYNTHroid 100MCG TAB) 100 mcg SYN PO 11/14/24 06:30 12/14/24 06:29 11/16/24 06:31 100 MCG Memantine (NAmenDA 5 MG TAB) 10 mg DAILY PO 11/14/24 09:00 12/14/24 08:59 11/16/24 10:09 10 MG Meropenem (Merrem 500mg) 500 mg DAILY IV 11/15/24 09:00 11/14/24 14:11 DC Meropenem (Merrem 500mg) 500 mg Q12H9 IV 11/12/24 14:30 11/13/24 12:54 DC 11/13/24 09:46 500 MG Meropenem (Merrem 500mg) 500 mg Q24H IV 11/14/24 09:00 11/24/24 08:59 11/16/24 10:09 500 MG Meropenem (Merrem 500mg) 500 mg Q24H IV 11/14/24 13:30 11/14/24 13:15 DC Metoprolol Tartrate (loprESSOR) 5 mg Q6H PRN IV INCREASED HEART RATE 11/12/24 10:00 12/12/24 09:59 Metoprolol Tartrate (loprESSOR) 12.5 mg BID PO 11/12/24 10:00 12/12/24 09:59 11/16/24 10:09 12.5 MG Midodrine (PROAMatine 5 MG TABLET) 5 mg TID PO 11/15/24 15:00 12/15/24 14:59 11/16/24 10:10 5 MG Morphine Sulfate (morPHINE 2MG SYG) 2 mg Q4H PRN IVP SEVERE PAIN (7-10) 11/11/24 20:30 11/12/24 09:44 DC Ondansetron HCl (zoFRAN 4MG INJ) 4 mg Q6H PRN IV NAUSEA/VOMITING 11/11/24 20:30 12/11/24 20:29 Pharmacy Profile Note (Pharmacy Communication) 1 each AD MISC 11/12/24 21:00 11/13/24 14:28 DC Sertraline HCl (ZOloft 50 mg tab) 100 mg DAILY PO 11/14/24 09:00 12/14/24 08:59 11/16/24 10:10 100 MG Sodium Chloride 1,000 ml @ 50 mls/hr Q20H IV 11/11/24 20:30 11/13/24 13:33 DC 11/13/24 11:53 50 MLS/HR Sodium Chloride 1,000 ml @ 120 mls/hr Q8H20M IV 11/12/24 08:30 11/12/24 08:27 DC Thiamine HCl (Vitamin B-1) 100 mg DAILY IVP 11/13/24 09:00 12/13/24 08:59 11/16/24 10:09 100 MG DIAGNOSTICS / RADIOLOGY: [ ] ASSESSMENT: Acute COPD exacerbation, POA Acute Pulmonary edema, POA Anemia, s/p 1U pRBC (11/16/24) NATASHA on CKD, POA Possible sepsis due to pneumonitis, POA UTI secondary to Pseudomonas aeruginosa, POA History of penile cancer, with the indwelling catheter in place Atrial fibrillation with a RVR Uncontrolled Diabetes mellitius type2, POA Leukocytosis, POA Hypernatremia, POA Hyperlipidemia Dementia Hypothyroidism Anemia of chronic disease can not exclude acute GI bleed PLAN: Patient to be admitted to the PCU 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 Urology consulted for possible exchange of catheter. Case discussed. Continue the patient on meropenem IV, continue to follow ID input and recommendations. Disposition: Pending improvement in clinical condition. Family refusing hospice at this time, will be placed to SNF once cleared All questions answered time spent: > 35 min FABIOLA EMANUEL MD Nov 16, 2024 11:03
--- NOTE | 2024-11-16 13:32 | PN ---
NEPHROLOGY PROGRESS NOTE Date/Time Patient Seen: Nov 16, 2024 Reason for Consultation: 13:32 SUBJECTIVE: This is an 88-year-old male with a past medical history of atrial fibrillation on chronic anticoagulation, coronary artery disease, aortic stenosis, diabetes mellitus type 2, COPD, hyperlipidemia, chronic kidney disease, dementia, hypothyroidism, history of osteomyelitis and history of ulcers on his heels and midfoot. Patient was [facility] a local [facility] facility on 10/24/2024 under hospice care. Family decided to revoke hospice due to patient's declining condition. He continues on metoprolol for atrial fibrillation. He was noted with elevated BUN/creatinine, hypernatremia. We has been consulted for renal failure. Renal function remains elevated Electrolytes show a potassium of 2.8, S/p PRBC transfusion for hemoglobin of 5.8. Renal ultrasound showed obscured right kidney. Left kidney is normal in size and echogenicity and vascularity. No hydronephrosis Rivas catheter in place. Urine culture positive for Pseudomonas aeruginosa Continues on antibiotics. Continues on midodrine for hypotension. He was seen in the medical floor, in no acute distress Family at the bedside. Condition is critical and guarded REVIEW OF SYSTEMS: Unable to obtain due to patient's status PHYSICAL EXAM: GENERAL: Lethargic No acute distress. Well-nourished. EYES: EOMI. Anicteric. HENT: Moist mucous membranes. No scleral icterus. No cervical lymphadenopathy. LUNGS: Clear to auscultation bilaterally. No accessory muscle use. CARDIOVASCULAR: Regular rate and rhythm. No murmur. No JVD. ABDOMEN: Soft, non-tender and non-distended. No palpable masses. EXTREMITIES: No edema. Non-tender. SKIN: No rashes or lesions. Warm. NEUROLOGIC: No focal neurological deficits. CN II-XII grossly intact, but not individually tested. PSYCHIATRIC: Cooperative. Appropriate mood and affect. LABORATORY: [ ] Hematology Labs: Test 11/16/24 07:23 11/16/24 04:35 Range/Units Hemoglobin 5.8 *L 14.0-18.0 g/dL Hematocrit 19.2 *L 42-54 % White Blood Count 20.4 H 4.8-10.8 K/uL Red Blood Count 2.50 L 4.50-6.20 MIL/uL Mean Corpuscular Volume 87.6 79-99 fL Mean Corpuscular Hemoglobin 26.4 L 27.0-33.0 pg Mean Corpuscular Hemoglobin Concent 30.1 L 32.0-36.0 g/dL Red Cell Distribution Width 17.4 H 11.0-15.5 % Platelet Count 159 130-400 K/uL Mean Platelet Volume 9.4 7.5-10.5 fL Nucleated Red Blood Cells 0.2 H 0.0-0.19 % Chemistry Labs: Test 11/16/24 12:01 11/16/24 04:35 Range/Units Whole Blood Glucose 172 H 70-110 MG/DL Sodium Level 139 136-145 mmol/L Potassium Level 2.8 *L 3.5-5.1 mmol/L Chloride Level 97 L 101-111 mmol/L Carbon Dioxide Level 25 21-32 mmol/L Blood Urea Nitrogen 140 *H 7-18 mg/dL Creatinine 10.2 *H 0.5-1.3 mg/dL Glomerular Filtration Rate Calc 5 >90 mL/min Random Glucose 126 H 70-105 mg/dL Total Calcium 6.2 L 8.5-10.1 mg/dL Phosphorus Level 7.5 H 2.5-4.9 mg/dL Magnesium Level 1.30 L 1.80-2.40 mg/dL Total Bilirubin 0.3 0.2-1.0 mg/dL Aspartate Amino Transf (AST/SGOT) 38 H 10-37 U/L Alanine Aminotransferase (ALT/SGPT) 8 L 12-78 U/L Alkaline Phosphatase 76 50-136 U/L Total Protein 5.9 L 6.0-8.3 g/dL Albumin 1.4 L 3.5-5.0 g/dL DIAGNOSTICS / RADIOLOGY: REASON: dilated left pupil ORDERING PHYSICIAN: MIKE HERRMANN PROCEDURE: HEAD WO - CT HEAD/BRAIN W/O CONTRAST CT HEAD/BRAIN W/O CONTRAST HISTORY: Dilated left pupil COMPARISON: None TECHNIQUE: Multiple sequential axial images of the head were obtained from the base of the skull through vertex. Patient was not given contrast through intravenous route. FINDINGS: The ventricles and extraventricular CSF spaces are dilated consistent with cerebral atrophy. Nonspecific white matter changes seen. Encephalomalacia changes are seen in the left frontal lobe. There is no midline shift, mass effect or herniation. No acute intracranial bleed is seen. Visualized portion of the paranasal sinuses are grossly within normal limits. IMPRESSION: 1. No acute intracranial bleed is seen. 2. Atrophy with white matter changes. Encephalomalacia changes are noted of the left frontal lobe. CT was performed with one or more following dose reduction techniques: automated exposure control, adjustment of the mA and kv according to patient's size, or use of a iterative reconstruction technique. DICTATED BY: CARROLL KEENE MD DATE: 11/12/240 REASON: renal failure, r/o hydronephrosis ORDERING PHYSICIAN: NAHID RICCI MD PROCEDURE: ABD PEL WO - CT ABDOMEN/PELVIS W/O CONTRAST Exam Type: CT ABDOMEN/PELVIS W/O CONTRAST Clinical Information: renal failure, r/o hydronephrosis Comparison: None CT Dose Index (CTDI): 10.20 mGy Dose Length Product (DLP): 530.00 total mGy-cm PROTOCOL: Routine noncontrast helical scanning of the abdomen and pelvis was performed at 5mm collimation. Findings: No evidence of nephro or ureterolithiasis is found. No hydronephrosis or ureteral dilatation is seen. Ill-defined densities of the left upper lobe, lingula and left lower lobe seen consistent with pneumonia. Coronary arterial and cardiac valvular calcifications are identified. The stomach is unremarkable. It shows no wall thickening. No gross ulceration is seen. It is not overly distended. There are no surrounding inflammatory changes. No wall lesions are identified to suggest cancer. The spleen is unremarkable except for benign calcifications. It is not enlarged. The pancreas shows normal anatomy. It is not fatty replaced. It shows no lesions. The pancreatic duct is not dilated. The gallbladder is surgically absent. The adrenal glands are unremarkable. There is no enlargement. No lesions are noted. The liver is unremarkable. It shows no focal masses. The appendix is unremarkable. It shows no evidence of inflammation. No appendicolith is seen. The small bowel is unremarkable. There is no evidence of dilatation to suggest obstruction. No evidence of adynamic ileus is seen. There is no small bowel wall thickening to suggest enteritis. The colon is unremarkable. The urinary bladder is unremarkable. There is no wall thickening to suggest tumor or inflammation. There are no intraluminal calculi. There are no diverticula. There is no evidence of chronic bladder outlet obstruction. There is no evidence of urinary bladder distention to suggest urinary retention. The other pelvic structures are unremarkable. The bony and vascular structures are unremarkable for the patient's age. IMPRESSION: Left-sided pneumonia. Follow-up to complete radiographic resolution recommended. Other chronic findings as noted. This study was performed using dose reduction techniques to include automated exposure control and/or adjustment of the mA and/or kV according to patient size. DICTATED BY: HENRY FRANKS MD DATE: 11/12/24 1527 REASON: renal failure ORDERING PHYSICIAN: NAHID RICCI MD PROCEDURE: RENAL - US RENAL SONOGRAM Exam Type: US RENAL SONOGRAM Clinical Information: renal failure Comparison: None Findings and impression: Right kidney is obscured. Left kidney is normal in size and echogenicity and vascularity. No hydronephrosis. DICTATED BY: HENRY FRANKS MD DATE: 11/12/24 1233 REASON: sepsis ORDERING PHYSICIAN: NAHID RICCI MD PROCEDURE: CXR1VW - CHEST 1VW Exam Type: CHEST 1VW Clinical Information: sepsis Comparison: None Findings: Status post median sternotomy. Ill-defined infiltrates of the left lower lobe are seen consistent with pneumonia. . The heart is large in size. The bony and soft tissue structures show no worrisome pathology. IMPRESSION: Findings consistent with pneumonia. Follow-up is advised. DICTATED BY: HENRY FRANKS MD DATE: 11/12/24 1052 REASON: sepsis ORDERING PHYSICIAN: NAHID RICCI MD PROCEDURE: ABD 1VW - ABD 1VW Exam Type: ABD 1VW Clinical Information: sepsis Comparison: None Findings: Abdomen demonstrates no evidence of pathologic calcification or soft tissue mass. There are no radiopacities to suggest calculous disease. The intestinal gas pattern is within normal limits without evidence of dilatation to suggest obstruction or adynamic ileus. The bony structures are unremarkable. There is residual contrast within bowel. IMPRESSION: Normal abdomen. DICTATED BY: HENRY FRANKS MD DATE: 11/12/24 1036 REASON: hypoxia ORDERING PHYSICIAN: ELIJAH FERNANDEZ DO PROCEDURE: CXR1VW - CHEST 1VW FRONTAL CHEST RADIOGRAPH INDICATION: hypoxia COMPARISON: 11/10/2024 FINDINGS/IMPRESSION: monitoring tech leads overlie the field of view. Median sternotomy wires are in appropriate alignment. Patient positioning is not optimal, but the radiologic examination is still believed to be of reasonable diagnostic quality. Stable heart size without pulmonary vascular congestion. Unchanged left lung greater than right midlung pulmonary edema or other airspace disease, without pneumothorax. DICTATED BY: DARLENE DEAN MD DATE: 11/11/24 1723 ASSESSMENT: Hyponatremia Acute renal failure COPD exacerbation Pulmonary edema Uncontrolled diabetes mellitus type 2 Leukocytosis Atrial fibrillation Coronary artery disease Hypothyroidism Dementia PLAN: Labs, diagnostic, radiologic exams reviewed and interpreted by myself and supervising physician. We have reviewed external records in detail Patient remains poor candidate for any form of renal replacement therapy due to underlying conditions. Any form of renal replacement therapy is a high-risk procedure Pending family decision regarding plan of care Pending FOBT Recommend urology follow up for Rivas catheter management Continue with renally dose antibiotics as per ID We will continue to monitor the patient closely Require close monitoring of renal function and electrolytes Order CBC, CMP, and electrolytes in am BiPAP as necessary, for respiratory distress Monitor blood pressure adjust medication doses as needed Continue with the renally dose antibiotic Avoid hypotensive episodes May use Dilaudid 0.5 mg IV every 6 hours as needed for severe pain Monitor blood sugars Strict intake, output, and daily weight should be monitored Please renally adjust medications Avoid nephrotoxic and nonsteroidal drugs Avoid contrast if possible Will continue to monitor renal function, anemia, electrolytes Treatment plan discussed with patient Questions were answered We have discussed with the other team physicians in detail about the care plan We will continue to monitor the patient closely ATTESTATION BY PHYSICIAN I have seen and examined the patient. I reviewed the documentation, medical decision making, and treatment plan as noted by the mid-level provider above. I agree with the findings and plan of care. DAXA NARVAEZ MD, [facility] Nov 16, 2024 13:32
--- NOTE | 2024-11-16 14:43 | NUR ---
PT held patient pending blood products, multiple critical labs. PT following.
--- NOTE | 2024-11-16 15:23 | NUR ---
[facility] Consult: Patient assessed by wound healing team. See wound assessment. Assessment and recommendations provided to primary nurse. Education provided. Addendum: 11/17/24 at 1148 by NYDIA FIGUEROA RN RN/ Amended: Links added.
--- NOTE | 2024-11-16 16:00 | NUR ---
P[facility]IVE [facility] HOSPICE Education Sw met with daughter, who stated that she wanted to know what other programs there were that could keep pt comfortable and allow him to pass naturally, bu not hospice. Pt states she does not want hospice because all they did was medicated pt, to point he was a "zombie". "I want dad awake, and able to talk and eat". Daughter states she told NH not to medicate unless they talked to her first and they would medicate at night, so she does not want to use hospice again. Sw asked if pt complains of pain and she said "no". Daughter feels pt need rehab, "exercise will help him" It seems that daughters goal for pt, is to have him return to NH on skilled. Then arrange to have pt in the same room with and let him pass with her by his side. Explained to daughter that CM was made aware of our conversation and Marga will follow up with her.
--- NOTE | 2024-11-16 17:00 | NUR ---
BEDSIDE RE-EVALUATION COMPLETED. No s/s of aspiration however recommend NPO with short term alternate means due to vomiting green content right after any oral intake. Recommend advance to baseline diet (pureed solids, thin liquids) only after GI issues have resolved. BUSINESS CONTINUITY STRATEGY DIRECTOR reviewed results and recommendations with patient/family and nurse Mia. BUSINESS CONTINUITY STRATEGY DIRECTOR educated patient/family on risks and consequences of aspiration. Speech therapy not warranted at this time. All questions answered. Addendum: 11/16/[address]ISHA ALLEN Amended: Links added.
--- NOTE | 2024-11-16 17:13 | PN ---
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 Patient was recently discharged from this facility last month. Patient was seen and examined at bedside in room 225. Patient is oriented to person only. Patient is having productive coughing episodes. Requires assistance with meals. Patient is currently on oxygen via nasal cannula at 3 liters/minute. The final urine culture results came back positive for Pseudomonas aeruginosa. Patient continues with elevated WBC at 24.8 but has been remained afebrile for the past 48 hours. 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 Patient is currently on Meropenem and we will continue. Patient continues on renal failure, BUN of 149 and creatinine of 10.7. No reports of nausea or vomiting. We will continue to follow patient's care. PHYSICAL EXAM EYES: Anicteric. Pupils equal and reactive. HENT: No oral thrush seen, moist Oral mucosa. NECK: Supple, no JVD or thyromegaly. RESPIRATORY: Good air entry. Crackles. Productive cough. Oxygen support CARDIOVASCULAR: S1, S2 regular. No murmur heard. ABDOMEN: Soft, non tender, bowel sounds present, no organomegaly CENTRAL NERVOUS SYSTEM: Awake, alert, oriented x 1. SKIN: No rashes, no swelling. LYMPHATICS: No peripheral lymphadenopathy. MUSCULOSKELETAL: No joint swelling, erythema or tenderness. EXTREMITIES: No cyanosis or clubbing. Left 5th toe ulcer with gangrene. BACK: No deformity, no pressure ulcer. GENITOURINARY: No dysuria or hematuria. Vital Sign (Last 12 Hours) 11/16/24 11/16/24 11/16/24 11/16/24 07:03 07:57 08:36 11:14 Temp 98.8 Pulse 97 102 106 93 Resp 18 18 18 18 B/P (MAP) 100/48 Pulse Ox 96 O2 Delivery N/Cannula Low lpm Nasal Cannula O2 Flow Rate 3.0 2.0 FiO2 32 11/16/24 11/16/24 12:22 16:47 Temp 98.1 97.2 Pulse 81 70 Resp 18 18 B/P (MAP) 95/55 90/35 Pulse Ox 94 96 O2 Delivery Nasal Cannula Nasal Cannula O2 Flow Rate 2.0 2.0 Intake & Output (last 24hrs) 11/15/24 11/15/24 11/16/24 15:00 23:00 07:00 Intake Total 100.0 ml 1100.0 ml Output Total 100 ml 50 ml Balance 100.0 ml 1000.0 ml -50 ml LABS: Laboratory: Test 11/16/24 15:29 11/16/24 07:23 11/16/24 04:35 Range/Units Whole Blood Glucose 175 H 70-110 MG/DL Hemoglobin 5.8 *L 14.0-18.0 g/dL Hematocrit 19.2 *L 42-54 % White Blood Count 20.4 H 4.8-10.8 K/uL Red Blood Count 2.50 L 4.50-6.20 MIL/uL Mean Corpuscular Volume 87.6 79-99 fL Mean Corpuscular Hemoglobin 26.4 L 27.0-33.0 pg Mean Corpuscular Hemoglobin Concent 30.1 L 32.0-36.0 g/dL Red Cell Distribution Width 17.4 H 11.0-15.5 % Platelet Count 159 130-400 K/uL Mean Platelet Volume 9.4 7.5-10.5 fL Nucleated Red Blood Cells 0.2 H 0.0-0.19 % Sodium Level 139 136-145 mmol/L Potassium Level 2.8 *L 3.5-5.1 mmol/L Chloride Level 97 L 101-111 mmol/L Carbon Dioxide Level 25 21-32 mmol/L Blood Urea Nitrogen 140 *H 7-18 mg/dL Creatinine 10.2 *H 0.5-1.3 mg/dL Glomerular Filtration Rate Calc 5 >90 mL/min Random Glucose 126 H 70-105 mg/dL Total Calcium 6.2 L 8.5-10.1 mg/dL Phosphorus Level 7.5 H 2.5-4.9 mg/dL Magnesium Level 1.30 L 1.80-2.40 mg/dL Total Bilirubin 0.3 0.2-1.0 mg/dL Aspartate Amino Transf (AST/SGOT) 38 H 10-37 U/L Alanine Aminotransferase (ALT/SGPT) 8 L 12-78 U/L Alkaline Phosphatase 76 50-136 U/L Total Protein 5.9 L 6.0-8.3 g/dL Albumin 1.4 L 3.5-5.0 g/dL DIAGNOSTICS / RADIOLOGY: PATIENT: IDANIA GOLD JR MR#: [id number] : 1935 SEX: M AGE: 88 LOCATION: [facility] ORDER 2 STATUS: ADM IN REPORT#: [id number] SERVICE REASON: sepsis ORDERING PHYSICIAN: NAHID RICCI MD PROCEDURE: CXR1VW - CHEST 1VW Exam Type: CHEST 1VW Clinical Information: sepsis Comparison: None Findings: Status post median sternotomy. Ill-defined infiltrates of the left lower lobe are seen consistent with pneumonia. . The heart is large in size. The bony and soft tissue structures show no worrisome pathology. IMPRESSION: Findings consistent with pneumonia. Follow-up is advised. DICTATED BY: HENRY FRANKS MD DATE: 11/12/241051 ASSESSMENT: Urinary tract infection with Pseudomonas aeruginosa. Pneumonia. Leukocytosis. Left fifth toe ulcer with gangrene and osteomyelitis. Anemia. Acute renal failure. Diabetes mellitus. Dementia. Penile amputation with chronic Rivas catheter. PLAN: Continue Meropenem. We will follow up on the cultures. Continue wound care as recommended by despatching and receiving clerk. Continue oxygen support. Continue nutritional support. Continue monitoring glucose levels. Continue with aspiration precautions. This case was reviewed and discussed with my supervising physician and the above assessment and plan was formulated and agreed upon. ATTESTATION BY PHYSICIAN I have seen and examined the patient. I reviewed the documentation, medical decision making, and treatment plan as noted by the mid-level provider above. I agree with the findings and plan of care. KARIS YAÑEZ MD, [facility] [employer] [facility] Nov 16, 2024 17:13
[2024-11-16 18:10] LABS: HEMATOCRIT 23.9 % (42-54)
[2024-11-16] MEDS: ondanSETRON 4MG INJ IV PRN (20:03)
--- NOTE | 2024-11-16 21:04 | PN ---
[facility] PROGRESS NOTE Date Patient Seen: Nov 16, 2024 Time of Visit: 20:59 Supervising Physician: FRANNY HOANG MD Primary Care Physician: Dr. Ware Outpatient Specialists: [ ] Inpatient Consults: Pulmonary, cardiology, Nephrology PROBLEM LIST: Acute respiratory failure currently requiring nasal cannula supplementation. Hospital-acquired pneumonia. Acute urinary tract infection, with the presence of indwelling catheter. Culture positive for Pseudomonas aeruginosa Acute sepsis and shock suspect from pulmonary source versus urinary tract source. Acute hypernatremia. Dehydration. Atrial fibrillation with RVR, hypercoagulable state, not on anticoagulation due to recurrent anemia CKD stage V Hypothyroidism, TSH is elevated at 26.56 Iron deficiency Anemia Hypertension Dyslipidemia Diabetes mellitus type 2 History of SVT with successful ablation CAD s/p remote CABG Critical aortic stenosis s/p bioprosthetic valve replacement 06/2015 Dementia INTERVAL HISTORY: patient is very obtunded, confused and non verbal patient is on 4 liters O2 does not follow commands very edematous to upper and lower limbs bilaterally no fevers reported no seizures family at bedside urine output is low, no diarrhea no report of arrhythmias Creatinine is 10.2 he is not on hemodialysis REVIEW OF SYSTEMS: 12 point ROS reviewed with patient. Pertinent positives mentioned above. Otherwise negative. PHYSICAL EXAM: GENERAL: alert, weak, awake oriented x self HEENT: EOMI, Sclera non icteric, moist mucosa NECK: Supple, no JVD, trachea midline LUNGS: Clear breath sounds bilaterally. No wheezes HEART: Regular rate and rhythm. Normal S1 and S2, without murmurs ABD: Abdomen soft, nontender. Bowel sounds present EXT: No clubbing cyanosis or edema NEURO: Unable to carry out neurologic evaluation as the patient is not following commands. Vital Signs (last 8hr) Date Time Temp Pulse Resp B/P (MAP) Pulse Ox O2 Delivery O2 Flow Rate FiO2 11/16/24 19:30 98.2 92 18 105/49 93 Nasal Cannula 3.0 11/16/24 19:03 103 18 N/Cannula Low lpm 3.0 32 11/16/24 19:01 102 18 11/16/24 18:57 100 Nasal Cannula* 3 32 11/16/24 17:00 N/C Nasal Cannula 11/16/24 16:47 97.2 70 18 90/35 96 Nasal Cannula 2.0 LABS: Hematology Labs: Test 11/16/24 18:04 2/10/25 04:35 Range/Units Hemoglobin 7.8 #L 14.0-18.0 g/dL Hematocrit 23.9 #L 42-54 % White Blood Count 20.4 H 4.8-10.8 K/uL Red Blood Count 2.50 L 4.50-6.20 MIL/uL Mean Corpuscular Volume 87.6 79-99 fL Mean Corpuscular Hemoglobin 26.4 L 27.0-33.0 pg Mean Corpuscular Hemoglobin Concent 30.1 L 32.0-36.0 g/dL Red Cell Distribution Width 17.4 H 11.0-15.5 % Platelet Count 159 130-400 K/uL Mean Platelet Volume 9.4 7.5-10.5 fL Nucleated Red Blood Cells 0.2 H 0.0-0.19 % Chemistry Labs: Test 11/16/24 19:54 11/16/24 04:35 Range/Units Whole Blood Glucose 226 H 70-110 MG/DL Sodium Level 139 136-145 mmol/L Potassium Level 2.8 *L 3.5-5.1 mmol/L Chloride Level 97 L 101-111 mmol/L Carbon Dioxide Level 25 21-32 mmol/L Blood Urea Nitrogen 140 *H 7-18 mg/dL Creatinine 10.2 *H 0.5-1.3 mg/dL Glomerular Filtration Rate Calc 5 >90 mL/min Random Glucose 126 H 70-105 mg/dL Total Calcium 6.2 L 8.5-10.1 mg/dL Phosphorus Level 7.5 H 2.5-4.9 mg/dL Magnesium Level 1.30 L 1.80-2.40 mg/dL Total Bilirubin 0.3 0.2-1.0 mg/dL Aspartate Amino Transf (AST/SGOT) 38 H 10-37 U/L Alanine Aminotransferase (ALT/SGPT) 8 L 12-78 U/L Alkaline Phosphatase 76 50-136 U/L Total Protein 5.9 L 6.0-8.3 g/dL Albumin 1.4 L 3.5-5.0 g/dL DIAGNOSTICS / RADIOLOGY RESULTS: Chest x-ray shows bilateral pulmonary congestion with bilateral effusions PLAN patient is DNR/DNI family does not want hemodialysis will avoid fluid via IV in order to prevent fluid overload and pulmonary edema continue on supplemental oxygen aspiration precautions patient with UTI with pseudomonas, will continue on IV Zosyn Speech therapist evaluation for bedside swallow continue nebulizer treatments prognosis is poor NEURO: Minimize central acting medications as possible. Maintain fall precautions, adequate lighting during the day PULMONARY: Supplemental 02 as needed. Maintain aspiration precautions at all times CARDIOVASCULAR: Follow hemodynamics. Vital signs per facility protocol GI & NUTRITION: Continue with nutritional support. Continue stool softeners and laxatives as needed. KIDNEYS & ELECTROLYTES: Strict monitoring of intake, output and overall fluid balance. Avoid nephrotoxic medications to the extent possible. Medications to be dosed according to renal function. Monitor electrolytes and replace as needed ENDOCRINE: Maintain blood glucose between 100-180 at all times. Hypoglycemia protocol in place INFECTIOUS DISEASE: Trend temperature, WBC and procalcitonin level Follow cultures, deescalate antibiotics as soon as possible. Panculture if new onset fever ONCOLOGY/HEMATOLOGY/COAGULATION: Monitor for s/s of bleeding Monitor hemoglobin, coagulation studies as needed SKIN: Pressure ulcer prevention per facility protocol Specialty mattress ORTHO/REHAB: Continue PT/OT Prophylaxis: Continue GI and DVT prophylaxis Code Status: Full Resuscitation Disposition: TBD Other: Total patient care time exceeds 35 minutes excluding all procedures. progress note was scribed by Ravin Stoll medical investigator on my behalf and I can attest to the accuracy of the note I personally scribed for FRANNY HOANG MD ([email or web address]) on 11/16/24 at 21:04. Electronically submitted by Ravin Stoll ([email or web address]). FRANNY HOANG MD Nov 16, 2024 21:04
[2024-11-16] MEDS: BALSAM PERU/CASTOR OIL 60 GM TUBE TP SCH (21:14)
[2024-11-17] VITALS (9 sets, daily range): BP systolic 97–138; BP diastolic 44–72; PULSE 67–111; RESP 18–20; TEMP 97.8–98.7; O2SAT 93–100
[2024-11-17 04:04] LABS: HEMATOCRIT 25.8 % (42-54); MEAN CORPUSCULAR HEMOGLOBIN 27.3 pg (27.0-33.0); MEAN CORPUSCULAR HGB CONC 32.6 g/dL (32.0-36.0); MEAN CORPUSCULAR VOLUME 83.8 fL (79-99); RED BLOOD CELL COUNT(AUTO) 3.08 MIL/uL (4.50-6.20); RED CELL DISTRIBUTION WIDTH 16.4 % (11.0-15.5); WHITE BLOOD COUNT (AUTO) 22.8 K/uL (4.8-10.8)
[2024-11-17 05:35] LABS: ALBUMIN 1.4 g/dL (3.5-5.0); BILIRUBIN,TOTAL 0.5 mg/dL (0.2-1.0); MAGNESIUM 1.2 mg/dL (1.80-2.40); PHOSPHORUS 7.7 mg/dL (2.5-4.9); POTASSIUM 3.2 mmol/L (3.5-5.1)
[2024-11-17 05:58] LABS: CREATININE 10.1 mg/dL (0.5-1.3)
--- NOTE | 2024-11-17 06:26 | PN ---
SUBJECTIVE: The patient is a very pleasant 88-year-old diabetic Latin-Thai male. The patient has a white count of 22.8, H and H are 8.4 and 25.8, platelets 147. 7.3. BUN and creatinine are 1.40 and 10.2, glucose 226, albumin 1.4. The patient has been followed by the Nephrology Service. He has a history of atrial fibrillation, on chronic anticoagulation therapy, coronary artery disease, aortic stenosis, diabetes, chronic obstructive pulmonary disease, hyperlipidemia, dementia, hypothyroidism, history of osteomyelitis of the left fifth toe, history of ulcers to the left heel, left sub-fifth metatarsophalangeal joint and left fifth toe. The patient apparently had his hospice status recently revoked. His urine cultures are positive for Pseudomonas aeruginosa. He is being followed for hyponatremia, acute anemia, acute renal failure, chronic obstructive pulmonary disease, pulmonary edema, uncontrolled diabetes, leukocytosis, atrial fibrillation, coronary artery disease, hypothyroidism and dementia. The patient is felt to be a poor candidate for any form of renal replacement surgery by the Nephrology Service. The patient is DNR/DNI. Family does not want hemodialysis. The patient is being followed for urinary tract infection with Pseudomonas and receiving the IV Zosyn. PHYSICAL EXAMINATION: Today shows, he has nonpalpable pedal pulses to his feet bilaterally. He has dry gangrene to the left fifth toe, dry necrotic eschar ulcer sub-fifth metatarsophalangeal joint on the left, dry necrotic eschar to the posterior heel on the left. There is no abscess, no ascending cellulitis. Ulcer to the heel is approximately 35 x 35 x 1-2 mm with a black eschar base. There is no exposure of deeper structures. Gangrene is dry and stable to the fifth toe. Gangrene, is dry and stable to the fifth metatarsophalangeal joint. Gangrene is dry and stable to the posterior heel on the left. ASSESSMENT: The patient is an 88-year-old male with stage V renal insufficiency, considered a poor candidate for renal replacement therapy per the Nephrology Service. The patient's family is refusing dialysis for the patient. He is being followed for atrial fibrillation, anemia, status post blood transfusion, coronary artery disease, peripheral vascular disease, aortic stenosis, type 2 diabetes, dementia, chronic obstructive pulmonary disease, hyperlipidemia, chronic kidney disease, hypothyroidism, history of osteomyelitis of the left fifth toe, gangrene of the left fifth toe, gangrene of the fifth metatarsophalangeal joint, eschar ulcer to the posterior aspect of the left heel, uncontrolled diabetes. The patient with leukocytosis. The patient with urinary tract infection with Pseudomonas, receiving IV Zosyn. The patient with a white count of 22.8. PLAN: We will continue with IV antibiotics. The patient is currently receiving IV Merrem. Continue with offloading measures, Betadine dressings to the left fifth toe, left fifth metatarsophalangeal joint and left heel ulcer. Continue to follow the patient closely while in-house. He has poor prognosis given his renal failure for which he is not a candidate for hemodialysis. TID: [id number] RECEIPT: [id number]
--- NOTE | 2024-11-17 08:55 | NUR ---
Discharge Planning: Pt. accepted to return to [facility] yesterday. Was not stable for discharge. Received blood transfusion for hemoglobin of 5. PCP is monitoring. Nurse Jose made aware of acceptance. Yellow sheet and PCS flagged and placed in patient's chart.
--- NOTE | 2024-11-17 10:37 | CONS ---
CONSULTATION NOTE Date of Service: Nov 17, 2024 Reason for Consultation: [ ] Requesting Physician: [ ] HISTORY OF PRESENT ILLNESS: [ ] REVIEW OF SYSTEMS CONSTITUTIONAL: Denies fever, chills, or fatigue. HEAD/FACE: No signs of trauma. EENT: Denies eye pain, blurred vision, double vision, or light sensitivity. RESPIRATORY: Denies shortness of breath, cough, wheezing CARDIOVASCULAR: Denies chest pain, palpitation, syncope GASTROINTESTINAL/ABDOMINAL: Denies abdominal pain, constipation, diarrhea, nausea or vomiting GENITOURINARY: Denies dysuria or hematuria. MUSCULOSKELETAL: Denies joint pain, tenderness, or trauma. INTEGUMENTARY: Denies rash or itchiness NEUROLOGICAL/PSYCH: Denies anxiety, depression, heat or cold intolerance. PAST MEDICAL HISTORY: [ ] PAST SURGICAL HISTORY: [ ] PAST SOCIAL HISTORY: [ ] FAMILY HISTORY: [ ] Coded Allergies: No Known Allergies (Unverified Allergy, Unknown, 06/20/15) PHYSICAL EXAM EYES: Anicteric. Pupils equal and reactive. HENT: No oral thrush seen, moist Oral mucosa NECK: Supple, no JVD or thyromegaly. LUNGS: Good air entry. No rales, no rhonchi. CARDIOVASCULAR: S1, S2 regular. No murmur heard. ABDOMEN: Soft, non tender, bowel sounds present, no organomegaly CENTRAL NERVOUS SYSTEM: Awake, alert, oriented x 3. No focal deficits. SKIN: No rashes, no swelling. LYMPHATICS: No peripheral lymphadenopathy MUSCULOSKELETAL: No joint swelling, erythema or tenderness. EXTREMITIES: No cyanosis or clubbing BACK: No deformity, no pressure ulcer. GENITOURINARY: No dysuria or hematuria Vital Sign (Last 24 Hours) 11/17/24 11/17/24 07:01 08:02 Temp 98.8 Pulse 109 Resp 20 B/P (MAP) 138/72 Pulse Ox 98 O2 Delivery N/Cannula Low lpm O2 Flow Rate 3.0 FiO2 32 Intake & Output (last 24hrs) 11/16/24 11/16/24 11/17/24 15:00 23:00 07:00 Intake Total 1200.0 ml 1200.0 ml Output Total 200 ml Balance 1200.0 ml 1000.0 ml LABS: Laboratory: Test 11/17/24 06:05 11/17/24 03:42 Range/Units Whole Blood Glucose 208 H 70-110 MG/DL White Blood Count 22.8 H 4.8-10.8 K/uL Red Blood Count 3.08 #L 4.50-6.20 MIL/uL Hemoglobin 8.4 L 14.0-18.0 g/dL Hematocrit 25.8 L 42-54 % Mean Corpuscular Volume 83.8 79-99 fL Mean Corpuscular Hemoglobin 27.3 27.0-33.0 pg Mean Corpuscular Hemoglobin Concent 32.6 32.0-36.0 g/dL Red Cell Distribution Width 16.4 H 11.0-15.5 % Platelet Count 147 130-400 K/uL Mean Platelet Volume 9.5 7.5-10.5 fL Nucleated Red Blood Cells 0.0 0.0-0.19 % Sodium Level 129 L 136-145 mmol/L Potassium Level 3.2 L 3.5-5.1 mmol/L Chloride Level 89 *L 101-111 mmol/L Carbon Dioxide Level 25 21-32 mmol/L Blood Urea Nitrogen 138 *H 7-18 mg/dL Creatinine 10.1 *H 0.5-1.3 mg/dL Glomerular Filtration Rate Calc 5 >90 mL/min Random Glucose 185 H 70-105 mg/dL Total Calcium 5.7 *L 8.5-10.1 mg/dL Phosphorus Level 7.7 H 2.5-4.9 mg/dL Magnesium Level 1.20 L 1.80-2.40 mg/dL Total Bilirubin 0.5 # 0.2-1.0 mg/dL Aspartate Amino Transf (AST/SGOT) 35 10-37 U/L Alanine Aminotransferase (ALT/SGPT) 7 L 12-78 U/L Alkaline Phosphatase 83 50-136 U/L Total Protein 6.0 6.0-8.3 g/dL Albumin 1.4 L 3.5-5.0 g/dL DIAGNOSTICS / RADIOLOGY: [ ] PROBLEM LIST : Medical Problems: (1) Dehydration ICD Codes: E86.0 - Dehydration (2) Hypernatremia ICD Codes: E87.0 - Hyperosmolality and hypernatremia (3) Pneumonia ICD Codes: J18.9 - Pneumonia, unspecified organism (4) Renal failure ICD Codes: N19 - Unspecified kidney failure (5) Respiratory failure with hypoxia ICD Codes: J96.91 - Respiratory failure, unspecified with hypoxia (6) Sepsis ICD Codes: A41.9 - Sepsis, unspecified organism PLAN: [ ] KRZYSZTOF WALSH MD Nov 17, 2024 10:37
--- NOTE | 2024-11-17 10:38 | PN ---
[facility] PROGRESS NOTE Date of Service: Nov 17, 2024 Time of Service: 10:35 SUBJECTIVE: 11/12 patient is seen and examined at bedside, case discussed with the RN. No family members at bedside during my visit. BP 109/54, patient is still tachycardic, heart rate between 105-117, atrial fibrillation. Patient is saturating 97% on 3 L via nasal cannula. Blood tests reviewed, CBC with a he moglobin 8.4, hematocrit 29.4, WBC 15.4, platelet count of 253. CMP with sodium 160, potassium 3.5, BUN of 159, creatinine 2.5. Chest x-ray showing left lung greater than right mid lung pulmonary edema or other space disease, without pneumothorax. 11/13 patient seen and examined at bedside, case discussed with RN, no acute events overnight, patient more awake today compared to yesterday. He remains on Cardizem drip. Still mildly tachycardic, BP stable. Rivas catheter inserted, creatinine 11.9. The patient with a history of hypercoagulable state, not a candidate for anticoagulation secondary to history of recurrent anemia. Patient remains on metoprolol 12.5 mg p.o. b.i.d.. Patient getting broad-spectrum IV antibiotics at the time my visit, continue to follow results of septic workup. We will attempt to call the daughter over the phone to discuss considering hospice services as the prognosis of the patient is poor and guarded. 11/14 patient is seen and examined at bedside this morning, case discussed with the RN, no acute events overnight. During my visit the patient is awake, however due to advanced dementia not verbalizing, he does not following simple commands. 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 Total urine output during last night 12 hours shift 100 mL. He remains on Cardizem drip. Heart rate of 101, BP 105/55, afebrile. On nasal cannula at 3 L saturating 93-96%. WBC 20.2. Hemoglobin 7.1, hematocrit 24.7. Sodium slowly trending down 150. Potassium 3.0. Creatinine remains elevated 11.2. Magnesium 1.5. Urine culture positive for Pseudomonas aeruginosa. Patient getting IV antibiotics at the time of my visit. Daughter not present at the bedside during my visit, she has been updated over the phone since admission. All questions has been answered. I recommended to consider hospice as the patient a candidate for renal replacement therapy. We will discuss again today. 11/15 patient seen at bedside, no acute events overnight. Patient doing better with p.o. intake with daughter feeding at bedside. Plan [facility]. Blood pressure has been on the low side of normal with systolics ranging between 80 up to 87, saturating well on 3 L nasal cannula. We will start midodrine 5 mg t.i.d. WBC increased from 20.2 up to 24.8, hemoglobin improved from 7.1 up to 7.3, creatinine improved from 11.2 down to 10.7, we will continue with D5 water for 24 hours more and consider discontinuing tomorrow to see how patient does with p.o. supplementation. We will discuss with Nephrology as they may want further IV fluids before discontinuing. 11/16 patient seen at bedside, no acute events overnight. He has low-grade tachycardia versus AFib ranging from 97 up to 106 beats per minute, saturating well on hemoglobin was 6.6 this morning, a repeat was ordered and was even lower at 5.8, we will transfuse 1 unit packed red blood cells, fecal occult has been ordered and if positive GI will be consulted. Potassium be increased from 3.2 down to 2.8, we will be repleted according to protocol. Creatinine improved from 10.7 down to 10.2, proximally 150 cc of urine output in the last 24 hours. We will follow up with Nephrology regarding further recommendations. Patient had some hypotension yesterday, was started on midodrine 5 mg 3 times daily. Blood pressure better regulated today systolics ranging from 90 up to 100. 11/17 Pt seen at bedside, no acute events overnight. Hgb increased from 7.8 up to 8.4. Patient with minimal urine output, creatinine improved from 10.2 down to 10.1. He is a poor candidate for hemodialysis. Pending SNF placement at this time. Patient has been medically optimized with a high probability of decompensating. Family does not want hospice, however they have consented to DNR/DNI. Explained the high likelihood for decompensation if his renal function does not improve. REVIEW OF SYSTEMS CONSTITUTIONAL: Denies fevers, chills, or night sweats. No unintentional weight loss reported. NEUROLOGICAL: Denies headache, amaurosis fugax, motor weakness, sensory deficit, vertigo/spinning sensation, gait abnormalities, or tremors. ENT: No hearing loss, otalgia, otorrhea, rhinitis, rhinorrhea, hoarseness, or sore throat. CARDIOVASCULAR: Denies any exertional angina, dyspnea on exertion, orthopnea, paroxysmal nocturnal dyspnea, palpitations, life-threatening arrhythmias, jailene dication. PULMONARY: Denies any shortness of breath, cough, phlegm/sputum, hemoptysis, pleuritic chest pain. SLEEP: Denies morning headaches, daytime somnolence or napping. Denies difficulty falling asleep, staying asleep, waking from sleep. Denies knowledge of snoring. GASTROINTESTINAL: Denies any type of dysphagia to either liquids or solids. Denies nausea, vomiting, pyrosis, early satiety, abdominal pain, diarrhea, constipation, or changes in stool consistency or caliber. Denies coffee-ground emesis, hematemesis, hematochezia, or melanotic stools. GENITOURINARY: Denies frequency, urgency, nocturia, hematuria or incontinence (Storage/Irritative symptoms.) Low urinary stream, straining to void, urinary intermittency or hesitancy, splitting of the voiding stream, terminal dribbling. ENDOCRINOLOGIC: Denies polyuria, polydipsia, polyphagia or heat/cold intolerances. HEMATOLOGIC: Denies thrombophilia/previous clots, or coagulopathy/bleeding disorders. ONCOLOGIC: Denies personal history of malignancy. DERMATOLOGIC: Denies rashes or pruritus. PSYCHIATRIC: Denies any suicidal or homicidal ideation. Denies hallucinations. PHYSICAL EXAM GENERAL APPEARANCE: The patient comfortably in bed, not verbalizing, withdrawing to painful stimulation, looks very dehydrated. NEUROLOGICAL: Cranial nerves II-XII grossly intact. Motor is 5/5 in bilateral upper and lower extremities proximal to distal. No sensory deficits. HEENT: Face is symmetric. Pupils are equal and reactive. Extraocular movements are intact. NECK: Supple. No JVD. No thyromegaly. No submental, submandibular, pre- /postauricular, occipital or supraclavicular lymphadenopathy. CHEST: Normal chest expansion. No Telemetry. LUNGS: Absence of any rales, rhonchi or any wheezing. CARDIOVASCULAR: Regular. S1 and S2 normal. No appreciable rubs, murmurs or gallops. ABDOMEN: Soft, nontender, and nondistended. There is no rebound, voluntary guarding, or rigidity. : Deferred. No Rivas. EXTREMITIES: Non-edematous and not cyanotic. No clubbing. Good capillary re fill. SKIN: No skin breakdown. Vital Signs (last 8hr) Date Time Temp Pulse Resp B/P (MAP) Pulse Ox O2 Delivery O2 Flow Rate FiO2 11/17/24 08:02 98.8 109 20 138/72 98 3.0 11/17/24 07:02 91 19 11/17/24 07:01 91 19 N/Cannula Low lpm 3.0 32 11/17/24 03:30 97.9 111 18 106/44 97 Nasal Cannula 3.0 LABS: Laboratory: Test 11/17/24 06:05 11/17/24 03:42 Range/Units Whole Blood Glucose 208 H 70-110 MG/DL White Blood Count 22.8 H 4.8-10.8 K/uL Red Blood Count 3.08 #L 4.50-6.20 MIL/uL Hemoglobin 8.4 L 14.0-18.0 g/dL Hematocrit 25.8 L 42-54 % Mean Corpuscular Volume 83.8 79-99 fL Mean Corpuscular Hemoglobin 27.3 27.0-33.0 pg Mean Corpuscular Hemoglobin Concent 32.6 32.0-36.0 g/dL Red Cell Distribution Width 16.4 H 11.0-15.5 % Platelet Count 147 130-400 K/uL Mean Platelet Volume 9.5 7.5-10.5 fL Nucleated Red Blood Cells 0.0 0.0-0.19 % Sodium Level 129 L 136-145 mmol/L Potassium Level 3.2 L 3.5-5.1 mmol/L Chloride Level 89 *L 101-111 mmol/L Carbon Dioxide Level 25 21-32 mmol/L Blood Urea Nitrogen 138 *H 7-18 mg/dL Creatinine 10.1 *H 0.5-1.3 mg/dL Glomerular Filtration Rate Calc 5 >90 mL/min Random Glucose 185 H 70-105 mg/dL Total Calcium 5.7 *L 8.5-10.1 mg/dL Phosphorus Level 7.7 H 2.5-4.9 mg/dL Magnesium Level 1.20 L 1.80-2.40 mg/dL Total Bilirubin 0.5 # 0.2-1.0 mg/dL Aspartate Amino Transf (AST/SGOT) 35 10-37 U/L Alanine Aminotransferase (ALT/SGPT) 7 L 12-78 U/L Alkaline Phosphatase 83 50-136 U/L Total Protein 6.0 6.0-8.3 g/dL Albumin 1.4 L 3.5-5.0 g/dL Current Medications Medications (Trade) Dose Ordered Sig/Drew Route PRN Reason Start Time Stop Time Status Last Admin Dose Admin Acetaminophen (TYLenol 325MG ELIXIR) 650 mg Q6H6 PRN PO PAIN LEVEL 4 TO 6 11/15/24 18:30 12/15/24 18:29 11/15/24 18:32 650 MG Acetaminophen (TYLenol 650MG SUPPOSITORY) 650 mg Q6H PRN RC MILD PAIN (1-3) 11/11/24 20:30 11/15/24 18:26 DC Albuterol (DUOneb) 1 UDVIAL [id number] IH 11/12/24 00:00 12/12/24 00:00 11/17/24 06:59 1 UDVIAL Albuterol Sulfate (Proventil 0.083% 2.5mg/3ml) 2.5 mg [id number] IH 11/13/24 18:00 11/13/24 17:37 DC Albuterol Sulfate (Proventil 0.083% 2.5mg/3ml) 2.5 mg [id number] PRN IH SHORTNESS OF BREATH 11/13/24 17:30 12/13/24 17:59 Artificial Tears (Artificial Tears) 1 DROP OR AD Q2H PRN OU DRY EYES 11/13/24 14:30 12/13/24 14:29 11/13/24 17:32 1 DROP Atorvastatin Calcium (LIPItor 20MG) 20 mg HS PO 11/13/24 21:00 12/13/24 20:59 11/16/24 20:49 20 MG Budesonide (Pulmicort 0.5 Mg/2ml) 0.5 mg BIDRESP IH 11/12/24 06:00 12/12/24 05:59 11/17/24 06:59 0.5 MG Ceftriaxone Sodium (ROCEphine 1G INJ) 1 gm Q24H IVPB 11/12/24 10:00 11/12/24 14:30 DC 11/12/24 09:55 1 GM Chlorhexidine Gluconate (Peridex) 15 ml TID MM 11/13/24 21:00 11/27/24 20:59 11/17/24 08:54 15 ML Dextrose 1,000 ml @ 100 mls/hr Q10H IV 11/13/24 13:30 12/13/24 13:29 11/16/24 04:37 100 MLS/HR Diltiazem HCl 125 mg/Sodium Chloride 125 ml @ 0 mls/hr PROTOCOL IV 11/12/24 11:00 11/14/24 17:38 DC 11/14/24 06:32 5 MLS/HR Donepezil HCl (ARIcept 5MG TAB) 5 mg DAILY PO 11/14/24 09:00 12/14/24 08:59 11/17/24 08:53 5 MG Doxycycline Hyclate 250 ml @ 125 mls/hr Q12H IV 11/12/24 11:00 11/12/24 14:31 DC 11/12/24 11:03 125 MLS/HR Ferrous Sulfate (Ferrous Sulfate) 1 mg BIDMEALS PO 11/13/24 17:34 11/14/24 13:14 DC Ferrous Sulfate (Ferrous Sulfate) 325 mg BIDMEALS PO 11/14/24 17:00 12/13/24 17:33 11/17/24 08:53 325 MG Home Med (Home Medication) (Dulaglutide (Trulicity) 0.5 ML) QWEEK SQ 11/20/24 09:00 12/20/24 08:59 Hydralazine HCl (APRESOLine 20MG INJ) 5 mg Q6H PRN IV ADMINISTER FOR SBP > 160 11/12/24 10:00 11/12/24 09:50 DC Hydralazine HCl (APRESOLine 20MG INJ) 5 mg Q6H PRN IV For:SBP above 160;DBP above 90 11/12/24 14:30 12/12/24 14:29 Hydralazine HCl (APRESOLine 20MG INJ) 10 mg Q6H PRN IV For:SBP above 160;DBP above 90 11/11/24 20:30 11/12/24 09:44 DC Insulin Human Regular (humuLIN R 100 UNIT/ML 3ML) INSULIN SLIDING SCAL... ACHS SQ 11/11/24 21:00 11/12/24 09:44 DC 11/12/24 09:26 3 UNIT Insulin Human Regular (humuLIN R 100 UNIT/ML 3ML) INSULIN SLIDING SCAL... ACHS SQ 11/12/24 16:30 12/12/24 16:29 11/17/24 07:46 3 UNIT Iron Sucrose (VenoFER) 100 mg DAILY IV 11/12/24 13:00 11/12/24 14:07 DC Iron Sucrose (VenoFER) 100 mg DAILY IV 11/12/24 14:30 11/14/24 09:01 DC 11/14/24 09:38 100 MG Lactulose (Constulose 20gm/ 30ml Udcup) 20 gm BID PRN PO CONSTIPATION 11/15/24 11:00 12/15/24 10:59 11/15/24 15:36 20 GM Levothyroxine Sodium (SYNTHroid 100MCG TAB) 100 mcg SYN PO 11/14/24 06:30 12/14/24 06:29 11/16/24 06:31 100 MCG Memantine (NAmenDA 5 MG TAB) 10 mg DAILY PO 11/14/24 09:00 12/14/24 08:59 11/17/24 08:53 10 MG Meropenem (Merrem 500mg) 500 mg DAILY IV 11/15/24 09:00 11/14/24 14:11 DC Meropenem (Merrem 500mg) 500 mg Q12H9 IV 11/12/24 14:30 11/13/24 12:54 DC 11/13/24 09:46 500 MG Meropenem (Merrem 500mg) 500 mg Q24H IV 11/14/24 09:00 11/24/24 08:59 11/17/24 08:54 500 MG Meropenem (Merrem 500mg) 500 mg Q24H IV 11/14/24 13:30 11/14/24 13:15 DC Metoprolol Tartrate (loprESSOR) 5 mg Q6H PRN IV INCREASED HEART RATE 11/12/24 10:00 12/12/24 09:59 Metoprolol Tartrate (loprESSOR) 12.5 mg BID PO 11/12/24 10:00 12/12/24 09:59 11/16/24 20:49 12.5 MG Midodrine (PROAMatine 5 MG TABLET) 5 mg TID PO 11/15/24 15:00 12/15/24 14:59 11/17/24 08:53 5 MG Morphine Sulfate (morPHINE 2MG SYG) 2 mg Q4H PRN IVP SEVERE PAIN (7-10) 11/11/24 20:30 11/12/24 09:44 DC Ondansetron HCl (zoFRAN 4MG INJ) 4 mg Q6H PRN IV NAUSEA/VOMITING 11/11/24 20:30 12/11/24 20:29 11/17/24 04:09 4 MG Pharmacy Profile Note (Pharmacy Communication) 1 each AD MISC 11/12/24 21:00 11/13/24 14:28 DC Sertraline HCl (ZOloft 50 mg tab) 100 mg DAILY PO 11/14/24 09:00 12/14/24 08:59 11/17/24 08:53 100 MG Sodium Chloride 1,000 ml @ 50 mls/hr Q20H IV 11/11/24 20:30 11/13/24 13:33 DC 11/13/24 11:53 50 MLS/HR Sodium Chloride 1,000 ml @ 120 mls/hr Q8H20M IV 11/12/24 08:30 11/12/24 08:27 DC Thiamine HCl (Vitamin B-1) 100 mg DAILY IVP 11/13/24 09:00 12/13/24 08:59 11/17/24 08:55 100 MG Wound Care/ Dressing Products (Venelex Ointment) 1G TP BID BID TP 11/16/24 21:00 12/16/24 20:59 11/16/24 21:14 1 GM DIAGNOSTICS / RADIOLOGY: [ ] ASSESSMENT: Acute COPD exacerbation, POA Acute Pulmonary edema, POA Anemia, s/p 1U pRBC (11/16/24) NATASHA on CKD, POA Possible sepsis due to pneumonitis, POA UTI secondary to Pseudomonas aeruginosa, POA History of penile cancer, with the indwelling catheter in place Atrial fibrillation with a RVR Uncontrolled Diabetes mellitius type2, POA Leukocytosis, POA Hypernatremia, POA Hyperlipidemia Dementia Hypothyroidism Anemia of chronic disease can not exclude acute GI bleed PLAN: Patient to be admitted to the PCU Continue the patient on pvc monitor Transfuse 1U pRBC Start midodrine 5mg TID Fecal occult ordered, will consult GI if positive Continue the patient on Cardizem drip Echocardiogram to evaluate ejection fraction LVEF 55-60% Continue to follow Cardiology input recommendation Renal function remains elevated, the patient with minimal urine output, not a candidate for renal replacement therapy. Urology consulted for possible exchange of catheter. Case discussed. Continue the patient on meropenem IV, continue to follow ID input and recommendations. Disposition: Pending improvement in clinical condition. Family refusing hospice at this time, will be placed to SNF once cleared All questions answered time spent: > 35 min FABIOLA EMANUEL MD Nov 17, 2024 10:38
--- NOTE | 2024-11-17 12:22 | NUR ---
CM NOTE Plan of care discussed with Dr. Ramsay. Verified plan is to return to [facility] without hospice. Labs stable and no active bleeding report by nursing. CM updated MD that patient has been accepted to SNF. States he will discharge patient today. CM to arrange EMS. CM updated charge nurse.
--- NOTE | 2024-11-17 14:10 | NUR ---
REPORT GIVEN TO PRESTON AT [facility]. I ALSO CALLED EMS FOR ROUTINE TRANSPORT. ALL INFORMATION RE-FAXED TO [facility] FOR INSURANCE VERIFICATION (PER NICOLA RN HAD FAXED IT THIS MORNING ONCE VERIFICATION RECEIVED, BUT EMS STATED NOT RECEIVED). PHYSICAL COPY OF MEDICATION RECONCILIATION ALSO FAXED TO [facility]. I CALLED THE NUMBER FOR THE NEXT OF KIN ON FILE AND UPDATED THEM ON THE ABOVE.
--- NOTE | 2024-11-17 14:15 | NUR ---
PATEL JOHNSTON THAT PATIENT HAS URINARY CATHETER IN PLACE AND PERIPHRAL IV'S. STATED THAT IT WAS "OK TO GO AHEAD AND THESE THINGS IN PLACE AND THEY WILL GO AHEAD AND REMOVE THEM, BUT ONLY IF NEEDED. AT THIS POINT FAMILY IS CONSIDERING HOSPICE AND THIS WILL PREVENT PATIENT FROM BEING STUCK BY NEEDLES AND CATHETERS."
--- NOTE | 2024-11-17 18:08 | PN ---
[facility] PROGRESS NOTE Date Patient Seen: Nov 17, 2024 Time of Visit: 18:04 Supervising Physician: NICO LANTIGUA MD Primary Care Physician: Dr. Ware Outpatient Specialists: [ ] Inpatient Consults: Pulmonary, cardiology, Nephrology PROBLEM LIST: Acute respiratory failure currently requiring nasal cannula supplementation. Hospital-acquired pneumonia. Acute urinary tract infection, with the presence of indwelling catheter. Culture positive for Pseudomonas aeruginosa Acute sepsis and shock suspect from pulmonary source versus urinary tract source. Acute hypernatremia. Dehydration. Atrial fibrillation with RVR, hypercoagulable state, not on anticoagulation due to recurrent anemia CKD stage V Hypothyroidism, TSH is elevated at 26.56 Iron deficiency Anemia Hypertension Dyslipidemia Diabetes mellitus type 2 History of SVT with successful ablation CAD s/p remote CABG Critical aortic stenosis s/p bioprosthetic valve replacement 06/2015 Dementia INTERVAL HISTORY: Patient is an 88 year old gentleman, obtunded, weak, frail, no new issues over the last 24 hours has been managed with antibiotic therapy, adequate BP control, with multiple comorbidities disposition is to be discharge to [facility] all arrangements has been done, he is going to be discharge today REVIEW OF SYSTEMS: 12 point ROS reviewed with patient. Pertinent positives mentioned above. Otherwise negative. PHYSICAL EXAM: GENERAL: alert, weak, awake oriented x self HEENT: EOMI, Sclera non icteric, moist mucosa NECK: Supple, no JVD, trachea midline LUNGS: Clear breath sounds bilaterally. No wheezes HEART: Regular rate and rhythm. Normal S1 and S2, without murmurs ABD: Abdomen soft, nontender. Bowel sounds present EXT: No clubbing cyanosis or edema NEURO: Unable to carry out neurologic evaluation as the patient is not following commands. Vital Signs (last 8hr) Date Time Temp Pulse Resp B/P (MAP) Pulse Ox O2 Delivery O2 Flow Rate FiO2 11/17/24 12:11 98.6 99 20 105/47 98 Nasal Cannula 3.0 11/17/24 11:34 93 19 11/17/24 11:32 93 19 N/Cannula Low lpm 3.0 32 LABS: Hematology Labs: Test 11/17/24 03:42 Range/Units White Blood Count 22.8 H 4.8-10.8 K/uL Red Blood Count 3.08 #L 4.50-6.20 MIL/uL Hemoglobin 8.4 L 14.0-18.0 g/dL Hematocrit 25.8 L 42-54 % Mean Corpuscular Volume 83.8 79-99 fL Mean Corpuscular Hemoglobin 27.3 27.0-33.0 pg Mean Corpuscular Hemoglobin Concent 32.6 32.0-36.0 g/dL Red Cell Distribution Width 16.4 H 11.0-15.5 % Platelet Count 147 130-400 K/uL Mean Platelet Volume 9.5 7.5-10.5 fL Nucleated Red Blood Cells 0.0 0.0-0.19 % Chemistry Labs: Test 11/17/24 06:05 11/17/24 03:42 Range/Units Whole Blood Glucose 208 H 70-110 MG/DL Sodium Level 129 L 136-145 mmol/L Potassium Level 3.2 L 3.5-5.1 mmol/L Chloride Level 89 *L 101-111 mmol/L Carbon Dioxide Level 25 21-32 mmol/L Blood Urea Nitrogen 138 *H 7-18 mg/dL Creatinine 10.1 *H 0.5-1.3 mg/dL Glomerular Filtration Rate Calc 5 >90 mL/min Random Glucose 185 H 70-105 mg/dL Total Calcium 5.7 *L 8.5-10.1 mg/dL Phosphorus Level 7.7 H 2.5-4.9 mg/dL Magnesium Level 1.20 L 1.80-2.40 mg/dL Total Bilirubin 0.5 # 0.2-1.0 mg/dL Aspartate Amino Transf (AST/SGOT) 35 10-37 U/L Alanine Aminotransferase (ALT/SGPT) 7 L 12-78 U/L Alkaline Phosphatase 83 50-136 U/L Total Protein 6.0 6.0-8.3 g/dL Albumin 1.4 L 3.5-5.0 g/dL DIAGNOSTICS / RADIOLOGY RESULTS: [ ] PLAN patient is DNR/DNI family does not want hemodialysis Plan is to be discharge to [place]. NEURO: Minimize central acting medications as possible. Maintain fall precautions, adequate lighting during the day PULMONARY: Supplemental 02 as needed. Maintain aspiration precautions at all times CARDIOVASCULAR: Follow hemodynamics. Vital signs per facility protocol GI & NUTRITION: Continue with nutritional support. Continue stool softeners and laxatives as needed. KIDNEYS & ELECTROLYTES: Strict monitoring of intake, output and overall fluid balance. Avoid nephrotoxic medications to the extent possible. Medications to be dosed according to renal function. Monitor electrolytes and replace as needed ENDOCRINE: Maintain blood glucose between 100-180 at all times. Hypoglycemia protocol in place INFECTIOUS DISEASE: Trend temperature, WBC and procalcitonin level Follow cultures, deescalate antibiotics as soon as possible. Panculture if new onset fever ONCOLOGY/HEMATOLOGY/COAGULATION: Monitor for s/s of bleeding Monitor hemoglobin, coagulation studies as needed SKIN: Pressure ulcer prevention per facility protocol Specialty mattress ORTHO/REHAB: Continue PT/OT Prophylaxis: Continue GI and DVT prophylaxis Code Status: Full Resuscitation Disposition: TBD ATTESTATION BY PHYSICIAN Documentation assistance provided by a scribe, information recorded by the scribe was done at my direction and has been reviewed and validated by me." NICO LANTIGUA MD I personally scribed for GRZEGORZ WALSH MD ([email or web address]) on 11/17/24 at 18:08. Electronically submitted by Julienne Alva ([email or web address]). GRZEGORZ WALSH MD Nov 17, 2024 18:08
--- NOTE | 2024-11-17 21:37 | PN ---
FOLLOWUP NOTE DATE OF SERVICE: 11/17/2024 SUBJECTIVE: The patient is seen and examined at bedside today. No fever or chills. The patient is encephalopathic, bedbound, total care dependent. Remain on antibiotic. WBC remained elevated. Family continued to refuse hospice or comfort measure. PHYSICAL EXAMINATION: VITAL SIGNS: Temperature 97.6. EYES: No icterus. Pupils equal and reactive. HENT: Dry oral mucosa. No oral thrush seen. NECK: Supple, no JVD or thyromegaly. LUNGS: Crackles bilaterally, no rhonchi. CARDIOVASCULAR: S1, S2 regular. No murmur heard. ABDOMEN: Full, soft. Bowel sound is present. CENTRAL NERVOUS SYSTEM: The patient is awake, encephalopathic. SKIN: No rashes, no itchiness. LYMPHATIC: No peripheral lymphadenopathy. BACK: No deformity, no pressure ulcer. HEMATOLOGIC: No bleeding or peripheral lesions. ASSESSMENT: An 88-year-old male with multiple problems which include: * Urinary tract infection. * Pneumonia. * Respiratory failure. * End-stage renal disease. * Foot stump ulcer. * Obesity. * Oropharyngeal dysphagia. PLAN: * Continue pain management. * Continue wound care. * Continue Zosyn. * Continue PEG feeding. * Continue rehydration. * Monitor electrolytes. * The patient's prognosis is poor. TID: [id number] RECEIPT: [id number]
--- NOTE | 2024-11-17 22:09 | PN ---
SUBJECTIVE: This patient has multiple problems including renal failure. The patient has advanced renal failure, anemia and underlying DNR/DNI now. The patient's family has refused dialysis, but do not want hospice also. This patient's overall prognosis poor. The patient is poorly responsive. All the other system unchanged. REVIEW OF SYSTEMS: Not possible from the patient. CONSTITUTIONAL: Though, the patient has no fever or chills. HEENT: May have difficulty swallowing. No new vision complaint. RESPIRATORY: Has some shortness of breath. No orthopnea or PND. GASTROINTESTINAL: As above with may have difficulty swallowing. GENITOURINARY: Negative for dysuria and hematuria. NEUROLOGIC: Mental status changes, no seizures or syncope. ENDOCRINE: No polyuria, polydipsia or polyphagia. PHYSICAL EXAMINATION: GENERAL: Very elderly patient lying in bed, lethargic. VITAL SIGNS: Blood pressure is 138/72, pulse is 109, respiratory rate 20. HEENT: Head is atraumatic, normocephalic. Pupils are round and reactive. Sclerae are anicteric. Conjunctivae not pale. Oral mucosa is not dry. NECK: Without masses or bruits. Thyroid is palpable. Neck has no bruits. CHEST: Shows equal thoracic percussion note being resonant in all areas. CARDIAC: Regular rhythm, no rub, no S3, S4. No parasternal heave. ABDOMEN: No guarding or tenderness. Bowel sounds are normoactive. No free fluid. LABORATORY DATA: Labs have been reviewed in detail. Hemoglobin is low up to 8.4. White cell count is 22,000. Electrolytes have been reviewed. Old records reviewed. Imaging studies are personally reviewed. Hemoglobin and white cell count is elevated. Chemistries have shown creatinine up to 10, BUN of 138. Low sodium, low potassium. PROBLEMS: Renal failure, anemia, electrolyte problems, respiratory failure, pneumonia, possible aspiration, UTI, sepsis underlying history of atrial fibrillation, hypothyroidism, anemia, diabetes, hypertension, coronary artery disease and coronary artery bypass grafting. The patient has aortic valve replacement before. PLAN: * At this time, the patient is critically ill. I have discussed with the other team members and family. Family has refused any dialysis support before. The patient is DNR. Family does not want hospice also. * Discharge planning to [place] is being considered. * We have discussed with other team members. * Supportive care to continue as per wishes of his family. Please avoid nonsteroidal drug, nephrotoxic. Adjust doses of medicine. Labs and x-rays were personally reviewed. Follow up labs as needed will be done in [place]. Continued monitoring of electrolytes and mental status. Overall status. Family apparently refused the feeding also. Overall condition remained poor and guarded. Thank you for this patient. TID: [id number] RECEIPT: [id number]
[2024-11-20] MEDS ORDERED: DULAGLUTIDE SQ SCH (09:00)
== END 2024-11-17 17:20 | DRG 871 ==
LOC: EDH 15:43 → EDHIP 20:09 → 2DH 11-13 13:30
PROVIDERS: ADMIT Internal Medicine; ATTEND Internal Medicine
PROC: 30233N1 Transfusion of Nonautologous Red Blood Cells into Peripheral Vein, Percutaneous Approach (ICD-10-PCS; principal; 2024-11-16)
DX: A41.52 Sepsis due to Pseudomonas (principal); J18.9 Pneumonia, unspecified organism; N18.6 End stage renal disease; R65.21 Severe sepsis with septic shock; J69.0 Pneumonitis due to inhalation of food and vomit; J96.00 Acute respiratory failure, unspecified whether with hypoxia or hypercapnia; J44.1 Chronic obstructive pulmonary disease with (acute) exacerbation; N39.0 Urinary tract infection, site not specified; E87.1 Hypo-osmolality and hyponatremia; M86.9 Osteomyelitis, unspecified; N17.9 Acute kidney failure, unspecified; D68.59 Other primary thrombophilia; E87.0 Hyperosmolality and hypernatremia; I12.0 Hypertensive chronic kidney disease with stage 5 chronic kidney disease or end stage renal disease; J44.0 Chronic obstructive pulmonary disease with (acute) lower respiratory infection; E11.52 Type 2 diabetes mellitus with diabetic peripheral angiopathy with gangrene; Z20.822 Contact with and (suspected) exposure to COVID-19; Z74.01 Bed confinement status; Z66 Do not resuscitate; E11.22 Type 2 diabetes mellitus with diabetic chronic kidney disease; I48.0 Paroxysmal atrial fibrillation; E78.00 Pure hypercholesterolemia, unspecified; E03.9 Hypothyroidism, unspecified; E11.65 Type 2 diabetes mellitus with hyperglycemia; D63.1 Anemia in chronic kidney disease; E66.9 Obesity, unspecified; E86.0 Dehydration; E87.6 Hypokalemia; G93.89 Other specified disorders of brain; J98.4 Other disorders of lung; Y95 Nosocomial condition; R13.12 Dysphagia, oropharyngeal phase; F03.90 Unspecified dementia, unspecified severity, without behavioral disturbance, psychotic disturbance, mood disturbance, and anxiety; I25.10 Atherosclerotic heart disease of native coronary artery without angina pectoris; L97.529 Non-pressure chronic ulcer of other part of left foot with unspecified severity; Z95.1 Presence of aortocoronary bypass graft; Z95.3 Presence of xenogenic heart valve; Z79.01 Long term (current) use of anticoagulants; Z79.51 Long term (current) use of inhaled steroids; Z99.2 Dependence on renal dialysis; Z85.49 Personal history of malignant neoplasm of other male genital organs; Z83.3 Family history of diabetes mellitus; Z91.158 Patient's noncompliance with renal dialysis for other reason; Z68.26 Body mass index [BMI] 26.0-26.9, adult
CPT/HCPCS: 36415; 36430; 36600; 70450; 71045; 74018; 74176; 76770; 80048; 80053; 81001; 82435; 82550; 82570; 82728; 82803; 82947; 82948; 83036; 83540; 83550; 83605; 83735; 83880; 83935; 84100; 84132; 84145; 84295; 84300; 84439; 84443; 84484; 84550; 85014; 85018; 85025; 85027; 85610; 86850; 86900; 86901; 86923; 87040; 87086; 87186; 87426; 87804; 87880; 92610; 93005; 93306; 94640; 94664; G0378; J0696; J1756; J1815; J2185; J2405; J3411; J3490; J7120; P9016